=== PATIENT | female | born 1945 | race Caucasian/White ===

== ENCOUNTER 2016-09-08 06:29 | Day surgery (SDC) | payer MEDICARE, OTHER ==
[2016-09-07 09:48] VITALS: BMI 26.6
[~2016-09-08 06:29] MED LIST: LACTATED RINGERS 1,000 ML IV SCH
[2016-09-08] MEDS: PHENYLEPHRINE 10% OPHTH DROPS 5 ML BTL OP ONE ×3 (06:45→07:05)
[2016-09-08] MEDS: CYCLOPENTOLATE 1% OPHTH SOLN 2 ML BTL OP ONE ×3 (06:48→07:08)
[2016-09-08 06:52] VITALS: TEMP 97.9
[2016-09-08] MEDS: FLURBIPROFEN 0.03% OPHTH DROPS 2.5 ML BTL OP ONE ×3 (06:52→07:13)
[2016-09-08] MEDS ORDERED: LIDOCAINE 1% 20 ML VIAL (10MG/ML) FOR IV START INTRADERMA ONE (07:19)
[2016-09-08] MEDS: BUPIVACAINE (PF) 0.75% 5 ML, LIDOCAINE 4% (PF) 5 ML, HYALURONIDASE, HUMAN RECOMB 150 UNIT MISCELLANE ONE ×6 (07:49→07:55)
[2016-09-08] MEDS ORDERED: PROPOFOL 10 MG/ML 20 ML VIAL IV ONE (07:49)
[2016-09-08] MEDS ORDERED: TETRACAINE 0.5% OPHTH (PF) DROPS 4 ML BTL RIGHT EYE ONE (07:49)
[2016-09-08] MEDS: GENTAMICIN/PREDNISOL AC OPHTH OINT 3.5GM OPHTHALMIC ONE ×2 (07:51→08:03)
[2016-09-08] MEDS: TIMOLOL 0.5% OPHTH SOLN (PF) 0.2 ML DROPERETTE OP ONE ×2 (07:52→08:03)
[2016-09-08] MEDS ORDERED: BALANCED SALT IRRIG SOLN COMB2 15 ML IRRIG.SOLN IRRIGATION ONE ×2 (07:53→08:03)
[2016-09-08] MEDS ORDERED: HYALURONATE SODIUM INTRAOCULAR 1 EACH SYRINGE (10MG/ML) INTRAOCULA ONE ×2 (07:54→08:03)
[2016-09-08] MEDS ORDERED: EPINEPHrine (PF) 0.5 ML in BALANCED SALT IRRIG SOLN COMB2 500 ML IRRIGATION ONE (08:02)
[2016-09-08 08:18] VITALS: RESP 18
--- NOTE | 2016-09-08 08:18 | P.OP ---
Date of Procedure: 09/08/16 Preoperative Diagnosis: Postoperative Diagnosis: Procedure(s) Performed: PREOPERATIVE DIAGNOSIS: Cataract, right eye. POSTOPERATIVE DIAGNOSIS: Cataract, right eye. OPERATION: Phacoemulsification cataract, right eye. DESCRIPTION OF PROCEDURE: The patient was taken to the preoperative holding area. Intravenous Propofol was given so as to bring about adequate sedation. The following mixture was given for local anesthesia: 5 mL of 2% lidocaine, 5 mL of 0.75% Marcaine, and 1 mL of Wydase. Approximately 4 mL was injected in the retrobulbar space of the surgical eye. Additional 1 mL was then directed to the temporal area of the surgical eye. This was performed to allow adequate neurological block of the facial muscles. The patient was revived and then taken into the operative room. The patient was prepped and draped in the usual sterile manner for the operative eye. A lid speculum was put into position. The conjunctiva was resected back from the limbus in the 12 o'clock position. Bleeding was controlled with electrocautery. A #69 blade was then used and a half-thickness scleral incision approximately 1-mm posterior to the limbus was made on bare sclera. This was shelved in the clear cornea using a crescent knife. The paient's steep axis of astigmatism was marked using a pre-inked corneal marking device. Next a 15-degree blade was used to make a stab incision at the 3 o'clock position at the corneolimbal interface. Keratome blade was then used and the superior wound was extended into the anterior chamber. Viscoelastic was injected into the anterior chamber and to maintain its form. Next, a cystotome was used and a continuous anterior capsulotomy was made without difficulty. Hydrodissection using a blunt cannula and BSS was performed. Phaco probe was then employed and a groove extending from 12 to 6 o' clock in the lens was created. A Yohan wand was used through the stab incision so as to perform a divide and conquer technique. Next an irrigation aspiration probe was utilized and any residual cortex was removed from the eye. Again, viscoelastic was injected into the anterior chamber. An MERLYN Symfony toric posterior chamber lens implant was placed in the cartridge and injected into the anterior chamber without difficulty. The Sinskey hook was utilized to spin the lens into position and this was again performed without any difficulty. The irrigation and aspiration probe was again employed and any residual viscoelastic was removed from the eye. Then BSS was injected into the limbal stab incision and the anterior chamber re-inflated. The conjunctiva was reapproximated using electrocautery. One drop of 0.25% Timoptic was placed over the corneal along with TobraDex ophthalmic ointment. Two sterile patches and a Dahl eye shield were taped into position. The patient was transported to the recovery room in stable condition. Implants: Pathology: none sent Condition: stable Disposition: same day Indications for Procedure: Operative Findings: Description of Procedure:
[2016-09-08 08:33] VITALS: BP 111/63; PULSE 60
== END 2016-09-08 09:05 | disposition home or self-care (01) ==
LOC: OR 06:29
PROVIDERS: ATTEND Ophthalmology
DX: H25.11 Age-related nuclear cataract, right eye (principal); M19.90 Unspecified osteoarthritis, unspecified site; I10 Essential (primary) hypertension; E07.9 Disorder of thyroid, unspecified; K21.9 Gastro-esophageal reflux disease without esophagitis; Z79.891 Long term (current) use of opiate analgesic; Z79.899 Other long term (current) drug therapy; Z88.0 Allergy status to penicillin; Z88.1 Allergy status to other antibiotic agents; Z91.09 Other allergy status, other than to drugs and biological substances
CPT/HCPCS: 66984; V2787; C1780; J2001; J3470; J0171; J2704

== ENCOUNTER 2016-09-22 09:50 | Day surgery (SDC) | payer MEDICARE, OTHER ==
[2016-09-15 11:49] VITALS: BMI 26.6
[2016-09-22] MEDS: CYCLOPENTOLATE 1% OPHTH SOLN 2 ML BTL OP ONE ×3 (11:09→11:31)
[2016-09-22] MEDS: FLURBIPROFEN 0.03% OPHTH DROPS 2.5 ML BTL OP ONE ×3 (11:12→11:34)
[2016-09-22] MEDS: PHENYLEPHRINE 10% OPHTH DROPS 5 ML BTL OP ONE ×3 (11:16→11:37)
[2016-09-22 11:29] VITALS: TEMP 98.5
[2016-09-22] MEDS ORDERED: LIDOCAINE 1% 20 ML VIAL (10MG/ML) FOR IV START INTRADERMA ONE (11:32)
[2016-09-22] MEDS ORDERED: PROPOFOL 10 MG/ML 20 ML VIAL IV ONE (11:42)
[2016-09-22] MEDS ORDERED: fentaNYL (PF) 50 MCG/ML 2 ML AMP ONE (11:42)
[2016-09-22] MEDS ORDERED: MIDAZOLAM 2 MG/2 ML VIAL ONE (11:42)
[2016-09-22] MEDS ORDERED: TETRACAINE 0.5% OPHTH (PF) DROPS 4 ML BTL LEFT EYE ONE (11:46)
[2016-09-22] MEDS ORDERED: EPINEPHrine (PF) 0.5 ML in BALANCED SALT IRRIG SOLN COMB2 500 ML IRRIGATION ONE (11:49)
[2016-09-22] MEDS ORDERED: HYALURONATE SODIUM INTRAOCULAR 1 EACH SYRINGE (10MG/ML) INTRAOCULA ONE (11:51)
[2016-09-22] MEDS ORDERED: BALANCED SALT IRRIG SOLN COMB2 15 ML IRRIG.SOLN IRRIGATION ONE (11:51)
--- NOTE | 2016-09-22 12:09 | P.OP ---
Date of Procedure: 09/22/16 Preoperative Diagnosis: Postoperative Diagnosis: Procedure(s) Performed: PREOPERATIVE DIAGNOSIS: Cataract, left eye. POSTOPERATIVE DIAGNOSIS: Cataract, left eye. OPERATION: Phacoemulsification cataract, left eye. DESCRIPTION OF PROCEDURE: The patient was taken to the preoperative holding area. Intravenous Propofol was given so as to bring about adequate sedation. The following mixture was given for local anesthesia: 5 mL of 2% lidocaine, 5 mL of 0.75% Marcaine, and 1 mL of Wydase. Approximately 4 mL was injected in the retrobulbar space of the surgical eye. Additional 1 mL was then directed to the temporal area of the surgical eye. This was performed to allow adequate neurological block of the facial muscles. The patient was revived and then taken into the operative room. The patient was prepped and draped in the usual sterile manner for the operative eye. A lid speculum was put into position. The conjunctiva was resected back from the limbus in the 12 o'clock position. Bleeding was controlled with electrocautery. A #69 blade was then used and a half-thickness scleral incision approximately 1-mm posterior to the limbus was made on bare sclera. This was shelved in the clear cornea using a crescent knife. The steep axis of astigmatism was marked using a pre-inked corneal marking device. Next a 15-degree blade was used to make a stab incision at the 3 o'clock position at the corneolimbal interface. Keratome blade was then used and the superior wound was extended into the anterior chamber. Viscoelastic was injected into the anterior chamber and to maintain its form. Next, a cystotome was used and a continuous anterior capsulotomy was made without difficulty. Hydrodissection using a blunt cannula and BSS was performed. Phaco probe was then employed and a groove extending from 12 to 6 o' clock in the lens was created. A Yohan wand was used through the stab incision so as to perform a divide and conquer technique. Next an irrigation aspiration probe was utilized and any residual cortex was removed from the eye. Again, viscoelastic was injected into the anterior chamber. An MERLYN toric Symfony posterior chamber lens implant was placed in the cartridge and injected into the anterior chamber without difficulty. The Sinskey hook was utilized to spin the lens into position and this was again performed without any difficulty. The irrigation and aspiration probe was again employed and any residual viscoelastic was removed from the eye. Then BSS was injected into the limbal stab incision and the anterior chamber re-inflated. The conjunctiva was reapproximated using electrocautery. One drop of 0.25% Timoptic was placed over the corneal along with TobraDex ophthalmic ointment. Two sterile patches and a Dahl eye shield were taped into position. The patient was transported to the recovery room in stable condition. Implants: Pathology: none sent Condition: stable Disposition: same day Indications for Procedure: Operative Findings: Description of Procedure:
[2016-09-22 12:10] VITALS: BP 133/78; PULSE 54; RESP 18
[2016-09-22] MEDS ORDERED: BUPIVACAINE (PF) 0.75% 5 ML, LIDOCAINE 4% (PF) 5 ML, HYALURONIDASE, HUMAN RECOMB 150 UNIT MISCELLANE ONE ×3 (23:00)
[2016-09-22] MEDS ORDERED: TIMOLOL 0.5% OPHTH SOLN (PF) 0.2 ML DROPERETTE OP ONE (23:00)
[2016-09-22] MEDS ORDERED: GENTAMICIN/PREDNISOL AC OPHTH OINT 3.5GM OPHTHALMIC ONE (23:00)
== END 2016-09-22 12:44 | disposition home or self-care (01) ==
LOC: OR 09:50
PROVIDERS: ATTEND Ophthalmology
DX: H26.9 Unspecified cataract (principal); I10 Essential (primary) hypertension; E07.9 Disorder of thyroid, unspecified; K21.9 Gastro-esophageal reflux disease without esophagitis; Z88.0 Allergy status to penicillin; Z79.899 Other long term (current) drug therapy
CPT/HCPCS: 66984; V2787; C1780; J2001; J2250; J3470; J0171; J3010; J2704

== ENCOUNTER → 2017-01-11 | Outpatient (CLI) | payer MEDICARE ==
--- NOTE | 2017-01-11 16:18 | BD ---
EXAMINATION TYPE: MG DEXA axial skeleton. DATE OF EXAM: 01/11/2017 COMPARISON: 2013 CLINICAL HISTORY: 71-year-old female osteoporosis Height: 5'5 Weight: 160 FRAX RISK QUESTIONS: Alcohol (3 or more units per day): no Family History (Parent hip fracture): yes Glucocorticoids (More than 3mos): no (Ex: prednisone, prednisolone, methylprednisolone, dexamethasone, and hydrocortisone). History of Fracture in Adulthood: yes Secondary Osteoporosis: 1. Type 1 Diabetes: no 2. Hyperthyroidism: no 3. Menopause before 45: no 4. Malnutrition: no 5. Chronic liver disease: no Rheumatoid Arthritis: no Current Tobacco Use: no RISK FACTORS HISTORY OF: Surgery to /Hip(right/left)/ When: total hips rt 2013, left 2016 Diet low in dairy products/other sources of calcium: Postmenopausal woman: MEDICATIONS: Thyroid Medications: Which medication: Levothyroxine How Lon year Additional Medications: blood pressure, potassium, Additional History: osteoporosis, breast cancer 1996, radiation EXAM MEASUREMENTS: Bone mineral densitometry was performed using the [employer]. Bone mineral density as measured about the Lumbar spine is: ----- L1-L4(G/cm2): 1.161 T Score Values are as follows: ----- L2: -1.2 ----- L3: 0.8 ----- L4: 1.2 ----- L1-L4: -0.2 Bone mineral density has: Increased 5.8% since study of: 12/07/2013 IMPRESSION: Osteopenia as indicated by T score values in the lumbar spine. Patient is status post bilateral hip r eplacements. There is slightly increased risk of fracture and the patient may be considered for treatment. Re-Scre en 2-5 years. NOTE: T-SCORE=SD OF THE YOUNG ADULT MEAN.
== END | disposition home or self-care (01) ==
LOC: RADBDWWP 15:37
PROVIDERS: ATTEND Internal Medicine
DX: M85.88 Other specified disorders of bone density and structure, other site (principal)
CPT/HCPCS: 77080

== ENCOUNTER 2018-02-10 09:55 | Inpatient (IN) | payer MEDICARE ==
--- NOTE | 2018-02-10 10:29 | ED ---
General Adult HPI - General Chief complaint: Neuro Symptoms/Deficit Stated complaint: Facial numbness Time Seen by Provider: 02/10/18 10:02 Source: patient, RN notes reviewed, old records reviewed Mode of arrival: wheelchair Limitations: no limitations - History of Present Illness Initial comments: 72-year-old female presenting for evaluation of left-sided facial numbness and facial droop. Symptoms began yesterday evening approximately 14 hours prior to arrival. Patient reports some drooling associated with her symptoms. Denies headache. Denies vision changes. Denies extremity numbness or weakness. No gait instability. No chest pain. No abdominal pain. No history of TIA or CVA. - Related Data Home Medications Medication Instructions Recorded Confirmed Diltiazem Cd [Cardizem CD] 180 mg PO W/SUPPER 09/17/13 02/10/18 Venlafaxine HCl ER [Effexor Xr] 150 mg PO W/SUPPER 09/17/13 02/10/18 ALPRAZolam [Xanax] 0.25 mg PO Q8HR PRN 02/04/15 02/10/18 Cholecalciferol [Vitamin D3] 1,000 unit PO W/SUPPER 02/04/15 02/10/18 Omeprazole [PriLOSEC] 20 mg PO AC-BRKFST 02/04/15 02/10/18 Potassium Chloride ER [K-Dur 10] 10 meq PO W/SUPPER 02/04/15 02/10/18 Bisoprol/Hydrochlorothiazide [Ziac 1 tab PO W/SUPPER 09/07/16 02/10/18 5-6.25 MG] Levothyroxine Sodium [Tirosint] 25 mcg PO DAILY 09/07/16 02/10/18 Allergies Allergy/AdvReac Type Severity Reaction Status Date / Time amoxicillin trihydrate Allergy Unknown Verified 02/10/18 11:22 [From Augmentin] Penicillins Allergy Rash/Hives Verified 02/10/18 11:22 potassium clavulanate Allergy Unknown Verified 02/10/18 11:22 [From Augmentin] Review of Systems ROS Statement: Those systems with pertinent positive or pertinent negative responses have been documented in the HPI. ROS Other: All systems not noted in ROS Statement are negative. Past Medical History Past Medical History: Cancer, Hypertension, Osteoarthritis (OA), Thyroid Disorder Additional Past Medical History / Comment(s): varicose vein, hiatal hernia, hx anemia, hx breast cancer History of Any Multi-Drug Resistant Organisms: None Reported Past Surgical History: Breast Surgery, Cholecystectomy, Hysterectomy, Joint Replacement, Tonsillectomy Additional Past Surgical History / Comment(s): aidan hip replacement (left 2017), kidney stone removal/stents, breast lumpectomy-left, rt cataract surgery Past Anesthesia/Blood Transfusion Reactions: Postoperative Nausea & Vomiting ( PONV) Past Psychological History: Anxiety Smoking Status: Never smoker Past Alcohol Use History: None Reported Past Drug Use History: None Reported - Past Family History Mother Family Medical History: Cancer Daughter(s) Family Medical History: Cancer General Exam Limitations: no limitations General appearance: alert, in no apparent distress Head exam: Present: atraumatic, normocephalic Eye exam: Present: normal appearance, PERRL, EOMI ENT exam: Present: TM's normal bilaterally Neck exam: Present: normal inspection. Absent: tenderness, meningismus Respiratory exam: Present: normal lung sounds bilaterally. Absent: respiratory distress, wheezes Cardiovascular Exam: Present: regular rate, normal rhythm GI/Abdominal exam: Present: soft. Absent: distended, tenderness Extremities exam: Present: normal inspection, normal capillary refill. Absent: pedal edema Neurological exam: Present: alert, oriented X3, motor sensory deficit (NIH is 2) . Absent: CN II-XII intact (Left-sided facial droop and left-sided facial numbness.) Psychiatric exam: Present: normal affect, normal mood Skin exam: Present: warm, dry, intact. Absent: cyanosis, diaphoretic Course Vital Signs 02/10/18 09:57 Temperature 98.5 F Pulse Rate 65 Respiratory 20 Rate Blood Pressure 145/84 O2 Sat by Pulse 99 Oximetry EKG Findings - EKG Comments: EKG Findings:: EKG: Sinus bradycardia, LVH Q waves in inferior lead, no ST segment elevation rate of 59, ME interval 190, QRS duration 90, QTC 463 Medical Decision Making - Medical Decision Making 72-year-old female presenting with 12-14 hour history of left-sided facial weakness and numbness. On initial exam patient has lower facial weakness, she is able to raise her left eyebrow. No other focal findings. She is complaining of some slurred speech although this was not apparent on my exam. Initial NIH is 2. She is outside of the window for TPA consideration and presentation is concerning for early Heath's palsy. At the time of initial evaluation there is sparing of the left forehead, she has some very mild appreciable weakness on reevaluation in the left forehead. Stroke workup in the emergency Department is negative, negative head CT, no intracranial hemorrhage or mass effect, normal CBC, normal CMP, negative troponin. Chest x- ray negative for acute cardiopulmonary disease. She is given both aspirin and prednisone in the emergency department to treat both CVA and Heath's palsy. She will be admitted for further stroke workup. Case discussed with the admitting physician Dr Hughes who will accept, recommend CTA, this will be performed in the emergency department and is currently pending. - Lab Data Result diagrams: 02/10/18 10:30 02/10/18 10:30 Lab Results 02/10/18 02/10/18 02/10/18 Range/Units 10:30 10:30 10:30 WBC 5.2 (3.8-10.6) k/uL RBC 4.54 (3.80-5.40) m/uL Hgb 12.4 (11.4-16.0) gm/dL Hct 39.3 (34.0-46.0) % MCV 86.5 (80.0-100.0) fL MCH 27.4 (25.0-35.0) pg MCHC 31.7 (31.0-37.0) g/dL RDW 14.1 (11.5-15.5) % Plt Count 183 (150-450) k/uL Neutrophils % 61 % Lymphocytes % 28 % Monocytes % 6 % Eosinophils % 2 % Basophils % 1 % Neutrophils # 3.2 (1.3-7.7) k/uL Lymphocytes # 1.5 (1.0-4.8) k/uL Monocytes # 0.3 (0-1.0) k/uL Eosinophils # 0.1 (0-0.7) k/uL Basophils # 0.1 (0-0.2) k/uL Hypochromasia Slight PT (9.0-12.0) sec INR (<1.2) APTT (22.0-30.0) sec Sodium 142 (137-145) mmol/L Potassium 4.1 (3.5-5.1) mmol/L Chloride 105 (98-107) mmol/L Carbon Dioxide 28 (22-30) mmol/L Anion Gap 9 mmol/L BUN 12 (7-17) mg/dL Creatinine 0.77 (0.52-1.04) mg/dL Est GFR (CKD-EPI)AfAm 89 (>60 ml/min/1.73 sqM) Est GFR (CKD-EPI)NonAf 77 (>60 ml/min/1.73 sqM) Glucose 130 H (74-99) mg/dL Calcium 9.3 (8.4-10.2) mg/dL Total Bilirubin 0.5 (0.2-1.3) mg/dL AST 53 H (14-36) U/L ALT 47 (9-52) U/L Alkaline Phosphatase 64 (38-126) U/L Total Creatine Kinase 65 (30-135) U/L CK-MB (CK-2) 0.9 (0.0-2.4) ng/mL CK-MB (CK-2) Rel Index 1.4 Troponin I <0.012 (0.000-0.034) ng/mL Total Protein 6.9 (6.3-8.2) g/dL Albumin 3.9 (3.5-5.0) g/dL 02/10/18 Range/Units 10:30 WBC (3.8-10.6) k/uL RBC (3.80-5.40) m/uL Hgb (11.4-16.0) gm/dL Hct (34.0-46.0) % MCV (80.0-100.0) fL MCH (25.0-35.0) pg MCHC (31.0-37.0) g/dL RDW (11.5-15.5) % Plt Count (150-450) k/uL Neutrophils % % Lymphocytes % % Monocytes % % Eosinophils % % Basophils % % Neutrophils # (1.3-7.7) k/uL Lymphocytes # (1.0-4.8) k/uL Monocytes # (0-1.0) k/uL Eosinophils # (0-0.7) k/uL Basophils # (0-0.2) k/uL Hypochromasia PT 10.8 (9.0-12.0) sec INR 1.1 (<1.2) APTT 23.4 (22.0-30.0) sec Sodium (137-145) mmol/L Potassium (3.5-5.1) mmol/L Chloride (98-107) mmol/L Carbon Dioxide (22-30) mmol/L Anion Gap mmol/L BUN (7-17) mg/dL Creatinine (0.52-1.04) mg/dL Est GFR (CKD-EPI)AfAm (>60 ml/min/1.73 sqM) Est GFR (CKD-EPI)NonAf (>60 ml/min/1.73 sqM) Glucose (74-99) mg/dL Calcium (8.4-10.2) mg/dL Total Bilirubin (0.2-1.3) mg/dL AST (14-36) U/L ALT (9-52) U/L Alkaline Phosphatase (38-126) U/L Total Creatine Kinase (30-135) U/L CK-MB (CK-2) (0.0-2.4) ng/mL CK-MB (CK-2) Rel Index Troponin I (0.000-0.034) ng/mL Total Protein (6.3-8.2) g/dL Albumin (3.5-5.0) g/dL Disposition Clinical Impression: Cerebrovascular accident Disposition: ADMITTED IP TO THIS [facility] Condition: Stable Is patient prescribed a controlled substance at d/c from ED?: No Referrals: Sebastian Hughes MD [Primary Care Provider] - 1-2 days Time of Disposition: 11:51
[2018-02-10 11:07] LABS: Basophils # (A) 0.1 k/uL (0-0.2); Basophils % (A) 1 %; Eosinophils # (A) 0.1 k/uL (0-0.7); Eosinophils % (A) 2 %; HCT 39.3 % (34.0-46.0); HGB 12.4 gm/dL (11.4-16.0); Hypochromasia Slight; Lymphocytes # (A) 1.5 k/uL (1.0-4.8); Lymphocytes % (A) 28 %; MCH 27.4 pg (25.0-35.0); MCHC 31.7 g/dL (31.0-37.0); MCV 86.5 fL (80.0-100.0); Mean Platelet Volume 8.1; Monocytes # (A) 0.3 k/uL (0-1.0); Monocytes % (A) 6 %; Neutrophils # (A) 3.2 k/uL (1.3-7.7); Neutrophils % (A) 61 %; Platelet Count 183 k/uL (150-450); RBC 4.54 m/uL (3.80-5.40); RDW 14.1 % (11.5-15.5); WBC 5.2 k/uL (3.8-10.6)
[2018-02-10 11:14] LABS: Albumin 3.9 g/dL (3.5-5.0); Calcium 9.3 mg/dL (8.4-10.2); Potassium 4.1 mmol/L (3.5-5.1); Total Bilirubin 0.5 mg/dL (0.2-1.3); Total Protein 6.9 g/dL (6.3-8.2)
--- NOTE | 2018-02-10 11:14 | CT ---
EXAMINATION TYPE: CT brain wo con DATE OF EXAM: 02/10/2018 COMPARISON: None HISTORY: Left sided facial droop, slurred speech. Neuro deficits CT DLP: 913.2 mGycm Automated exposure control for dose reduction was used. FINDINGS: Old lacunar injury seen of the left temporal lobe near the temporal horn of the lateral ventricle odilia t is CSF attenuated. Small lacunar injuries are also seen at the inferior posterior basal ganglia aidan aterally. Very mild burden scattered hypoattenuated regions are seen within the subcortical and periv entricular white matter. There is symmetric prominence of the peripheral sulci and ventricular system compatible with age-related volume loss. No suspicious extra axial fluid collection. No acute hemorr ted, midline shift or mass effect. Calvarium is intact and paranasal sinuses are well aerated. IMPRESSION: NO FINDINGS TO CORRESPOND TO THE PATIENT'S NEUROLOGIC DEFICITS. HOWEVER GIVEN SYMPTOMS MR COULD BE PE RFORMED THERE IS INCREASE SENSITIVITY FOR ASSESSMENT OF INFARCT.
--- NOTE | 2018-02-10 11:17 | XR ---
EXAMINATION TYPE: XR chest 2V DATE OF EXAM: 02/10/2018 COMPARISON: 02/13/2010 HISTORY: Altered mental status. Neurologic deficits. TECHNIQUE: Frontal and lateral views of the chest are obtained. FINDINGS: There is no focal air space opacity, pleural effusion, or pneumothorax seen. The cardiac silhouette size is within normal limits. The osseous structures are intact. Cholecystectomy clips a re noted within the right upper quadrant. There is eventration of the hemidiaphragms. Partial visuali zation of surgical fixation of the left humerus. Probable skinfold overlies the right hemithorax infe riorly. IMPRESSION: No acute cardiopulmonary process.
[2018-02-10] MEDS ORDERED: ASPIRIN 325 MG TAB PO STA (11:22)
[2018-02-10] MEDS ORDERED: predniSONE 20 MG TAB PO STA (11:22)
[2018-02-10 11:29] LABS: Creatine Kinase 65 U/L (30-135); INR 1.1 (<1.2)
[2018-02-10 11:30] LABS: Partial Thromboplastin Time 23.4 sec (22.0-30.0); Prothrombin Time 10.8 sec (9.0-12.0)
[2018-02-10 11:43] LABS: Creatine Kinase MB 0.9 ng/mL (0.0-2.4); Troponin I <0.012 ng/mL (0.000-0.034)
--- NOTE | 2018-02-10 12:41 | P.HPIM ---
History of Present Illness H&P Date: 02/10/18 Chief Complaint: left facial weakness This is a 78-year-old female one of my patient with a previous medical history significant for hypertension and hypertensive cardiovascular disease with left ventricular hypertrophy, history of hyperlipidemia, history of anemia iron deficiency, history of breast cancer back in 1996 status post lumpectomy with radiation, patient was in the office 2 days ago and she saw the nurse practitioner for what appears to be a urinary tract infection she was placed on cefuroxime that she did not take, and the patient on woke up the yesterday feeling fine and toward the afternoon developed to have a burning sensation in the left side of her face and suddenly a couple the morning with significant weakness in the left side of the face with some jaw pain, she came to the ER 14 hours and after the incident, had a computed tomography scan of brain that was negative, chest x-ray was negative, she went for a CT angiography of the carotid and the brain still pending at the time of dictation , patient was examined in the ER and 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 Review of Systems Constitutional: Denies anorexia, Denies chronic headaches, Denies malaise, Denies weakness, Denies weight gain, Denies weight loss Eyes: denies blurred vision, denies bulging eye, denies decreased vision Ears: deny: decreased hearing Ears, nose, mouth and throat: Denies dental pain, Denies dysphagia, Denies neck fullness/pressure, Denies neck lump, Denies sore throat, Denies vertigo Cardiovascular: Reports high blood pressure, Denies chest pain, Denies decreased exercise tolerance, Denies dyspnea on exertion, Denies rapid heart beat, Denies shortness of breath, Denies syncope Respiratory: Denies congestion, Denies cough, Denies cough with sputum, Denies home oxygen, Denies sleep apnea, Denies snoring, Denies wheezing Gastrointestinal: Denies abdominal pain, Denies bloating, Denies BRBPR, Denies heartburn, Denies melena, Denies nausea, Denies vomiting Genitourinary: Denies dysuria, Denies hematuria Menstruation: Reports postmenopausal Musculoskeletal: Denies myalgias Musculoskeletal: absent: ankle pain, ankle stiffness, ankle swelling, elbow pain , elbow stiffness, elbow swelling, foot pain, foot stiffness, foot swelling, hand pain, hand stiffness, hand swelling, hip pain, hip stiffness, hip swelling , knee pain, knee stiffness, knee swelling, shoulder pain, shoulder stiffness, shoulder swelling, wrist pain, wrist stiffness, wrist swelling Integumentary: Denies pruritus, Denies rash Neurological: Reports numbness, Reports weakness (left facial weakness) Psychiatric: Reports anxiety, Reports depression Endocrine: Denies fatigue, Denies weight change Past Medical History Past Medical History: Cancer, GERD/Reflux, Hyperlipidemia, Hypertension, Osteoarthritis (OA), Thyroid Disorder Additional Past Medical History / Comment(s): varicose vein, hiatal hernia, hx anemia, hx breast cancer History of Any Multi-Drug Resistant Organisms: None Reported Past Surgical History: Breast Surgery, Cholecystectomy, Hysterectomy, Joint Replacement, Tonsillectomy Additional Past Surgical History / Comment(s): aidan hip replacement (left 2017), kidney stone removal/stents, breast lumpectomy-left, rt cataract surgery Past Anesthesia/Blood Transfusion Reactions: Postoperative Nausea & Vomiting ( PONV) Past Psychological History: Anxiety Smoking Status: Never smoker Past Alcohol Use History: None Reported Past Drug Use History: None Reported - Past Family History Mother Family Medical History: Cancer (mother at age of 70 from pancreatic cancer. ) Daughter(s) Family Medical History: Cancer (patient has 2 daughters one of her daughters with BRCA gene positive.) Son(s) Family Medical History: No Reported History (patient has one son no major medical problems.) Sister(s) Family Medical History: Thyroid Disorder (patient has 2 sisters with thyroid disease. And one with breast cancer.) Father Family Medical History: Myocardial Infarction ([place]) (father at age of 52 from [place] Medications and Allergies Home Medications Medication Instructions Recorded Confirmed Type Diltiazem Cd [Cardizem CD] 180 mg PO W/SUPPER 09/17/13 02/10/18 History Venlafaxine HCl ER [Effexor Xr] 150 mg PO W/SUPPER 09/17/13 02/10/18 History ALPRAZolam [Xanax] 0.25 mg PO Q8HR PRN 02/04/15 02/10/18 History Cholecalciferol [Vitamin D3] 1,000 unit PO W/SUPPER 02/04/15 02/10/18 History Omeprazole [PriLOSEC] 20 mg PO AC-BRKFST 02/04/15 02/10/18 History Potassium Chloride ER [K-Dur 10] 10 meq PO W/SUPPER 02/04/15 02/10/18 History Bisoprol/Hydrochlorothiazide [Ziac 1 tab PO W/SUPPER 09/07/16 02/10/18 History 5-6.25 MG] Levothyroxine Sodium [Tirosint] 25 mcg PO DAILY 09/07/16 02/10/18 History Allergies Allergy/AdvReac Type Severity Reaction Status Date / Time amoxicillin trihydrate Allergy Unknown Verified 02/10/18 11:22 [From Augmentin] Penicillins Allergy Rash/Hives Verified 02/10/18 11:22 potassium clavulanate Allergy Unknown Verified 02/10/18 11:22 [From Augmentin] Physical Exam Vitals: Vital Signs Temp Pulse Resp BP Pulse Ox 02/10/18 10:14 130/76 93 L 02/10/18 09:57 98.5 F 65 20 145/84 99 Intake and Output 02/09/18 02/10/18 02/10/18 22:59 06:59 14:59 Other: Weight 75.75 kg - Constitutional General appearance: no acute distress - EENT Eyes: anicteric sclerae, EOMI, PERRLA, no ptosis, no scleral icterus, normal appearance ENT: no NA/AT (left-sided facial droop), normal oropharynx, no pharyngeal erythema, no thrush, no tonsillar exudates Ears: bilateral: normal - Neck Neck: no lymphadenopathy, normal ROM, no rigidity, no stridor, no thyromegaly Carotids: bilateral: upstroke normal Thyroid: bilateral: normal size - Respiratory Respiratory: bilateral: diminished, negative: dullness, rales, rhonchi, wheezing , prolonged expiration, prolonged inspiration - Cardiovascular Rhythm: regular Heart sounds: normal: S1, S2 Abnormal Heart Sounds: no rub, no S3 Gallop, no S4 Gallop, no click - Gastrointestinal General gastrointestinal: normal bowel sounds, soft, no splenomegaly, no tenderness, no umbilical hernia, no ventral hernia - Integumentary Integumentary: normal, normal turgor - Neurologic Neurologic: CNII-XII intact, focal deficits (left-sided facial droop) - Musculoskeletal Musculoskeletal: gait normal, strength equal bilaterally - Psychiatric Psychiatric: A&O x's 3, appropriate affect, intact judgment & insight Results CBC & Chem 7: 02/10/18 10:30 02/10/18 10:30 Labs: Abnormal Lab Results - Last 24 Hours (Table) 02/10/18 Range/Units 10:30 Glucose 130 H (74-99) mg/dL AST 53 H (14-36) U/L Thrombosis Risk Factor Assmnt - DVT/VTE Prophylaxis DVT/VTE Prophylaxis: Pharmacologic Prophylaxis ordered, Mechanical Prophylaxis ordered Assessment and Plan Assessment: Assessment and plan: 1. Heath's palsy. Start the patient on prednisone 60 mg orally once every day, continue patient on Famvir 500 mg orally twice every day, continue supportive care, start the patient on B complex once every day as well. 2. Hypertension and hypertensive cardiovascular disease. Continue patient on Ziac 5/6.25 mg orally once every day as well as Cardizem CD 180 mg orally once every day. 3. Hyperlipidemia. Low-cholesterol diet. 4. History of iron deficiency anemia resolved. 5. History of breast cancer status post left lumpectomy with radiation therapy. 6. Anxiety and depressive disorder continue patient on Effexor XR 150 mg orally once every day as well as Xanax as needed. 7. Hypothyroidism. Continue Synthroid 25 g orally once every day. 8. GERD. Continue patient on PPI. 9. DVT prophylaxis. Heparin 5000 units subcutaneously every 12 hours. 10. GI prophylaxis. Continue same treatment. 11. Admitted to inpatient. Estimated length of stay 2 midnights. 12. Patient is full code.
--- NOTE | 2018-02-10 13:57 | CT ---
EXAMINATION TYPE: CT angio head neck DATE OF EXAM: 02/10/2018 HISTORY: Altered mental status and neurologic deficits. COMPARISON: 02/10/2018 Automated Exposure Control for Dose Reduction was Utilized. TECHNIQUE: CTA scan of the neck is performed with IV Contrast, patient injected with 65 mL of Isovue 370, axial images are obtained, coronal and sagittal reformatted images are reviewed. Three-D recons tructed images are created on an independent workstation and reviewed. FINDINGS: Carotid/Vascular Structures: There is conventional three-vessel branch pattern of the aortic arch. Th e common carotids, vertebral arteries, and internal carotid arteries are patent. With regards to the intracranial vasculature there is also patency of the internal carotid arteries and the [place]. No focal stenoses or vascular occlusion is identified. No focal aneurysmal outpouching. Other: Multilevel moderate degenerative change of the cervical spine is seen with reversal of the usu al cervical lordosis and anterolisthesis (grade 1) of C4 and C5. IMPRESSION: No evidence of vascular occlusion, aneurysmal outpouching or hemodynamically significant stenosis.
[2018-02-10 16:03] VITALS: RESP 18
[2018-02-10] MEDS ORDERED: ALPRAZolam 0.25 MG TAB PO PRN (16:05)
[2018-02-10] MEDS ORDERED: methylPREDNISolone SOD SUCCI 125 MG/2 ML VIAL IV SCH (16:15)
[2018-02-10] MEDS: HYDROcodone/APAP 10-325MG 1 EACH TAB PO SCH (16:48)
[2018-02-10 16:52] LABS: Glucose,Whole Blood 128 mg/dL (75-99)
[2018-02-10] MEDS ORDERED: CHOLECALCIFEROL 1,000 UNIT TAB PO SCH (17:30)
[2018-02-10] MEDS ORDERED: ATORVASTATIN 10 MG TAB PO SCH (17:30)
[2018-02-10] MEDS ORDERED: DILTIAZEM CD 180 MG CAP.ER.24H PO SCH (17:30)
[2018-02-10] MEDS ORDERED: POTASSIUM CHLORIDE ER 10 MEQ TAB.ER.PRT PO SCH (17:30)
[2018-02-10] MEDS ORDERED: BISOPROLOL-HCTZ 5-6.25 MG 1 EACH TAB PO SCH (17:30)
[2018-02-10] MEDS ORDERED: VENLAFAXINE HCL ER 150 MG CAP PO SCH (17:30)
[2018-02-10] MEDS: INSULIN ASPART 100 UNIT/ML 1 ML 10 ML VIAL SQ SCH ×2 (17:47→22:18)
[2018-02-10] MEDS: methylPREDNISolone SOD SUCCI 250 MG in SODIUM CHLORIDE 0.9% 100 ML IVPB SCH (17:54)
[2018-02-10] MEDS: cycloSPORINE 0.05% OPHTH 0.4 ML DROPERETTE BOTH EYES SCH (17:55)
--- NOTE | 2018-02-10 20:45 | MR ---
EXAMINATION TYPE: MR angio head wo con DATE OF EXAM: 02/10/2018 COMPARISON: None HISTORY: Left side facial weakness TECHNIQUE: Time of flight images focusing on the [place] were performed without contrast. FINDINGS: There is arterial flow in the anterior middle and posterior cerebral arteries. There is art erial flow in both distal internal carotid arteries. There is fairly symmetric appearance of the dist al vertebral arteries. Vertebrobasilar artery system appears normal. There is no mass effect. I see n o evidence of stenosis. There is no sign of aneurysm or neovascularity. There is no sign of patency o f the posterior communicating arteries. IMPRESSION: Normal MR angiography of the brain.
[2018-02-10 20:50] LABS: Glucose,Whole Blood 160 mg/dL (75-99)
--- NOTE | 2018-02-10 20:51 | MR ---
EXAMINATION TYPE: MR brain wo con DATE OF EXAM: 02/10/2018 COMPARISON: None HISTORY: Left side facial weakness Standard multiplanar, multisequence MRI departmental protocol Multiplanar, multisequence images of the brain were acquired. Diffusion weighted imaging was performe d. FINDINGS: There is cerebral cortical atrophy appropriate for age. There are numerous white matter hig h signal foci in the T2 and FLAIR images in the periventricular white matter that measure up to 7 mm. Total number is approximately 30. Brainstem is intact. There is slight thinning of the corpus callos um. There is no mass effect nor midline shift. There is no sign of intracranial hemorrhage. There is no evidence of cortical infarct. Sella turcica appears normal. There is no evidence of orbital mass. There is normal flow-void in the anterior middle and posterior cerebral arteries. IMPRESSION: Mild cerebral cortical atrophy appropriate for age. Mild to moderate white matter signal changes are nonspecific and could relate to chronic small vessel ischemia or demyelinating disease.
[2018-02-10] MEDS ORDERED: FAMCICLOVIR 500 MG TAB PO SCH (21:00)
[2018-02-10] MEDS ORDERED: DOCUSATE 100 MG CAP PO SCH (21:00)
[2018-02-10] MEDS: HEPARIN SODIUM,PORCINE 5,000 UNIT/ML 1 ML VIAL SQ SCH (22:16)
[2018-02-11] MEDS: methylPREDNISolone SOD SUCCI 250 MG in SODIUM CHLORIDE 0.9% 100 ML IVPB SCH ×2 (00:30→09:47)
[2018-02-11 04:06] LABS: Hemoglobin A1C 6.5 % (4.0-6.0)
[2018-02-11 06:06] LABS: Glucose,Whole Blood 150 mg/dL (75-99)
[2018-02-11] MEDS ORDERED: LEVOTHYROXINE 25 MCG TAB PO SCH (06:30)
[2018-02-11] MEDS: INSULIN ASPART 100 UNIT/ML 1 ML 10 ML VIAL SQ SCH ×2 (07:05→12:51)
[2018-02-11 07:16] LABS: Basophils % (A) 0 %; Eosinophils % (A) 0 %; HCT 40.4 % (34.0-46.0); HGB 12.6 gm/dL (11.4-16.0); Lymphocytes # (A) 1.2 k/uL (1.0-4.8); Lymphocytes % (A) 14 %; MCH 26.9 pg (25.0-35.0); MCHC 31.2 g/dL (31.0-37.0); MCV 86.2 fL (80.0-100.0); Mean Platelet Volume 8.1; Monocytes # (A) 0.1 k/uL (0-1.0); Monocytes % (A) 1 %; Neutrophils % (A) 85 %; Platelet Count 215 k/uL (150-450); RBC 4.69 m/uL (3.80-5.40); RDW 13.9 % (11.5-15.5); WBC 8.3 k/uL (3.8-10.6)
[2018-02-11] MEDS ORDERED: PANTOPRAZOLE 40 MG TABLET PO SCH (07:30)
[2018-02-11 07:32] LABS: ALT 37 U/L (9-52); AST 46 U/L (14-36); Albumin 4.1 g/dL (3.5-5.0); Alkaline Phosphatase 61 U/L (38-126); Anion Gap 11 mmol/L; Blood Urea Nitrogen 13 mg/dL (7-17); Calcium 9.6 mg/dL (8.4-10.2); Carbon Dioxide 25 mmol/L (22-30); Chloride 104 mmol/L (98-107); Cholesterol 161 mg/dL (<200); Glucose 165 mg/dL (74-99); HDL Cholesterol 55 mg/dL (40-60); LDL Cholesterol,Calculated 83 mg/dL (0-99); Potassium 4.2 mmol/L (3.5-5.1); Sodium 140 mmol/L (137-145); Total Bilirubin 0.5 mg/dL (0.2-1.3); Triglycerides 113 mg/dL (<150)
--- NOTE | 2018-02-11 08:01 | CONS ---
CONSULTATION DATE OF CONSULTATION: 02/10/2018 CHIEF COMPLAINT: Left facial weakness. HISTORY OF PRESENT ILLNESS: Mrs. Estrada is a pleasant 72-year-old female who is being evaluated today on 02/10/2018 by the neurology service per the request of Dr. Hughes for left facial weakness. The patient states that when she went to bed last night, she noticed minimal abnormal sensation involving her left face. She did not look at herself in the mirror. When she woke up this morning, she noticed that the symptoms of tingling is on the left side of her face and when she went to the mirror, she noticed significant weakness on the left face. She denies any extremity weakness or numbness and denies any visual changes. She was brought into [facility] Emergency Room for further workup and management. A CT scan of the brain was done, which was normal. A CT angiogram of the brain and neck were done, both of which were normal. Her CBC and cardiac enzymes were normal. Her comprehensive metabolic profile showed mild hyperglycemia at 130 and slightly elevated AST at 53. At the time of my evaluation, she is lying in her bed and appears to be in no acute distress. She denies any changes in her symptoms since her admission. PAST MEDICAL HISTORY: Gastroesophageal reflux disease, dyslipidemia, hypertension, arthritis, hypothyroidism, history of breast cancer, hiatal hernia, history of cholecystectomy, hysterectomy, tonsillectomy, orthopedic surgeries, breast surgery, cataract surgery, history of nephrolithiasis and renal stent placement. She also reports a history of anxiety disorder. SOCIAL HISTORY: She denies any tobacco, alcohol or drug use. FAMILY HISTORY: Positive for cancer. HOME MEDICATIONS: Reviewed in the chart. ALLERGIES: AUGMENTIN, PENICILLIN. REVIEW OF SYSTEMS: As mentioned above and otherwise negative. PHYSICAL EXAM: Vital signs show a temperature of 98.5, pulse 65, respiration 16, blood pressure 141/75. GENERAL APPEARANCE: The patient is a well-developed female, who appears to be in no acute distress. HEENT: Normocephalic, atraumatic. Significant left facial weakness is noticed. NECK: Supple with no masses felt. CARDIOVASCULAR: Regular rate and rhythm. ABDOMEN: Nontender, nondistended. Extremities showed no edema or clubbing. NEUROLOGICAL EXAM: The patient is awake, alert, and oriented x3. Speech and language are normal. Strength is full in all 4 extremities. Sensory exam was normal to light touch in all 4 extremities. Cranial nerve testing showed significant left facial weakness that is also involving the left forehead. IMPRESSION: 1. Left facial weakness. 2. 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 3. History of hypertension. RECOMMENDATION: The patient's left facial weakness appears to be due to acute Heath's palsy. I had a lengthy discussion with the patient regarding the prognosis. At this time, I do recommend IV steroid therapy. I will put her on IV Solu-Medrol. She will need oral tapering dose once she is cleared for discharge. I also recommend antiviral therapy with either Valtrex or Famvir. I will order an MRI/MRA of the brain to rule out any structural etiologies. Continue the rest of your current workup and management. I will continue to follow with you. Further recommendations to follow. Thank you, Dr. Hughes, for allowing me to participate in the care of your patient. If you have any questions, please feel free to contact me. YURI / CHARISSA: [id number] /
[2018-02-11] MEDS: HYDROcodone/APAP 10-325MG 1 EACH TAB PO SCH (08:02)
[2018-02-11] MEDS: HEPARIN SODIUM,PORCINE 5,000 UNIT/ML 1 ML VIAL SQ SCH (08:05)
[2018-02-11] MEDS ORDERED: ASPIRIN 325 MG TAB PO SCH (09:00)
[2018-02-11] MEDS ORDERED: BISOPROLOL-HCTZ 5-6.25 MG 1 EACH TAB PO SCH ×2 (09:00)
[2018-02-11] MEDS: cycloSPORINE 0.05% OPHTH 0.4 ML DROPERETTE BOTH EYES SCH (09:45)
[2018-02-11 12:08] LABS: Glucose,Whole Blood 214 mg/dL (75-99)
--- NOTE | 2018-02-11 13:27 | P.DS ---
Providers Date of admission: 02/10/18 12:02 Expected date of discharge: 02/11/18 Attending physician: Sebastian Hughes Consults: 02/10/18 12:03 Consult Physician Routine Consulting Provider: Lynnette Aquino Consult Reason/Comments: CVA, Vs Heath's Palsy Do you want consulting provider notified?: Yes Primary care physician: Sebastian Hughes Hospital Course: This is a 78-year-old female one of my patient with a previous medical history significant for hypertension and hypertensive cardiovascular disease with left ventricular hypertrophy, history of hyperlipidemia, history of anemia iron deficiency, history of breast cancer back in 1996 status post lumpectomy with radiation, patient was in the office 2 days ago and she saw the nurse practitioner for what appears to be a urinary tract infection she was placed on cefuroxime that she did not take, and the patient on woke up the yesterday feeling fine and toward the afternoon developed to have a burning sensation in the left side of her face and suddenly a couple the morning with significant weakness in the left side of the face with some jaw pain, she came to the ER 14 hours and after the incident, had a computed tomography scan of brain that was negative, chest x-ray was negative, she went for a CT angiography of the carotid and the brain still pending at the time of dictation , patient was examined in the ER and she appeared to have a Ehath's palsy she was given steroid 60 mg orally she will be started on Famvir 500 mg orally twice every day, and she will be admitted to the hospital for evaluation. 02/11: Repeat lab work is essentially normal except for AST of 46. Blood sugars are running between 150 and 165. Triglycerides 113, cholesterol 161, LDL 83 and HDL 55. Patient has been seen by Dr. Aquino who has changed her steroids to IV Solu-Medrol and plan for oral tapering dose at discharge along with continuing antiviral therapy. MRI of the brain showed mild cerebral cortical atrophy appropriate for age. Mild to moderate white matter signal changes are nonspecific and could relate to chronic small vessel ischemia or demyelinating disease. MR angiography of the brain was normal. CT angiogram of the head and neck showed no evidence of vascular occlusion, aneurysmal outpouching or hemodynamically significant stenosis. Patient has had no worsening of her symptoms. She is able to close her left eye. She continues to have drooping and weakness of the left cheek area. No weakness to upper or lower extremities. Patient has ambulated without difficulty, no lightheadedness or dizziness. Patient does complain of difficulty sleeping and a prescription for Ambien has been provided. Maps completed and no account was found. Patient will continue on prednisone for home, antiviral has been discontinued. Patient will be discharged home today in stable condition. Discharge diagnoses: 1. Heath's palsy. 2. Hypertension and hypertensive cardiovascular disease. 3. Hyperlipidemia. 4. History of iron deficiency anemia resolved. 5. History of breast cancer status post left lumpectomy with radiation therapy. 6. Generalized anxiety disorder and recurrent depression 7. Hypothyroidism. 8. GERD. Discharge plan: Return home Impression and plan of care have been directed as dictated by the signing physician. Elayne Manning nurse practitioner acting as scribe for signing physician. Patient Condition at Discharge: Good Plan - Discharge Summary Discharge Rx Participant: No New Discharge Prescriptions: New cycloSPORINE 0.05% OPHTH SOLN [Restasis] 1 drops BOTH EYES Q12HR droperette predniSONE 60 mg PO DAILY #42 tab Zolpidem [Ambien] 5 mg PO HS PRN 7 Days #7 tab PRN Reason: Insomnia Continue Venlafaxine HCl ER [Effexor XR] 150 mg PO W/SUPPER Diltiazem Cd [Cardizem CD] 180 mg PO W/SUPPER Potassium Chloride ER [K-Dur 10] 10 meq PO W/SUPPER Omeprazole [PriLOSEC] 20 mg PO AC-BRKFST ALPRAZolam [Xanax] 0.25 mg PO Q8HR PRN PRN Reason: Anxiety Cholecalciferol [Vitamin D3] 1,000 unit PO W/SUPPER Levothyroxine Sodium [Tirosint] 25 mcg PO DAILY Bisoprol/Hydrochlorothiazide [Ziac 5-6.25 MG] 1 tab PO W/SUPPER Atorvastatin [Lipitor] 10 mg PO W/SUPPER HYDROcodone/APAP 10-325MG [[place] 10-325] 1 tab PO BID Discharge Medication List Diltiazem Cd [Cardizem CD] 180 mg PO W/SUPPER 09/17/13 [History] Venlafaxine HCl ER [Effexor XR] 150 mg PO W/SUPPER 09/17/13 [History] ALPRAZolam [Xanax] 0.25 mg PO Q8HR PRN 02/04/15 [History] Cholecalciferol [Vitamin D3] 1,000 unit PO W/SUPPER 02/04/15 [History] Omeprazole [PriLOSEC] 20 mg PO AC-BRKFST 02/04/15 [History] Potassium Chloride ER [K-Dur 10] 10 meq PO W/SUPPER 02/04/15 [History] Bisoprol/Hydrochlorothiazide [Ziac 5-6.25 MG] 1 tab PO W/SUPPER 09/07/16 [ History] Levothyroxine Sodium [Tirosint] 25 mcg PO DAILY 09/07/16 [History] Atorvastatin [Lipitor] 10 mg PO W/SUPPER 02/10/18 [History] HYDROcodone/APAP 10-325MG [[place] 10-325] 1 tab PO BID 02/10/18 [History] Zolpidem [Ambien] 5 mg PO HS PRN 7 Days #7 tab 02/11/18 [Rx] cycloSPORINE 0.05% OPHTH SOLN [Restasis] 1 drops BOTH EYES Q12HR droperette [Rx] predniSONE 60 mg PO DAILY #42 tab 02/11/18 [Rx] Follow up Appointment(s)/Referral(s): Sebastian Hughes MD [Primary Care Provider] - 02/18/18 10:45 am Lynnette Aquino MD [STAFF PHYSICIAN] - 2 Weeks (Heath's palsy and white matter changes) Patient Instructions/Handouts: Heath Palsy (DC), Ischemic Stroke (GEN) Discharge Disposition: HOME SELF-CARE
[2018-02-11 13:47] VITALS: BP 135/72; PULSE 72; TEMP 98.5
--- NOTE | 2018-02-11 16:29 | P.PN ---
Subjective Progress Note Date: 02/11/18 Principal diagnosis: Montoya's palsy This is a pleasant 72-year-old female continuing be evaluated by the neurology service for left facial weakness. Her history and physical are most compatible with Montoya's palsy. She is responding somewhat to IV steroids and antiviral treatment. She has had no new focal neurological deficit since admission. CT of the brain was normal CTA of the brain and neck were normal. Her MRI of the brain showed no acute intracranial abnormalities or space- occupying lesions. It did show 30 lesions in the white matter. Some of which are periventricular. MRA was normal. At time of my exam she is resting comfortably in bed in no acute distress. Note that she does see [facility] and has been without her [facility] for at least a month because of the cost. She denies any significant visual disturbances but she is having some discomfort in her left eye. Objective - Vital Signs Vital signs: Vital Signs Temp 98.5 F 02/11/18 12:00 Pulse 72 02/11/18 12:00 Resp 18 02/11/18 12:00 BP 135/72 02/11/18 12:00 Pulse Ox 96 02/11/18 12:00 Intake & Output 02/10/18 02/11/18 02/11/18 18:59 06:59 18:59 Intake Total 480 Balance 480 Weight 75.75 kg 78.2 kg Intake: Oral 480 Other: Voiding Method Toilet Toilet Toilet # Voids 1 - Constitutional General appearance: Present: cooperative, no acute distress - EENT Eyes: Present: EOMI, PERRLA. Absent: abnormal pupil, ptosis ENT: Present: hearing grossly normal - Neck Neck: Present: normal ROM. Absent: rigidity - Respiratory Respiratory: negative: prolonged expiration, prolonged inspiration - Cardiovascular Rhythm: regular - Gastrointestinal General gastrointestinal: Absent: distended, tenderness - Neurologic Neurologic Comment(s): She is awake alert and oriented 3. Speech and language are normal. Strength is full in all 4 extremities. There is no sensory deficit. She has significant left facial weakness involving the left forehead. She is able to close her left eye completely with effort. No tremors or seizure-like activities are seen. - Labs CBC & Chem 7: 02/11/18 06:36 02/11/18 06:36 Labs: Abnormal Lab Results - Last 24 Hours (Table) 02/10/18 02/10/18 02/10/18 Range/Units 10:30 16:51 20:47 Glucose (74-99) mg/dL POC Glucose (mg/dL) 128 H 160 H (75-99) mg/dL Hemoglobin A1c 6.5 H (4.0-6.0) % AST (14-36) U/L 02/11/18 02/11/18 02/11/18 Range/Units 06:04 06:36 11:55 Glucose 165 H (74-99) mg/dL POC Glucose (mg/dL) 150 H 214 H (75-99) mg/dL Hemoglobin A1c (4.0-6.0) % AST 46 H (14-36) U/L Assessment and Plan (1) Weakness on left side of face Current Visit: Yes Status: Acute Code(s): R29.810 - FACIAL WEAKNESS SNOMED Code(s): 591881333 (2) Chronic dryness of left eye Current Visit: Yes Status: Chronic Code(s): H04.122 - DRY EYE SYNDROME OF LEFT LACRIMAL GLAND SNOMED Code(s): 193411215 (3) Montoya's palsy Current Visit: Yes Status: Acute Code(s): G51.0 - MONTOYA'S PALSY SNOMED Code (s): 566206577 (4) White matter lesion of central nervous system Current Visit: Yes Status: Acute Code(s): G93.89 - OTHER SPECIFIED DISORDERS OF BRAIN SNOMED Code(s): 80955184 Plan: The patient's left facial weakness appears to be due to acute Montoya's palsy which is resolving slightly with IV steroids and antivirals. On discharge she will continue oral steroids and oral antivirals as outlined. As for her white matter lesions found on MRI of the brain. We discussed these findings and the fact that we will see her in outpatient setting to rule out any demyelinating process. Otherwise she is cleared from neurological standpoint. I did recommend that she follow up as soon as possible with her straight slicing machine operator. Nursing staff has instructed her on taping her eye shut especially during sleep to avoid drying out. She has been given sample bottles of orthostasis that should last her about a week until she can get in with her straight slicing machine operator. She is otherwise cleared from a neurological standpoint to see us outpatient setting. I have performed a history and physical on the above patient. I have reviewed the above note, and agree.
--- NOTE | 2018-02-22 16:28 | ECHOF ---
Referral Reason:Thrombus MEASUREMENTS -------- HEIGHT: 165.1 cm WEIGHT: 75.7 kg BP: RVIDd: 2.9 cm (< 3.3) IVSd: 1.3 cm (0.6 - 1.1) LVIDd: 4.1 cm (3.9 - 5.3) LVPWd: 1.2 cm (0.6 - 1.1) IVSs: 1.5 cm LVIDs: 2.6 cm LVPWs: 2.0 cm Ao Diam: 2.8 cm (2.0 - 3.7) AV Cusp: 1.9 cm (1.5 - 2.6) LA Diam: 4.1 cm (2.7 - 3.8) MV EXCURSION: 13.189 mm (> 18.000) MV EF SLOPE: 51 mm/s (70 - 150) EPSS: 0.5 cm MV E Mason: 0.66 m/s MV DecT: 272 ms MV A Mason: 0.76 m/s MV E/A Ratio: 0.86 RAP: 5.00 mmHg RVSP: 9.42 mmHg FINDINGS -------- Sinus rhythm. This was a technically good study. The left ventricular size is normal. There is borderline concentric left ventricular hypertrophy. Overall left ventricular systolic function is normal with, an EF between 55 - 60 %. The right ventricle is mildly enlarged. The left atrium is normal in size. The right atrium is normal in size. The aortic valve is trileaflet and appears structurally normal. Mild mitral regurgitation is present. Mild tricuspid regurgitation present. The right ventricular systolic pressure, as measured by Doppl er, is 9.42mmHg. Pulmonic valve appears structurally normal. The aortic root size is normal. The pericardium is normal. CONCLUSIONS -------- 1. Sinus rhythm. 2. This was a technically good study. 3. The left ventricular size is normal. 4. There is borderline concentric left ventricular hypertrophy. 5. Overall left ventricular systolic function is normal with, an EF between 55 - 60 %. 6. The right ventricle is mildly enlarged. 7. The left atrium is normal in size. 8. The right atrium is normal in size. 9. The aortic valve is trileaflet and appears structurally normal. 10. Mild mitral regurgitation is present. 11. Mild tricuspid regurgitation present. 12. The right ventricular systolic pressure, as measured by Doppler, is 9.42mmHg. 13. Pulmonic valve appears structurally normal. 14. The aortic root size is normal. 15. The pericardium is normal. [employer]: Anastasiya Riggs RDCS
== END 2018-02-11 16:38 | disposition home or self-care (01) | DRG 74 ==
LOC: EC 09:55 → 3SCARD 12:02
PROVIDERS: ADMIT Internal Medicine; ATTEND Internal Medicine
DX: G51.0 Bell's palsy (principal); F33.9 Major depressive disorder, recurrent, unspecified; E03.9 Hypothyroidism, unspecified; E78.5 Hyperlipidemia, unspecified; F41.1 Generalized anxiety disorder; H04.129 Dry eye syndrome of unspecified lacrimal gland; I11.9 Hypertensive heart disease without heart failure; K21.9 Gastro-esophageal reflux disease without esophagitis; Z80.0 Family history of malignant neoplasm of digestive organs; Z80.3 Family history of malignant neoplasm of breast; Z82.49 Family history of ischemic heart disease and other diseases of the circulatory system; Z85.3 Personal history of malignant neoplasm of breast; Z87.442 Personal history of urinary calculi; Z90.49 Acquired absence of other specified parts of digestive tract; Z90.710 Acquired absence of both cervix and uterus; Z96.642 Presence of left artificial hip joint; Z98.41 Cataract extraction status, right eye; Z79.899 Other long term (current) drug therapy; Z88.1 Allergy status to other antibiotic agents; Z88.0 Allergy status to penicillin
CPT/HCPCS: 36415; 70450; 70496; 70498; 70544; 70551; 71046; 80053; 80061; 82550; 82553; 83036; 84484; 85025; 85610; 85730; 93005; 93306; 99285

== ENCOUNTER 2019-02-08 12:00 | Inpatient (IN) | payer MEDICARE ==
[2019-02-08] MEDS ORDERED: SODIUM CHLORIDE 0.9% 1,000 ML IV STA (12:10)
[2019-02-08] MEDS ORDERED: ONDANSETRON 4 MG/2 ML VIAL IVP STA (12:24)
[2019-02-08] MEDS ORDERED: KETOROLAC 30 MG/ML 1 ML VIAL IVP STA (12:24)
--- NOTE | 2019-02-08 12:40 | ED ---
General Adult HPI - General Source: patient, RN notes reviewed Mode of arrival: ambulatory Limitations: no limitations <Demetris Tinajero - Last Filed: 02/08/19 14:44> <Delbert Giron - Last Filed: 02/08/19 17:12> - General Chief complaint: Urogenital Stated complaint: kidney stones Time Seen by Provider: 02/08/19 12:10 - History of Present Illness Initial comments: 73-year-old female patient emergency Department chief complaint left flank pain. Patient states that she was recently treated for urinary tract infection states that she finished up on Bactrim. Patient states that she's developed this pain in her left flank region. She does have a history of stones this feels slightly different. She had some nausea no vomiting she does have intermittent constipation which is normal for her. No current dysuria, hematuria, fevers or chills. She does admit the pain is uncomfortable. Patient did call her urol ogist who stated that on her last imaging she had a stone in the left kidney but was very small. (Demetris Tinajero) - Related Data Home Medications Medication Instructions Recorded Confirmed Diltiazem Cd [Cardizem CD] 180 mg PO W/SUPPER 09/17/13 02/08/19 Venlafaxine HCl ER [Effexor XR] 150 mg PO W/SUPPER 09/17/13 02/08/19 ALPRAZolam [Xanax] 0.25 mg PO QID PRN 02/04/15 02/08/19 Cholecalciferol [Vitamin D3 (25 1,000 unit PO W/SUPPER 02/04/15 02/08/19 Mcg = 1000 Iu)] Omeprazole [PriLOSEC] 20 mg PO AC-BRKFST 02/04/15 02/08/19 Potassium Chloride ER [K-Dur 10] 10 meq PO W/SUPPER 02/04/15 02/08/19 Bisoprol/Hydrochlorothiazide [Ziac 1 tab PO DAILY 09/07/16 02/08/19 5-6.25 MG] Atorvastatin [Lipitor] 10 mg PO W/SUPPER 02/10/18 02/08/19 HYDROcodone/APAP 10-325MG [Viola 1 tab PO BID PRN 02/10/18 02/08/19 10-325] Calcium Carbonate/Vitamin D3 1 tab PO DAILY 02/08/19 02/08/19 [Caltrate 600 Plus D3 Tablet] Cetirizine HCl [Zyrtec] 10 mg PO DAILY 02/08/19 02/08/19 Fluticasone Nasal [place] [Flonase 1 spray EA NOSTRIL DAILY PRN 02/08/19 02/08/19 Nasal [place]] Levothyroxine Sodium [Synthroid] 25 mcg PO DAILY 02/08/19 02/08/19 Propylene Glycol [Systane Complete] 1 drop BOTH EYES DAILY 02/08/19 02/08/19 Vitamin B Complex 1 cap PO DAILY 02/08/19 02/08/19 Allergies Allergy/AdvReac Type Severity Reaction Status Date / Time amoxicillin trihydrate Allergy Unknown Verified 02/08/19 12:40 [From Augmentin] Penicillins Allergy Rash/Hives Verified 02/08/19 12:40 potassium clavulanate Allergy Unknown Verified 02/08/19 12:40 [From Augmentin] Review of Systems ROS Other: All systems not noted in ROS Statement are negative. <Demetris Tinajero - Last Filed: 02/08/19 14:44> ROS Other: All systems not noted in ROS Statement are negative. <Delbert Giron - Last Filed: 02/08/19 17:12> ROS Statement: Those systems with pertinent positive or pertinent negative responses have been documented in the HPI. 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 History of Any Multi-Drug Resistant Organisms: None Reported Past Surgical History: Appendectomy, Breast Surgery, Cholecystectomy, Hysterectomy, Joint Replacement, Orthopedic Surgery, Tonsillectomy Additional Past Surgical History / Comment(s): aidan hip replacements, low back surgery, L hand tendon surgery, cystoscopies, kidney stone removal (lithotripsy/stents-all out now), L breast lumpectom, bilateral cataract surgery with lens implants, colonoscopies. Past Anesthesia/Blood Transfusion Reactions: Postoperative Nausea & Vomiting (PONV) Past Psychological History: Anxiety, Depression Smoking Status: Never smoker Past Alcohol Use History: None Reported Past Drug Use History: None Reported - Past Family History Mother Family Medical History: Cancer Additional Family Medical History / Comment(s): Mother had pancreatic cancer. She of this in her early 70s. Daughter(s) Family Medical History: Cancer Additional Family Medical History / Comment(s): Daughter had colon cancer. She is living. Son(s) Family Medical History: No Reported History Sister(s) Family Medical History: Thyroid Disorder Father Family Medical History: Myocardial Infarction ([place]) Additional Family Medical History / Comment(s): Father at the age of 52 yrs from a [place]. He was a smoker. <Demetris Tinajero - Last Filed: 02/08/19 14:44> General Exam Limitations: no limitations General appearance: alert, in no apparent distress Head exam: Present: atraumatic, normocephalic, normal inspection Neck exam: Present: normal inspection, full ROM. Absent: tenderness, meningismus, lymphadenopathy Respiratory exam: Present: normal lung sounds bilaterally. Absent: respiratory distress, wheezes, rales, rhonchi, stridor Cardiovascular Exam: Present: regular rate, normal rhythm, normal heart sounds. Absent: systolic murmur, diastolic murmur, rubs, gallop, clicks GI/Abdominal exam: Present: soft, normal bowel sounds. Absent: distended, tenderness, guarding, rebound, rigid Back exam: Present: CVA tenderness (L). Absent: CVA tenderness (R) Neurological exam: Present: alert, oriented X3, CN II-XII intact Skin exam: Present: warm, dry, intact, normal color. Absent: rash <Demetris Tinajero - Last Filed: 02/08/19 14:44> Course <Delbert Giron - Last Filed: 02/08/19 17:12> Vital Signs 02/08/19 02/08/19 02/08/19 12:03 13:20 14:44 Temperature 97.6 F 98.0 F Pulse Rate 61 61 60 Pulse Rate [ Right Pulse Oximetery] Respiratory 18 18 18 Rate Blood Pressure 127/83 122/74 115/68 Blood Pressure [Left Arm Sitting] O2 Sat by Pulse 96 94 L 94 L Oximetry 10/16/19 15:58 Temperature 98.5 F Pulse Rate Pulse Rate [ 62 Right Pulse Oximetery] Respiratory 18 Rate Blood Pressure Blood Pressure 142/67 [Left Arm Sitting] O2 Sat by Pulse 92 L Oximetry - Reevaluation(s) Reevaluation #1: 02/08/19 15:35 I did personally review the case and it did a [id number] evaluation did review the imaging as well as reports. Dr. Lambert was consulted and did come in to see the patient. 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 I did discuss the case with Dr. Lambert has requested by patient. Patient will be seen by Dr. Lambert will be admitted will be nothing by mouth at this time. (Demetris Tinajero) - Lab Data Lab Results 02/08/19 02/08/19 02/08/19 Range/Units 12:29 12:40 12:40 WBC 8.2 (3.8-10.6) k/uL RBC 4.62 (3.80-5.40) m/uL Hgb 14.2 (11.4-16.0) gm/dL Hct 42.9 (34.0-46.0) % MCV 92.7 (80.0-100.0) fL MCH 30.6 (25.0-35.0) pg MCHC 33.1 (31.0-37.0) g/dL RDW 12.5 (11.5-15.5) % Plt Count 182 (150-450) k/uL Neutrophils % 72 % Lymphocytes % 21 % Monocytes % 4 % Eosinophils % 2 % Basophils % 0 % Neutrophils # 5.9 (1.3-7.7) k/uL Lymphocytes # 1.7 (1.0-4.8) k/uL Monocytes # 0.3 (0-1.0) k/uL Eosinophils # 0.1 (0-0.7) k/uL Basophils # 0.0 (0-0.2) k/uL Sodium 140 (137-145) mmol/L Potassium 4.8 (3.5-5.1) mmol/L Chloride 106 (98-107) mmol/L Carbon Dioxide 23 (22-30) mmol/L Anion Gap 11 mmol/L BUN 18 H (7-17) mg/dL Creatinine 1.08 H (0.52-1.04) mg/dL Est GFR (CKD-EPI)AfAm 59 (>60 ml/min/1.73 sqM) Est GFR (CKD-EPI)NonAf 51 (>60 ml/min/1.73 sqM) Glucose 106 H (74-99) mg/dL Plasma Lactic Acid Breezy (0.7-2.0) mmol/L Calcium 9.7 (8.4-10.2) mg/dL Total Bilirubin 0.6 (0.2-1.3) mg/dL AST 35 (14-36) U/L ALT 33 (9-52) U/L Alkaline Phosphatase 65 (38-126) U/L Total Protein 7.3 (6.3-8.2) g/dL Albumin 4.3 (3.5-5.0) g/dL Lipase 209 (23-300) U/L Urine Color Dark Yellow Urine Appearance Turbid H (Clear) Urine pH 5.5 (5.0-8.0) Ur Specific [place] 1.019 (1.001-1.035) Urine Protein Trace H (Negative) Urine Glucose (UA) Negative (Negative) Urine Ketones Negative (Negative) Urine Blood Moderate H (Negative) Urine Nitrite Negative (Negative) Urine Bilirubin Negative (Negative) Urine Urobilinogen <2.0 (<2.0) mg/dL Ur Leukocyte Esterase Small H (Negative) Urine RBC >182 H (0-5) /hpf Urine WBC 6 H (0-5) /hpf Ur Squamous Epith Cells 2 (0-4) /hpf Hyaline Casts 17 H (0-2) /lpf Urine Mucus Occasional H (None) /hpf 02/08/ Range/Units 12:40 WBC (3.8-10.6) k/uL RBC (3.80-5.40) m/uL Hgb (11.4-16.0) gm/dL Hct (34.0-46.0) % MCV (80.0-100.0) fL MCH (25.0-35.0) pg MCHC (31.0-37.0) g/dL RDW (11.5-15.5) % Plt Count (150-450) k/uL Neutrophils % % Lymphocytes % % Monocytes % % Eosinophils % % Basophils % % Neutrophils # (1.3-7.7) k/uL Lymphocytes # (1.0-4.8) k/uL Monocytes # (0-1.0) k/uL Eosinophils # (0-0.7) k/uL Basophils # (0-0.2) k/uL Sodium (137-145) mmol/L Potassium (3.5-5.1) mmol/L Chloride (98-107) mmol/L Carbon Dioxide (22-30) mmol/L Anion Gap mmol/L BUN (7-17) mg/dL Creatinine (0.52-1.04) mg/dL Est GFR (CKD-EPI)AfAm (>60 ml/min/1.73 sqM) Est GFR (CKD-EPI)NonAf (>60 ml/min/1.73 sqM) Glucose (74-99) mg/dL Plasma Lactic Acid Breezy 1.2 (0.7-2.0) mmol/L Calcium (8.4-10.2) mg/dL Total Bilirubin (0.2-1.3) mg/dL AST (14-36) U/L ALT (9-52) U/L Alkaline Phosphatase (38-126) U/L Total Protein (6.3-8.2) g/dL Albumin (3.5-5.0) g/dL Lipase (23-300) U/L Urine Color Urine Appearance (Clear) Urine pH (5.0-8.0) Ur Specific [place] (1.001-1.035) Urine Protein (Negative) Urine Glucose (UA) (Negative) Urine Ketones (Negative) Urine Blood (Negative) Urine Nitrite (Negative) Urine Bilirubin (Negative) Urine Urobilinogen (<2.0) mg/dL Ur Leukocyte Esterase (Negative) Urine RBC (0-5) /hpf Urine WBC (0-5) /hpf Ur Squamous Epith Cells (0-4) /hpf Hyaline Casts (0-2) /lpf Urine Mucus (None) /hpf Disposition <Demetris Tinajero - Last Filed: 02/08/19 14:44> <Delbert Giron - Last Filed: 02/08/19 17:12> Clinical Impression: Cecal volvulus, Abdominal pain Disposition: ADMITTED IP TO THIS HOSP Condition: Fair
[2019-02-08 12:56] LABS: Appearance,Urine Turbid (Clear); Bilirubin,Urine Negative (Negative); Blood,Urine Moderate (Negative); Color,Urine Dark Yellow; Glucose,Urine (UA) Negative (Negative); Hyaline Casts,Urine 17 /lpf (0-2); Ketones,Urine Negative (Negative); Leukocyte Esterase,Urine Small (Negative); Mucus,Urine Occasional /hpf; Nitrite,Urine Negative (Negative); PH, Urine 5.5 (5.0-8.0); Protein,Urine Trace (Negative); RBC,Urine >182 /hpf (0-5); Specific Gravity,Urine 1.019 (1.001-1.035); Squamous Epithelial Cell,Urine 2 /hpf (0-4); Urobilinogen,Urine <2.0 mg/dL (<2.0)
[2019-02-08] MEDS ORDERED: MORPHINE SULFATE 2 MG/ML SYRINGE IVP ONE (13:12)
[2019-02-08 13:19] LABS: Basophils % (A) 0 %; Eosinophils # (A) 0.1 k/uL (0-0.7); Eosinophils % (A) 2 %; HCT 42.9 % (34.0-46.0); HGB 14.2 gm/dL (11.4-16.0); Lymphocytes # (A) 1.7 k/uL (1.0-4.8); Lymphocytes % (A) 21 %; MCH 30.6 pg (25.0-35.0); MCHC 33.1 g/dL (31.0-37.0); MCV 92.7 fL (80.0-100.0); Mean Platelet Volume 6.9; Monocytes # (A) 0.3 k/uL (0-1.0); Monocytes % (A) 4 %; Neutrophils # (A) 5.9 k/uL (1.3-7.7); Neutrophils % (A) 72 %; Platelet Count 182 k/uL (150-450); RBC 4.62 m/uL (3.80-5.40); RDW 12.5 % (11.5-15.5); WBC 8.2 k/uL (3.8-10.6)
[2019-02-08 13:28] LABS: Albumin 4.3 g/dL (3.5-5.0); Calcium 9.7 mg/dL (8.4-10.2); Potassium 4.8 mmol/L (3.5-5.1); Total Bilirubin 0.6 mg/dL (0.2-1.3); Total Protein 7.3 g/dL (6.3-8.2)
--- NOTE | 2019-02-08 13:42 | CT ---
EXAMINATION TYPE: CT abdomen pelvis wo con DATE OF EXAM: 02/08/2019 HISTORY: Flank pain CT DLP: 641.9 mGycm. Automated Exposure Control for Dose Reduction was Utilized. TECHNIQUE: CT scan of the abdomen and pelvis is performed without oral or IV contrast. COMPARISON: CT abdomen and pelvis February 04, 2015 FINDINGS: Within the limitations of a non-contrast study, the following observations are made. LUNG BASES: There is posterior bibasilar linear scarring and/or atelectasis. LIVER/GB: Cholecystectomy clips are noted. PANCREAS: No significant abnormality is seen. SPLEEN: No significant abnormality is seen. ADRENALS: No significant abnormality is seen. KIDNEYS: Bilateral renal calculi with approximately 10-15 scattered calculi bilaterally. Largest calc ulus is a 8 mm calculus lower pole of the right kidney axial image 72. No definitive ureteric calculi or hydronephrosis bilaterally. BOWEL: Surgical changes epigastric region just below the diaphragm likely from the Andres fundoplicat ion surgery redemonstrated. No suspicious small bowel dilatation. For distention of the mid to distal colon. There is abnormal positioning of the cecum with abnormal twisting, there is fecal filled dila tation occupying the anterior left mid abdomen. Cecum is dilated up to 9.5 cm. No pneumatosis or mese nteric air clearly seen. No pneumoperitoneum. Terminal ileum is decompressed coronal image 31. GENITAL ORGANS: No gross abnormality seen. LYMPH NODES: No greater than 1cm abdominal or pelvic lymph nodes are appreciated. OSSEOUS STRUCTURES: Metallic artifact from bilateral hip arthroplasty causes streak artifact limiting evaluation of pelvic structures. Slight levoconvex scoliotic curvature. Grade 1 retrolisthesis of L2 on L3 and L3 on L4 with moderate to advanced disc space narrowing at these levels and moderate anter ior spurring with endplate sclerosis right L3-L4 level also noted. OTHER: Scattered right-sided pelvic phleboliths. IMPRESSION: CT findings consistent with cecal volvulus as detailed above. Urgent surgical consultatio n advised. Case discussed with ER physician retail loan originator assistant via telephone at time of dictation.
[2019-02-08] MEDS ORDERED: NALOXONE 0.4 MG/ML 1 ML VIAL IV PRN ×2 (14:45→18:10)
[2019-02-08] MEDS ORDERED: HYDROmorphone 0.5 MG/0.5 ML SYRINGE IVP PRN (14:45)
[2019-02-08] MEDS ORDERED: HYDROmorphone 1 MG/ML 1 ML SYRINGE IVP PRN ×2 (14:45→17:54)
[2019-02-08] MEDS ORDERED: ONDANSETRON 4 MG/2 ML VIAL IVP PRN (14:45)
--- NOTE | 2019-02-08 15:19 | P.GSHP ---
History of Present Illness H&P Date: 02/08/19 Chief Complaint: back pain The patient is a 73 year old patient who began having back pain today. Initially she thought it was a kidney stone, but the pain became very severe so came in the ED. workup with a CT shows that she has a cecal volvulus. She has had some bloating, it became much worse today. No nausea or vomiting. She did have a normal colonoscopy about 2 years ago. No prior colon surgery. She has had open cholecystectomy. - Review of Systems All systems: negative Past Medical History Past Medical History: Cancer, GERD/Reflux, Hyperlipidemia, Hypertension, Osteoarthritis (OA), Pneumonia, Renal Disease, Thyroid Disorder Additional Past Medical History / Comment(s): L breast cancer with lumpectomy/radiation, UTI, urosepsis with hypotension/SVT with cardioversion per pt, kidney stones, chronic hypokalemia, hypothyroid, iron deficiency anemia, si nus problems, R upper arm varicosity, arthritis in R hand and neck, osteopenia. History of Any Multi-Drug Resistant Organisms: None Reported Past Surgical History: Appendectomy, Breast Surgery, Cholecystectomy, Hysterectomy, Joint Replacement, Orthopedic Surgery, Tonsillectomy Additional Past Surgical History / Comment(s): aidan hip replacements, low back surgery, L hand tendon surgery, cystoscopies, kidney stone removal ( lithotripsy/stents-all out now), L breast lumpectom, bilateral cataract surgery with lens implants, colonoscopies. Past Anesthesia/Blood Transfusion Reactions: Postoperative Nausea & Vomiting (PONV) Past Psychological History: Anxiety, Depression Smoking Status: Never smoker Past Alcohol Use History: None Reported Past Drug Use History: None Reported - Past Family History Mother Family Medical History: Cancer Additional Family Medical History / Comment(s): Mother had pancreatic cancer. She of this in her early 70s. Daughter(s) Family Medical History: Cancer Additional Family Medical History / Comment(s): Daughter had colon cancer. She is living. Son(s) Family Medical History: No Reported History Sister(s) Family Medical History: Thyroid Disorder Father Family Medical History: Myocardial Infarction ([place]) Additional Family Medical History / Comment(s): Father at the age of 52 yrs from a [place]. He was a smoker. Medications and Allergies Home Medications Medication Instructions Recorded Confirmed Type Diltiazem Cd [Cardizem CD] 180 mg PO W/SUPPER 09/17/13 02/08/19 History Venlafaxine HCl ER [Effexor XR] 150 mg PO W/SUPPER 09/17/13 02/08/19 History ALPRAZolam [Xanax] 0.25 mg PO QID PRN 02/04/15 02/08/19 History Cholecalciferol [Vitamin D3 (25 1,000 unit PO W/SUPPER 02/04/15 02/08/19 History Mcg = 1000 Iu)] Omeprazole [PriLOSEC] 20 mg PO AC-BRKFST 02/04/15 02/08/19 History Potassium Chloride ER [K-Dur 10] 10 meq PO W/SUPPER 02/04/15 02/08/19 History Bisoprol/Hydrochlorothiazide [Ziac 1 tab PO DAILY 09/07/16 02/08/19 History 5-6.25 MG] Atorvastatin [Lipitor] 10 mg PO W/SUPPER 02/10/18 02/08/19 History HYDROcodone/APAP 10-325MG [[place] 1 tab PO BID PRN 02/10/18 02/08/19 History 10-325] Calcium Carbonate/Vitamin D3 1 tab PO DAILY 02/08/19 02/08/19 History [Caltrate 600 Plus D3 Tablet] Cetirizine HCl [Zyrtec] 10 mg PO DAILY 02/08/19 02/08/19 History Fluticasone Nasal [place] [Flonase 1 spray EA NOSTRIL DAILY PRN 02/08/19 02/08/19 History Nasal [place]] Levothyroxine Sodium [Synthroid] 25 mcg PO DAILY 02/08/19 02/08/19 History Propylene Glycol [Systane Complete] 1 drop BOTH EYES DAILY 02/08/19 02/08/19 History Vitamin B Complex 1 cap PO DAILY 02/08/19 02/08/19 History Allergies Allergy/AdvReac Type Severity Reaction Status Date / Time amoxicillin trihydrate Allergy Unknown Verified 02/08/19 12:40 [From Augmentin] Penicillins Allergy Rash/Hives Verified 02/08/19 12:40 potassium clavulanate Allergy Unknown Verified 02/08/19 12:40 [From Augmentin] Surgical - Exam Osteopathic Statement: *. No significant issues noted on an osteopathic structural exam other than those noted in the History and Physical/Consult. Vital Signs Temp Pulse Resp BP Pulse Ox 97.6 F 61 18 127/83 96 02/08/19 12:03 02/08/19 12:03 02/08/19 12:03 02/08/19 12:03 02/08/19 12:03 - General well developed, well nourished, no distress - Eyes normal ocular movement - Neck trachea midline - Respiratory normal respiratory effort, clear to auscultation - Cardiovascular Rhythm: regular - Abdomen Abdomen: tender (Mild diffuse tenderness), no guarding, no rigid, no rebound, distended (Distended and tympanitic, primarily in the epigastric region) Results - Labs 02/08/19 12:40 02/08/19 12:40 Abnormal Lab Results - Last 24 Hours (Table) 02/08/19 02/08/19 Range/Units 12:29 12:40 BUN 18 H (7-17) mg/dL Creatinine 1.08 H (0.52-1.04) mg/dL Glucose 106 H (74-99) mg/dL Urine Appearance Turbid H (Clear) Urine Protein Trace H (Negative) Urine Blood Moderate H (Negative) Ur Leukocyte Esterase Small H (Negative) Urine RBC >182 H (0-5) /hpf Urine WBC 6 H (0-5) /hpf Hyaline Casts 17 H (0-2) /lpf Urine Mucus Occasional H (None) /hpf Diabetes panel 02/08/19 Range/Units 12:40 Sodium 140 (137-145) mmol/L Potassium 4.8 (3.5-5.1) mmol/L Chloride 106 (98-107) mmol/L Carbon Dioxide 23 (22-30) mmol/L BUN 18 H (7-17) mg/dL Creatinine 1.08 H (0.52-1.04) mg/dL Glucose 106 H (74-99) mg/dL Calcium 9.7 (8.4-10.2) mg/dL AST 35 (14-36) U/L ALT 33 (9-52) U/L Alkaline Phosphatase 65 (38-126) U/L Total Protein 7.3 (6.3-8.2) g/dL Albumin 4.3 (3.5-5.0) g/dL Calcium panel 02/08/19 Range/Units 12:40 Calcium 9.7 (8.4-10.2) mg/dL Albumin 4.3 (3.5-5.0) g/dL Pituitary panel 02/08/19 Range/Units 12:40 Sodium 140 (137-145) mmol/L Potassium 4.8 (3.5-5.1) mmol/L Chloride 106 (98-107) mmol/L Carbon Dioxide 23 (22-30) mmol/L BUN 18 H (7-17) mg/dL Creatinine 1.08 H (0.52-1.04) mg/dL Glucose 106 H (74-99) mg/dL Calcium 9.7 (8.4-10.2) mg/dL Adrenal panel 02/08/19 Range/Units 12:40 Sodium 140 (137-145) mmol/L Potassium 4.8 (3.5-5.1) mmol/L Chloride 106 (98-107) mmol/L Carbon Dioxide 23 (22-30) mmol/L BUN 18 H (7-17) mg/dL Creatinine 1.08 H (0.52-1.04) mg/dL Glucose 106 H (74-99) mg/dL Calcium 9.7 (8.4-10.2) mg/dL Total Bilirubin 0.6 (0.2-1.3) mg/dL AST 35 (14-36) U/L ALT 33 (9-52) U/L Alkaline Phosphatase 65 (38-126) U/L Total Protein 7.3 (6.3-8.2) g/dL Albumin 4.3 (3.5-5.0) g/dL - Imaging CT scan - abdomen: report reviewed, image reviewed Assessment and Plan (1) Nephrolithiasis Current Visit: Yes Status: Acute Code(s): N20.0 - CALCULUS OF KIDNEY SNOMED Code(s): 63721530 (2) History of breast cancer Current Visit: Yes Status: Acute Code(s): Z85.3 - PERSONAL HISTORY OF MALIGNANT NEOPLASM OF BREAST SNOMED Code(s): 526854976 (3) Hypothyroidism Current Visit: Yes Status: Acute Code(s): E03.9 - HYPOTHYROIDISM, UNSPECIFIED SNOMED Code(s): 96385794 (4) Hypertension Current Visit: Yes Status: Acute Code(s): I10 - ESSENTIAL (PRIMARY) HYPERTENSION SNOMED Code(s): 70062781 (5) GERD (gastroesophageal reflux disease) Current Visit: Yes Status: Acute Code(s): K21.9 - GASTRO-ESOPHAGEAL REFLUX DISEASE WITHOUT ESOPHAGITIS SNOMED Code(s): 229295182 (6) Cecal volvulus Current Visit: Yes Status: Acute Code(s): K56.2 - VOLVULUS SNOMED Code(s): 119506487 Plan: Explained cecal volvulus to the patient and her son. Explained the rationale for surgery to prevent perforation and recurrence. Recommended right hemicolectomy. The procedure, risks, complications were discussed. Questions were encouraged and answered. We'll give her prophylactic antibiotics along with DVT and ulcer prophylaxis. Further recommendations to follow.
[2019-02-08] MEDS ORDERED: CLINDAMYCIN 600 MG in DEXTROSE 5% IN WATER 50 ML IVPB STA ×2 (15:31)
[2019-02-08] MEDS ORDERED: metroNIDAZOLE-NS PMX 500 MG in SALINE 1 100ML.BAG IVPB STA (15:32)
[2019-02-08] MEDS ORDERED: IV FLUID CONTINUATION 975 ML IV ONE (16:00)
[2019-02-08] MEDS ORDERED: DEXAMETHASONE SOD PHOSPHATE 10 MG/ML 1 ML VIAL IV ONE (16:14)
[2019-02-08] MEDS ORDERED: FAMOTIDINE 20 MG/2 ML VIAL IV ONE (16:15)
[2019-02-08] MEDS ORDERED: SUCCINYLCHOLINE CHLORIDE 100 MG/5 ML SYR IV ONE (16:23)
[2019-02-08] MEDS ORDERED: PROPOFOL 10 MG/ML 20 ML VIAL IV ONE (16:23)
[2019-02-08] MEDS ORDERED: MIDAZOLAM 2 MG/2 ML VIAL ONE (16:23)
[2019-02-08] MEDS ORDERED: MEPERIDINE 50 MG/ML SYRINGE ONE (16:23)
[2019-02-08] MEDS ORDERED: NEOSTIGMINE 1 MG/ML 10 ML VIAL ONE (16:23)
[2019-02-08] MEDS ORDERED: ROCURONIUM BROMIDE 10 MG/ML 10 ML VIAL IV ONE (16:23)
[2019-02-08] MEDS ORDERED: GLYCOPYRROLATE 0.2 MG/ML 2 ML VIAL ONE (16:23)
[2019-02-08] MEDS ORDERED: fentaNYL (PF) 50 MCG/ML 2 ML AMP ONE (16:23)
[2019-02-08] MEDS ORDERED: LIDOCAINE 1% INJ 10MG/ML (20 ML MDV) ONE (16:23)
[2019-02-08] MEDS ORDERED: ePHEDrine SULFATE/0.9% NACL/PF 50 MG/5 ML SYRINGE IV ONE (16:23)
[2019-02-08] MEDS: CLINDAMYCIN 600 MG in DEXTROSE 5% IN WATER 50 ML IVPB SCH ×2 (16:37)
[2019-02-08] MEDS ORDERED: LACTATED RINGERS 1,000 ML IV ONE ×2 (17:13→19:44)
--- NOTE | 2019-02-08 18:02 | P.OP ---
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 Workup indicated a cecal volvulus Description of Procedure: The patient is taken to the operative suite where she is prepped and draped in the usual sterile manner under a general endotracheal anesthetic. The abdomen is entered through a midline incision. Small bleeding points are controlled with electrocautery. On entry into the abdomen there is a cherry of foul smelling air. The right colon is brought up through the incision. There is a small microperforation noted which is controlled with Rudy clamps. The right colon was then derotated to reduce the volvulus. The patient had adhesions in the right upper quadrant from previous cholecystectomy. The adhesions are taken down either with cautery or LigaSure. The hepatic flexure is mobilized with cautery. 2 viable ends of bowel were identified. A small opening is then made in the mesentery of the proximal transverse colon. A LAUREEN stapler was placed and fired. The mesentery was then divided with LigaSure. The ileocolic vessel was identified. It is clamped cut and tied with 0 Vicryl suture. The mesentery is then taken down to a section of the terminal ileum. A LAUREEN stapler was then placed and fired. The specimen was passed off. The antimesenteric borders of the small bowel and colon were approximated using 3-0 Vicryl. A opening was then made in each limb of the bowel and a LAUREEN stapler was placed and fired. The staple line appeared hemostatic. The defect was closed with 2 layers of 3-0 Vicryl. The mesenteric defect was closed with 3-0 Vicryl. The abdomen was then irrigated and aspirated. The bowel was allowed to lay in gentle loops. It was covered with the omentum. The fashion peritoneum were closed with 1 PDS. The skin was closed with paul. She tolerated the procedure without difficulty and was taken recovery room in satisfactory condition. According to or personnel, all counts WERE correct.
[2019-02-08] MEDS ORDERED: HYDROmorphone 1 MG/ML 1 ML SYRINGE IVP ONE ×2 (19:00→19:05)
[2019-02-08] MEDS: ROPIVACAINE 250 MG, fentaNYL (PF) 625 MCG in SODIUM CHLORIDE 0.9% 188 ML EPIDURAL PRN (19:26)
[2019-02-08] MEDS: KETOROLAC 30 MG/ML 1 ML VIAL IVP SCH ×2 (20:22→23:20)
[2019-02-08] MEDS: METOCLOPRAMIDE 5 MG/ML 2 ML VIAL IVP SCH ×2 (20:22→23:20)
[2019-02-08] MEDS: D5-0.45% NACL WITH KCL 20MEQ/L 1,000 ML IV SCH (20:43)
[2019-02-08 22:10] VITALS: BMI 27.4
[2019-02-08] MEDS: POTASSIUM CHLORIDE ER 10 MEQ TAB.ER.PRT PO SCH (23:08)
[2019-02-08] MEDS: metroNIDAZOLE-NS PMX 500 MG in SALINE 1 100ML.BAG IVPB SCH (23:19)
[2019-02-08] MEDS: ATORVASTATIN 10 MG TAB PO SCH (23:20)
[2019-02-08] MEDS: VENLAFAXINE HCL ER 150 MG CAP PO SCH (23:20)
[2019-02-08] MEDS: ALPRAZolam 0.25 MG TAB PO PRN (23:20)
[2019-02-08] MEDS: DILTIAZEM CD 180 MG CAP.ER.24H PO SCH (23:20)
[2019-02-09] MEDS: D5-0.45% NACL WITH KCL 20MEQ/L 1,000 ML IV SCH ×3 (03:40→17:44)
[2019-02-09] MEDS: KETOROLAC 30 MG/ML 1 ML VIAL IVP SCH ×3 (05:05→17:45)
[2019-02-09] MEDS: METOCLOPRAMIDE 5 MG/ML 2 ML VIAL IVP SCH ×3 (05:05→17:45)
[2019-02-09] MEDS: CLINDAMYCIN 600 MG in DEXTROSE 5% IN WATER 50 ML IVPB SCH ×4 (05:06→10:15)
[2019-02-09] MEDS: LEVOTHYROXINE 25 MCG TAB PO SCH (05:06)
[2019-02-09] MEDS ORDERED: PANTOPRAZOLE 40 MG TABLET PO SCH (07:30)
[2019-02-09 07:54] LABS: Basophils % (A) 0 %; Eosinophils % (A) 0 %; HGB 11.5 gm/dL (11.4-16.0); Lymphocytes % (A) 6 %; MCH 30.8 pg (25.0-35.0); MCV 93.4 fL (80.0-100.0); Mean Platelet Volume 7.2; Monocytes # (A) 0.5 k/uL (0-1.0); Monocytes % (A) 4 %; Neutrophils # (A) 13.7 k/uL (1.3-7.7); Neutrophils % (A) 89 %; Platelet Count 192 k/uL (150-450); RBC 3.74 m/uL (3.80-5.40); RDW 12.5 % (11.5-15.5); WBC 15.3 k/uL (3.8-10.6)
[2019-02-09] MEDS: BISOPROLOL-HCTZ 5-6.25 MG 1 EACH TAB PO SCH (08:00)
[2019-02-09] MEDS: PANTOPRAZOLE 40 MG/10 ML VIAL IV SCH (08:00)
[2019-02-09] MEDS: LORATADINE 10 MG TAB PO SCH (08:00)
[2019-02-09] MEDS: ARTIFICIAL TEARS-HYPROMELLOSE DROPS 15 ML BTL BOTH EYES SCH (08:00)
[2019-02-09] MEDS: metroNIDAZOLE-NS PMX 500 MG in SALINE 1 100ML.BAG IVPB SCH ×2 (08:00→17:44)
[2019-02-09 08:02] LABS: ALT 34 U/L (9-52); AST 30 U/L (14-36); African American GFR (CKD) >90 (>60 ml/min/1.73 sqM); Albumin 3.2 g/dL (3.5-5.0); Alkaline Phosphatase 40 U/L (38-126); Anion Gap 9 mmol/L; Blood Urea Nitrogen 14 mg/dL (7-17); Calcium 8.3 mg/dL (8.4-10.2); Carbon Dioxide 22 mmol/L (22-30); Chloride 106 mmol/L (98-107); Glucose 155 mg/dL (74-99); Potassium 4.5 mmol/L (3.5-5.1); Sodium 137 mmol/L (137-145); Total Bilirubin 0.7 mg/dL (0.2-1.3); Total Protein 5.6 g/dL (6.3-8.2)
[2019-02-09] MEDS ORDERED: FLUTICASONE 50MCG/SPRAY NASAL 16GM EA NOSTRIL PRN (09:00)
--- NOTE | 2019-02-09 09:00 | P.PN ---
Subjective Progress Note Date: 02/09/19 Principal diagnosis: cecal volvulus The patient is postop day 1 from a right hemicolectomy cecal volvulus. She is doing well. Pain is well-controlled. No nausea or vomiting. No chest pain or shortness of breath. Objective - Vital Signs Vital signs: Vital Signs Temp 99.0 F 02/09/19 08:25 Pulse 64 02/09/19 08:25 Resp 16 02/09/19 08:25 BP 93/57 02/09/19 08:25 Pulse Ox 87 L 02/09/19 08:25 Intake & Output 02/08/19 02/09/19 02/09/19 18:59 06:59 18:59 Intake Total 1729 750 Output Total 350 1400 Balance 1379 -650 Weight 74.843 kg Intake: IV 1729 750 Output: Urine 200 1400 Estimated Blood Loss 150 Other: Voiding Method Indwelling Catheter - Constitutional General appearance: Present: cooperative, no acute distress - Respiratory Respiratory: bilateral: CTA - Cardiovascular Rhythm: regular - Gastrointestinal General gastrointestinal: Present: decreased bowel sounds, soft Localized gastrointestinal: surgical scar: diffuse (dressing is intact with a small amount of dried blood on the inferior aspect.) - Labs CBC & Chem 7: 02/09/19 07:19 02/09/19 07:19 Labs: Abnormal Lab Results - Last 24 Hours (Table) 02/08/19 02/08/19 02/09/19 Range/Units 12:29 12:40 07:19 WBC 15.3 H (3.8-10.6) k/uL RBC 3.74 L (3.80-5.40) m/uL Neutrophils # 13.7 H (1.3-7.7) k/uL BUN 18 H (7-17) mg/dL Creatinine 1.08 H (0.52-1.04) mg/dL Glucose 106 H (74-99) mg/dL Calcium (8.4-10.2) mg/dL Total Protein (6.3-8.2) g/dL Albumin (3.5-5.0) g/dL Urine Appearance Turbid H (Clear) Urine Protein Trace H (Negative) Urine Blood Moderate H (Negative) Ur Leukocyte Esterase Small H (Negative) Urine RBC >182 H (0-5) /hpf Urine WBC 6 H (0-5) /hpf Hyaline Casts 17 H (0-2) /lpf Urine Mucus Occasional H (None) /hpf 02/09/19 Range/Units 07:19 WBC (3.8-10.6) k/uL RBC (3.80-5.40) m/uL Neutrophils # (1.3-7.7) k/uL BUN (7-17) mg/dL Creatinine (0.52-1.04) mg/dL Glucose 155 H (74-99) mg/dL Calcium 8.3 L (8.4-10.2) mg/dL Total Protein 5.6 L (6.3-8.2) g/dL Albumin 3.2 L (3.5-5.0) g/dL Urine Appearance (Clear) Urine Protein (Negative) Urine Blood (Negative) Ur Leukocyte Esterase (Negative) Urine RBC (0-5) /hpf Urine WBC (0-5) /hpf Hyaline Casts (0-2) /lpf Urine Mucus (None) /hpf Assessment and Plan (1) Cecal volvulus Current Visit: Yes Status: Acute Code(s): K56.2 - VOLVULUS SNOMED Code(s): 310345433 (2) Nephrolithiasis Current Visit: Yes Status: Chronic Code(s): N20.0 - CALCULUS OF KIDNEY SNOMED Code(s): 65394708 (3) History of breast cancer Current Visit: Yes Status: Chronic Code(s): Z85.3 - PERSONAL HISTORY OF M ALIGNANT NEOPLASM OF BREAST SNOMED Code(s): 066810954 (4) Hypothyroidism Current Visit: Yes Status: Chronic Code(s): E03.9 - HYPOTHYROIDISM, UNSPECIFIED SNOMED Code(s): 32235421 (5) Hypertension Current Visit: Yes Status: Chronic Code(s): I10 - ESSENTIAL (PRIMARY) HYPERTENSION SNOMED Code(s): 66041336 (6) GERD (gastroesophageal reflux disease) Current Visit: Yes Status: Chronic Code(s): K21.9 - GASTRO-ESOPHAGEAL REFLUX DISEASE WITHOUT ESOPHAGITIS SNOMED Code(s): 932988616 Plan: the patient is doing well. The epidural will be continued. Encourage incentive spirometry. Encourage activity.
--- NOTE | 2019-02-09 15:08 | P.CONS ---
History of Present Illness - Reason for Consult Consult date: 02/09/19 Medical management - History of Present Illness This is a 73-year-old female patient of Dr. Hughes with a previous medical history significant for hypertension and hypertensive cardiovascular disease with left ventricular hypertrophy, history of hyperlipidemia, history of anemia iron deficiency, history of breast cancer back in 1996 status post lumpectomy with radiation. Patient presented to [facility] emergency center with complaints of left flank pain and was recently treated for urinary tract infection and finished a course of Bactrim. Pain is in the left flank area and she does have history of kidney stones. She has had some nausea without vomiting and intermittent constipation. She denies having any dysuria, hematuria, fever or chills. 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 Dr. Lambert was contacted and patient was admitted under her service and patient is status post right hemicolectomy. 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 Patient is seen on the first postoperative day. Her pain is fairly well controlled wit epidural. She denies having any nausea or vomiting. No chest pain or shortness of breath. She denies passing gas, no bowel movement. Patient states she did not sleep last night. She has been afebrile, heart rate 64, blood pressure 93/57, pulse ox 87% on room air. WBC 15.3, hemoglobin 11.5, electrolytes within normal limits as well as liver function test. BUN 14 creatinine 0.75. Urinalysis turbid, blood moderate, nitrate negative, leukoesterase small, RBCs greater than 182, WBC 6. Review of Systems Constitutional: Reports daytime sleepiness, Denies chills, Denies fatigue, Denies fever, Denies lethargy, Denies malaise, Denies poor appetite, Denies weakness Ears, nose, mouth and throat: Denies dysphagia, Denies nasal congestion, Denies nasal discharge, Denies vertigo Cardiovascular: Denies chest pain, Denies decreased exercise tolerance, Denies dyspnea on exertion, Denies edema, Denies leg edema, Denies lightheadedness, Denies palpitations, Denies shortness of breath, Denies syncope Respiratory: Denies cough, Denies cough with sputum, Denies dyspnea, Denies exce ssive sputum, Denies hemoptysis, Denies home oxygen, Denies respiratory infections, Denies wheezing Gastrointestinal: Reports as per HPI, Reports abdominal pain, Reports bloating, Reports constipation, Denies diarrhea, Denies nausea, Denies vomiting Genitourinary: Denies dysuria, Denies hematuria, Denies urgency, Denies urinary frequency Musculoskeletal: Denies frequent falls, Denies gait dysfunction, Denies muscle weakness, Denies myalgias Integumentary: Reports wounds, Denies pruritus, Denies rash Neurological: Denies change in mentation, Denies confusion, Denies gait dysfunction, Denies numbness, Denies seizures, Denies weakness Psychiatric: Denies anxiety, Denies depression Endocrine: Denies fatigue, Denies weight change Past Medical History Past Medical History: Cancer, GERD/Reflux, Hyperlipidemia, Hypertension, Osteoarthritis (OA), Pneumonia, Renal Disease, Thyroid Disorder Additional Past Medical History / Comment(s): L breast cancer with lumpectomy/radiation, UTI, urosepsis with hypotension/SVT with cardioversion per pt, kidney stones, chronic hypokalemia, hypothyroid, iron deficiency anemia, sinus problems, R upper arm varicosity, arthritis in R hand and neck, osteopenia. History of Any Multi-Drug Resistant Organisms: None Reported Past Surgical History: Appendectomy, Breast Surgery, Cholecystectomy, Hysterectomy, Joint Replacement, Orthopedic Surgery, Tonsillectomy Additional Past Surgical History / Comment(s): open cholecystectomy many years ago, aidan hip replacements, low back surgery, L hand tendon surgery, cystoscopies, kidney stone removal (lithotripsy/stents-all out now), L breast lumpectom, bilateral cataract surgery with lens implants, colonoscopies, Migel fundoplication. Past Anesthesia/Blood Transfusion Reactions: Postoperative Nausea & Vomiting (PONV) Past Psychological History: Anxiety, Depression Smoking Status: Never smoker Past Alcohol Use History: None Reported Additional Past Alcohol Use History / Comment(s): No marijuana, illicit drug use, alcohol use. Past Drug Use History: None Reported - Past Family History Mother Family Medical History: Cancer Additional Family Medical History / Comment(s): Mother had pancreatic cancer. She of this in her early 70s. Daughter(s) Family Medical History: Cancer Additional Family Medical History / Comment(s): Patient has 2 daughters and one of her daughters is BRCA gene positive. Daughter had colon cancer. Son(s) Family Medical History: No Reported History Additional Family Medical History / Comment(s): Patient has one son with no major medical problems. Sister(s) Family Medical History: Thyroid Disorder Additional Family Medical History / Comment(s): Patient has 2 sisters with thyroid disease and one with breast cancer. Father Family Medical History: Myocardial Infarction (DC) Additional Family Medical History / Comment(s): Father at the age of 52 yrs from a DC. He was a smoker. Medications and Allergies Home Medications Medication Instructions Recorded Confirmed Type Diltiazem Cd [Cardizem CD] 180 mg PO W/SUPPER 09/17/13 02/08/19 History Venlafaxine HCl ER [Effexor XR] 150 mg PO W/SUPPER 09/17/13 02/08/19 History ALPRAZolam [Xanax] 0.25 mg PO QID PRN 02/04/15 02/08/19 History Cholecalciferol [Vitamin D3 (25 1,000 unit PO W/SUPPER 02/04/15 02/08/19 History Mcg = 1000 Iu)] Omeprazole [PriLOSEC] 20 mg PO AC-BRKFST 02/04/15 02/08/19 History Potassium Chloride ER [K-Dur 10] 10 meq PO W/SUPPER 02/04/15 02/08/19 History Bisoprol/Hydrochlorothiazide [Ziac 1 tab PO DAILY 09/07/16 02/08/19 History 5-6.25 MG] Atorvastatin [Lipitor] 10 mg PO W/SUPPER 02/10/18 02/08/19 History HYDROcodone/APAP 10-325MG [[place] 1 tab PO BID PRN 02/10/18 02/08/19 History 10-325] Calcium Carbonate/Vitamin D3 1 tab PO DAILY 02/08/19 02/08/19 History [Caltrate 600 Plus D3 Tablet] Cetirizine HCl [Zyrtec] 10 mg PO DAILY 02/08/19 02/08/19 History Fluticasone Nasal [place] [Flonase 1 spray EA NOSTRIL DAILY PRN 02/08/19 02/08/19 History Nasal [place]] Levothyroxine Sodium [Synthroid] 25 mcg PO DAILY 02/08/19 02/08/19 History Propylene Glycol [Systane Complete] 1 drop BOTH EYES DAILY 02/08/19 02/08/19 History Vitamin B Complex 1 cap PO DAILY 02/08/19 02/08/19 History Allergies Allergy/AdvReac Type Severity Reaction Status Date / Time amoxicillin trihydrate Allergy Unknown Verified 02/08/19 12:40 [From Augmentin] Penicillins Allergy Rash/Hives Verified 02/08/19 12:40 potassium clavulanate Allergy Unknown Verified 02/08/19 12:40 [From Augmentin] Physical Exam Vitals: Vital Signs Temp Pulse Pulse Resp BP BP Pulse Ox 02/09/19 08:25 99.0 F 64 16 93/57 87 L 02/09/19 02:36 97.9 F 87 17 98/57 93 L 02/08/19 21:45 68 116/66 96 02/08/19 21:30 75 114/66 02/08/19 21:15 66 110/72 93 L 02/08/19 21:00 64 108/62 98 02/08/19 20:45 64 109/65 96 02/08/19 20:30 68 105/63 97 02/08/19 20:15 98.2 F 95 20 101/66 95 02/08/19 19:49 65 16 124/69 93 L 02/08/19 19:37 62 16 132/75 93 L 02/08/19 19:22 63 16 130/76 97 02/08/19 19:07 59 L 16 132/75 96 02/08/19 18:52 64 16 141/73 97 02/08/19 18:37 68 16 131/68 97 02/08/19 18:22 71 16 144/70 93 L 02/08/19 18:07 96.9 F L 83 18 132/77 92 L 02/08/19 15:58 98.5 F 62 18 142/67 92 L 02/08/19 14:44 98.0 F 60 18 115/68 94 L 02/08/19 13:20 61 18 122/74 94 L 02/08/19 12:03 97.6 F 61 18 127/83 96 Intake and Output 02/08/19 02/09/19 02/09/19 22:59 06:59 14:59 Intake Total 2479 Output Total 1200 550 Balance 1279 -550 Intake: IV 2479 Output: Urine 1050 550 Estimated Blood Loss 150 Other: Voiding Method Indwelling Catheter Indwelling Catheter - Constitutional General appearance: no acute distress - EENT Eyes: anicteric sclerae, EOMI, PERRLA, no ptosis, no scleral icterus, normal appearance ENT: no NA/AT (left-sided facial droop), normal oropharynx, no pharyngeal erythema, no thrush, no tonsillar exudates Ears: bilateral: normal - Neck Neck: no lymphadenopathy, normal ROM, no rigidity, no stridor, no thyromegaly Carotids: bilateral: upstroke normal Thyroid: bilateral: normal size - Respiratory Respiratory: bilateral: diminished, negative: dullness, rales, rhonchi, wheezing, prolonged expiration, prolonged inspiration - Cardiovascular Rhythm: regular Heart sounds: normal: S1, S2 Abnormal Heart Sounds: no rub, no S3 Gallop, no S4 Gallop, no click - Gastrointestinal General gastrointestinal: Decreased bowel sounds, soft, no splenomegaly, mild generalized tenderness, no umbilical hernia, no ventral hernia Abdominal binder in place, dressing in place with very small area of breakdown or drainage - Integumentary Integumentary: normal, normal turgor - Neurologic Neurologic: CNII-XII intact, focal deficits - Musculoskeletal Musculoskeletal: gait normal, strength equal bilaterally - Psychiatric Psychiatric: A&O x's 3, appropriate affect, intact judgment & insight Results CBC & Chem 7: 02/09/19 07:19 02/09/19 07:19 Labs: Abnormal Lab Results - Last 24 Hours (Table) 02/08/19 02/08/19 02/09/19 Range/Units 12:29 12:40 07:19 WBC 15.3 H (3.8-10.6) k/uL RBC 3.74 L (3.80-5.40) m/uL Neutrophils # 13.7 H (1.3-7.7) k/uL BUN 18 H (7-17) mg/dL Creatinine 1.08 H (0.52-1.04) mg/dL Glucose 106 H (74-99) mg/dL Calcium (8.4-10.2) mg/dL Total Protein (6.3-8.2) g/dL Albumin (3.5-5.0) g/dL Urine Appearance Turbid H (Clear) Urine Protein Trace H (Negative) Urine Blood Moderate H (Negative) Ur Leukocyte Esterase Small H (Negative) Urine RBC >182 H (0-5) /hpf Urine WBC 6 H (0-5) /hpf Hyaline Casts 17 H (0-2) /lpf Urine Mucus Occasional H (None) /hpf 02/09/19 Range/Units 07:19 WBC (3.8-10.6) k/uL RBC (3.80-5.40) m/uL Neutrophils # (1.3-7.7) k/uL BUN (7-17) mg/dL Creatinine (0.52-1.04) mg/dL Glucose 155 H (74-99) mg/dL Calcium 8.3 L (8.4-10.2) mg/dL Total Protein 5.6 L (6.3-8.2) g/dL Albumin 3.2 L (3.5-5.0) g/dL Urine Appearance (Clear) Urine Protein (Negative) Urine Blood (Negative) Ur Leukocyte Esterase (Negative) Urine RBC (0-5) /hpf Urine WBC (0-5) /hpf Hyaline Casts (0-2) /lpf Urine Mucus (None) /hpf Assessment and Plan Plan: 1. 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 Continue incentive spirometry to reduce incidence of atelectasis and hospital-acquired pneumonia, current pain management, clear liquid diet 2. Hypertension and hypertensive cardiovascular disease. Ziac 5/6.25 mg orally once every day on hold due to hypotension, continue Cardizem CD 180 mg orally once every day. 3. Hyperlipidemia. Atorvastatin 10 mg daily 4. History of iron deficiency anemia resolved. 5. History of breast cancer status post left lumpectomy with radiation therapy. 6. Generalized anxiety disorder and recurrent depression. Continue Effexor XR 150 mg orally once every day as well as Xanax as needed. 7. Hypothyroidism. Continue Synthroid 25 g orally once every day. 8. GERD. Continue Protonix. 9. DVT prophylaxis. SCDs LUCI hose. 10. GI prophylaxis. Continue same treatment. 11. Admitted to inpatient. Estimated length of stay 2 midnights. 12. Patient is full code. Discharge plan: Return home most likely. Physical therapy evaluation in place. Impression and plan of care have been directed as dictated by the signing physician. Elayne Manning nurse practitioner acting as scribe for signing physician.
[2019-02-09] MEDS: DILTIAZEM CD 180 MG CAP.ER.24H PO SCH (17:37)
[2019-02-09] MEDS: diphenhydrAMINE 50 MG/ML 1 ML VIAL IVP PRN (17:45)
[2019-02-09] MEDS: POTASSIUM CHLORIDE ER 10 MEQ TAB.ER.PRT PO SCH (17:45)
[2019-02-09] MEDS: ATORVASTATIN 10 MG TAB PO SCH (17:46)
[2019-02-09] MEDS: VENLAFAXINE HCL ER 150 MG CAP PO SCH (17:46)
[2019-02-09] MEDS ORDERED: LEVOFLOXACIN 500MG-D5W PMX 500 MG in DEXTROSE/WATER 1 100ML.BAG IVPB SCH (18:00)
[2019-02-09] MEDS: MELATONIN 5 MG TABLET PO SCH (19:57)
[2019-02-09] MEDS: ROPIVACAINE 250 MG, fentaNYL (PF) 625 MCG in SODIUM CHLORIDE 0.9% 188 ML EPIDURAL PRN (21:25)
[2019-02-09] MEDS: ALPRAZolam 0.25 MG TAB PO PRN (22:47)
[2019-02-10] MEDS: KETOROLAC 30 MG/ML 1 ML VIAL IVP SCH ×3 (00:30→17:19)
[2019-02-10] MEDS: METOCLOPRAMIDE 5 MG/ML 2 ML VIAL IVP SCH (00:31)
[2019-02-10] MEDS: diphenhydrAMINE 50 MG/ML 1 ML VIAL IVP PRN (00:31)
[2019-02-10] MEDS: LEVOTHYROXINE 25 MCG TAB PO SCH (05:42)
--- NOTE | 2019-02-10 07:01 | P.PN ---
Progress Note - Text Postop day 2 from exploratory laparotomy, epidural catheter inserted for postop pain control. Epidural solution: Ropivacaine 0.1% with fentanyl 2mcg/ml running at 8 mL an hour. Patient pain is well controlled with visual analog score of 4-5/10. Patient is little discomfort. No nausea vomiting, itching, weakness or numbness in the legs or headache reported by the patient. Plan: To increase the epidural infusion rate to 10cc/hr.
[2019-02-10] MEDS: PANTOPRAZOLE 40 MG/10 ML VIAL IV SCH (09:01)
[2019-02-10] MEDS: ARTIFICIAL TEARS-HYPROMELLOSE DROPS 15 ML BTL BOTH EYES SCH (09:01)
[2019-02-10] MEDS: BISOPROLOL-HCTZ 5-6.25 MG 1 EACH TAB PO SCH (09:01)
[2019-02-10] MEDS: LORATADINE 10 MG TAB PO SCH (09:01)
--- NOTE | 2019-02-10 11:13 | P.PN ---
Subjective Progress Note Date: 02/10/19 Patient seen and examined at bedside. No acute events. States she has had 3 liquid bowel movements. Denies any nausea or vomiting. Pain well-controlled with epidural. Hartman in place. Objective - Vital Signs Vital signs: Vital Signs Temp 98.1 F 02/10/19 07:00 Pulse 79 02/10/19 07:00 Resp 16 02/10/19 07:00 BP 132/83 02/10/19 07:00 Pulse Ox 92 L 02/10/19 07:00 Intake & Output 02/09/19 02/10/19 02/10/19 18:59 06:59 18:59 Intake Total 136 1600 Output Total 1100 Balance 136 500 Intake: Intake, IV Titration 136 1600 Amount D5-0.45% NaCl with KCl 1600 20Meq/l 1,000 ml @ 100 mls/hr IV .Q10H REYES Rx#: [id number] Ropivacaine 250 mg 136 fentaNYL (PF) 625 mcg In Sodium Chloride 0.9% 188 ml @ Per Protocol EPIDURAL .Q0M PRN Rx#: [id number] Output: Urine 1100 Other: Voiding Method Indwelling Catheter Indwelling Catheter # Voids 3 # Emeses 0 - Constitutional General appearance: Present: cooperative, no acute distress - Respiratory Details: No difficulty with respiration - Gastrointestinal Gastrointestinal Comment(s): Soft, appropriate tenderness, nondistended, no rebound, no guarding, incision site clean, dry and intact with paul in place. - Psychiatric Psychiatric: Present: A&O x's 3 - Labs CBC & Chem 7: 02/09/19 07:19 02/09/19 07:19 Assessment and Plan (1) Cecal volvulus Narrative/Plan: 73-year-old female postoperative day #2 after right hemicolectomy secondary to cecal volvulus - Patient has started having bowel function, we'll advance to full liquid diet - DVT prophylaxis - Continue epidural and continue Hartman catheter while epidural is in place - Medical recommendations appreciated - Progressing slowly - CBC in AM Current Visit: Yes Status: Acute Code(s): K56.2 - VOLVULUS SNOMED Code(s): 510146264
[2019-02-10] MEDS ORDERED: diphenhydrAMINE 25 MG CAP PO PRN (12:20)
--- NOTE | 2019-02-10 15:18 | P.PN ---
Subjective Progress Note Date: 02/10/19 This is a 73-year-old female patient of Dr. Hughes with a previous medical history significant for hypertension and hypertensive cardiovascular disease with left ventricular hypertrophy, history of hyperlipidemia, history of anemia iron deficiency, history of breast cancer back in 1996 status post lumpectomy with radiation. Patient presented to [facility] emergency center with complaints of left flank pain and was recently treated for urinary tract infection and finished a course of Bactrim. Pain is in the left flank area and she does have history of kidney stones. She has had some nausea without vomiting and intermittent constipation. She denies having any dysuria, hematuria, fever or chills. 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 Dr. Lambert was contacted and patient was admitted under her service and patient is status post right hemicolectomy. 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 Patient is seen on the first postoperative day. Her pain is fairly well controlled wit epidural. She denies having any nausea or vomiting. No chest pain or shortness of breath. She denies passing gas, no bowel movement. Patient states she did not sleep last night. She has been afebrile, heart rate 64, blood pressure 93/57, pulse ox 87% on room air. WBC 15.3, hemoglobin 11.5, electrolytes within normal limits as well as liver function test. BUN 14 creatinine 0.75. Urinalysis turbid, blood moderate, nitrate negative, leukoesterase small, RBCs greater than 182, WBC 6. 02/10: Patient has been afebrile, pulse 79 blood pressure 132/83, pulse ox 92% on room air. Patient is currently on a clear liquid diet and tolerating. No nausea or vomiting. Patient has had 3 bowel movements. She feels her abdomen is a little bloated. Epidural catheter remains in place for pain control and this was increased by anesthesia this morning to 10 mL per hour. She is using incentive spirometry at 1500 mL. Patient was seen this morning by Dr. Mccarthy covering for Dr. Lambert and diet has been advanced to full liquids. Objective - Vital Signs Vital signs: Vital Signs Temp 98.1 F 02/10/19 07:00 Pulse 79 02/10/19 07:00 Resp 16 02/10/19 07:00 BP 132/83 02/10/19 07:00 Pulse Ox 92 L 02/10/19 07:00 Intake & Output 02/09/19 02/10/19 02/10/19 18:59 06:59 18:59 Intake Total 136 1600 Output Total 1100 Balance 136 500 Intake: Intake, IV Titration 136 1600 Amount D5-0.45% NaCl with KCl 1600 20Meq/l 1,000 ml @ 100 mls/hr IV .Q10H REYES Rx#: [id number] Ropivacaine 250 mg 136 fentaNYL (PF) 625 mcg In Sodium Chloride 0.9% 188 ml @ Per Protocol EPIDURAL .Q0M PRN Rx#: [id number] Output: Urine 1100 Other: Voiding Method Indwelling Catheter Indwelling Catheter # Voids 3 # Emeses 0 - Exam Review of Systems Constitutional: Reports daytime sleepiness, Denies chills, Denies fatigue, Denies fever, Denies lethargy, Denies malaise, Denies poor appetite, Denies weakness Ears, nose, mouth and throat: Denies dysphagia, Denies nasal congestion, Denies nasal discharge, Denies vertigo Cardiovascular: Denies chest pain, Denies decreased exercise tolerance, Denies dyspnea on exertion, Denies edema, Denies leg edema, Denies lightheadedness, Denies palpitations, Denies shortness of breath, Denies syncope Respiratory: Denies cough, Denies cough with sputum, Denies dyspnea, Denies excessive sputum, Denies hemoptysis, Denies home oxygen, Denies respiratory infections, Denies wheezing Gastrointestinal: R Reports abdominal pain, Reports bloating, denies constipation, Denies diarrhea, Denies nausea, Denies vomiting Genitourinary: Denies dysuria, Denies hematuria, Denies urgency, Denies urinary frequency Musculoskeletal: Denies frequent falls, Denies gait dysfunction, Denies muscle weakness, Denies myalgias Integumentary: Reports wounds, Denies pruritus, Denies rash Neurological: Denies change in mentation, Denies confusion, Denies gait dysfunction, Denies numbness, Denies seizures, Denies weakness Psychiatric: Denies anxiety, Denies depression Endocrine: Denies fatigue, Denies weight change - Constitutional General appearance: no acute distress - EENT Eyes: anicteric sclerae, EOMI, PERRLA, no ptosis, no scleral icterus, normal appearance ENT: no NA/AT (left-sided facial droop), normal oropharynx, no pharyngeal erythema, no thrush, no tonsillar exudates Ears: bilateral: normal - Neck Neck: no lymphadenopathy, normal ROM, no rigidity, no stridor, no thyromegaly Carotids: bilateral: upstroke normal Thyroid: bilateral: normal size - Respiratory Respiratory: bilateral: diminished, negative: dullness, rales, rhonchi, wheezing, prolonged expiration, prolonged inspiration - Cardiovascular Rhythm: regular Heart sounds: normal: S1, S2 Abnormal Heart Sounds: no rub, no S3 Gallop, no S4 Gallop, no click - Gastrointestinal General gastrointestinal: Normal bowel sounds, soft, no splenomegaly, mild generalized tenderness, no umbilical hernia, no ventral hernia Abdominal binder in place, dressing in place - Integumentary Integumentary: normal, normal turgor - Neurologic Neurologic: CNII-XII intact, focal deficits - Musculoskeletal Musculoskeletal: gait normal, strength equal bilaterally - Psychiatric Psychiatric: A&O x's 3, appropriate affect, intact judgment & insight - Labs CBC & Chem 7: 02/09/19 07:19 02/09/19 07:19 Assessment and Plan Plan: 1. 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 Continue incentive spirometry to reduce incidence of atelectasis and hospital-acquired pneumonia, current pain management, clear liquid diet advance to full liquid today 2. Hypertension and hypertensive cardiovascular disease. Ziac 5/6.25 mg orally once every day has been resumed with parameters, continue Cardizem CD 180 mg orally once every day. 3. Hyperlipidemia. Atorvastatin 10 mg daily 4. History of iron deficiency anemia resolved. 5. History of breast cancer status post left lumpectomy with radiation therapy. 6. Generalized anxiety disorder and recurrent depression. Continue Effexor XR 150 mg orally once every day as well as Xanax as needed. 7. Hypothyroidism. Continue Synthroid 25 g orally once every day. 8. GERD. Continue Protonix. 9. DVT prophylaxis. SCDs LUCI hose. 10. GI prophylaxis. Continue same treatment. Patient is full code. Discharge plan: Return home most likely on Wednesday. Physical therapy evaluation in place. Impression and plan of care have been directed as dictated by the signing physician. Elayne Manning nurse practitioner acting as scribe for signing p lani.
[2019-02-10] MEDS: D5-0.45% NACL WITH KCL 20MEQ/L 1,000 ML IV SCH ×2 (17:09→17:22)
[2019-02-10] MEDS: metroNIDAZOLE-NS PMX 500 MG in SALINE 1 100ML.BAG IVPB SCH ×2 (17:20→22:24)
[2019-02-10] MEDS: DILTIAZEM CD 180 MG CAP.ER.24H PO SCH (17:20)
[2019-02-10] MEDS: POTASSIUM CHLORIDE ER 10 MEQ TAB.ER.PRT PO SCH (17:20)
[2019-02-10] MEDS: VENLAFAXINE HCL ER 150 MG CAP PO SCH (17:20)
[2019-02-10] MEDS: HEPARIN SODIUM,PORCINE 5,000 UNIT/ML 1 ML VIAL SQ SCH ×2 (17:20→23:03)
[2019-02-10] MEDS: ATORVASTATIN 10 MG TAB PO SCH (17:20)
[2019-02-10] MEDS: ROPIVACAINE 250 MG, fentaNYL (PF) 625 MCG in SODIUM CHLORIDE 0.9% 188 ML EPIDURAL PRN (17:29)
[2019-02-10] MEDS: LEVOFLOXACIN 500 MG TAB PO SCH (19:35)
[2019-02-10] MEDS: MELATONIN 5 MG TABLET PO SCH (21:03)
[2019-02-10] MEDS: ALPRAZolam 0.25 MG TAB PO PRN (22:24)
[2019-02-11 01:02] LABS: Glucose,Whole Blood 132 mg/dL (75-99)
[2019-02-11 01:14] LABS: Basophils # (A) 0.1 k/uL (0-0.2); Basophils % (A) 1 %; Eosinophils # (A) 0.5 k/uL (0-0.7); Eosinophils % (A) 5 %; HCT 34.2 % (34.0-46.0); HGB 11.3 gm/dL (11.4-16.0); Lymphocytes # (A) 2.3 k/uL (1.0-4.8); Lymphocytes % (A) 23 %; MCH 30.5 pg (25.0-35.0); MCHC 32.9 g/dL (31.0-37.0); MCV 92.9 fL (80.0-100.0); Mean Platelet Volume 7.2; Monocytes # (A) 0.5 k/uL (0-1.0); Monocytes % (A) 5 %; Neutrophils # (A) 6.4 k/uL (1.3-7.7); Neutrophils % (A) 65 %; Platelet Count 169 k/uL (150-450); RBC 3.69 m/uL (3.80-5.40); RDW 12.7 % (11.5-15.5); WBC 9.9 k/uL (3.8-10.6)
[2019-02-11 01:26] LABS: ALT 39 U/L (9-52); AST 34 U/L (14-36); African American GFR (CKD) >90 (>60 ml/min/1.73 sqM); Albumin 3.3 g/dL (3.5-5.0); Alkaline Phosphatase 49 U/L (38-126); Anion Gap 6 mmol/L; Blood Urea Nitrogen 8 mg/dL (7-17); Calcium 8.6 mg/dL (8.4-10.2); Carbon Dioxide 25 mmol/L (22-30); Chloride 110 mmol/L (98-107); Glucose 128 mg/dL (74-99); Magnesium 1.8 mg/dL (1.6-2.3); Phosphorus 2.9 mg/dL (2.5-4.5); Potassium 4.4 mmol/L (3.5-5.1); Sodium 141 mmol/L (137-145); Total Bilirubin 0.5 mg/dL (0.2-1.3); Total Protein 5.8 g/dL (6.3-8.2)
[2019-02-11] MEDS: metroNIDAZOLE-NS PMX 500 MG in SALINE 1 100ML.BAG IVPB SCH ×3 (04:00→20:24)
[2019-02-11] MEDS ORDERED: ACETAMINOPHEN TAB 325 MG TAB PO PRN (04:05)
[2019-02-11 06:03] LABS: HCT 34.4 % (34.0-46.0); HGB 10.8 gm/dL (11.4-16.0); MCH 29.9 pg (25.0-35.0); MCHC 31.3 g/dL (31.0-37.0); MCV 95.5 fL (80.0-100.0); Mean Platelet Volume 7.6; Platelet Count 158 k/uL (150-450); RDW 12.9 % (11.5-15.5); WBC 7.6 k/uL (3.8-10.6)
[2019-02-11 06:17] LABS: ALT 32 U/L (9-52); AST 36 U/L (14-36); African American GFR (CKD) >90 (>60 ml/min/1.73 sqM); Albumin 3.2 g/dL (3.5-5.0); Alkaline Phosphatase 43 U/L (38-126); Anion Gap 5 mmol/L; Blood Urea Nitrogen 8 mg/dL (7-17); Calcium 8.3 mg/dL (8.4-10.2); Carbon Dioxide 25 mmol/L (22-30); Chloride 109 mmol/L (98-107); Glucose 109 mg/dL (74-99); Potassium 4.4 mmol/L (3.5-5.1); Sodium 139 mmol/L (137-145); Total Bilirubin 0.6 mg/dL (0.2-1.3); Total Protein 5.8 g/dL (6.3-8.2)
[2019-02-11] MEDS: D5-0.45% NACL WITH KCL 20MEQ/L 1,000 ML IV SCH ×2 (06:49→09:15)
[2019-02-11] MEDS: LEVOTHYROXINE 25 MCG TAB PO SCH (06:49)
[2019-02-11 07:50] VITALS: RESP 18
[2019-02-11] MEDS: HEPARIN SODIUM,PORCINE 5,000 UNIT/ML 1 ML VIAL SQ SCH ×3 (07:57→23:04)
[2019-02-11] MEDS: LORATADINE 10 MG TAB PO SCH (07:57)
[2019-02-11] MEDS: PANTOPRAZOLE 40 MG TABLET PO SCH (07:57)
[2019-02-11] MEDS: BISOPROLOL-HCTZ 5-6.25 MG 1 EACH TAB PO SCH (07:58)
[2019-02-11] MEDS: ARTIFICIAL TEARS-HYPROMELLOSE DROPS 15 ML BTL BOTH EYES SCH (07:59)
[2019-02-11 10:23] LABS: T4, Free (Free Thyroxine) 1.38 ng/dL (0.78-2.19)
[2019-02-11] MEDS ORDERED: HYDROcodone/APAP 5-325MG 1 EACH TAB PO PRN (10:29)
--- NOTE | 2019-02-11 10:34 | P.PN ---
Subjective Progress Note Date: 02/11/19 Patient seen and examined at bedside. Appears to be doing well. Has had multiple bowel movements and flatus. She did have an episode of SVT overnight and was transferred to the cardiac floor. She did convert with adenosine. Currently, the patient is asymptomatic and comfortable in bed. Objective - Vital Signs Vital signs: Vital Signs Temp 98.3 F 02/11/19 07:30 Pulse 67 02/11/19 07:30 Resp 18 02/11/19 07:30 BP 118/71 02/11/19 07:30 Pulse Ox 92 L 02/11/19 07:30 Intake & Output 02/10/19 02/11/19 02/11/19 18:59 06:59 18:59 Intake Total 160.533 120 Output Total 2975 2800 Balance -2814.467 -2800 120 Weight 77.2 kg Intake: Intake, IV Titration 160.533 Amount Ropivacaine 250 mg 160.533 fentaNYL (PF) 625 mcg In Sodium Chloride 0.9% 188 ml @ Per Protocol EPIDURAL .Q0M PRN Rx#: [id number] Oral 120 Output: Urine 2975 2800 Other: Voiding Method Indwelling Catheter Indwelling Catheter Indwelling Catheter # Voids 1 # Bowel Movements 1 - Constitutional General appearance: Present: cooperative, no acute distress - EENT Eyes: Present: PERRLA - Respiratory Details: No difficulty with respiration - Gastrointestinal Gastrointestinal Comment(s): Soft, appropriate tenderness, nondistended, no rebound, no guarding, midline incision clean, dry and intact - Psychiatric Psychiatric: Present: A&O x's 3 - Labs CBC & Chem 7: 02/11/19 05:43 02/11/19 05:43 Labs: Abnormal Lab Results - Last 24 Hours (Table) 02/11/19 02/11/19 02/11/19 Range/Units 00:50 00:54 00:54 RBC 3.69 L (3.80-5.40) m/uL Hgb 11.3 L (11.4-16.0) gm/dL Chloride 110 H (98-107) mmol/L Glucose 128 H (74-99) mg/dL POC Glucose (mg/dL) 132 H (75-99) mg/dL Calcium (8.4-10.2) mg/dL Total Protein 5.8 L (6.3-8.2) g/dL Albumin 3.3 L (3.5-5.0) g/dL TSH (0.465-4.680) mIU/L 02/11/19 02/11/19 02/11/19 Range/Units 05:43 05:43 05:43 RBC 3.60 L (3.80-5.40) m/uL Hgb 10.8 L (11.4-16.0) gm/dL Chloride 109 H (98-107) mmol/L Glucose 109 H (74-99) mg/dL POC Glucose (mg/dL) (75-99) mg/dL Calcium 8.3 L (8.4-10.2) mg/dL Total Protein 5.8 L (6.3-8.2) g/dL Albumin 3.2 L (3.5-5.0) g/dL TSH 6.390 H (0.465-4.680) mIU/L Assessment and Plan (1) Cecal volvulus Narrative/Plan: 73-year-old female postoperative day #3 after right hemicolectomy secondary to cecal volvulus - Continuing to have bowel function, advance to soft diet - DVT prophylaxis - Discontinue epidural and convert to oral and IV pain control - Discontinue Hartman catheter after epidural has been removed - Cardiology recommendations based on the SVT episode - Medical recommendations appreciated - Progressing slowly Current Visit: Yes Status: Acute Code(s): K56.2 - VOLVULUS SNOMED Code(s): 287456307
--- NOTE | 2019-02-11 11:09 | P.PN ---
Progress Note - Text Progress Note Date: 02/11/19 Postop day 2 status post right hemicolectomy, epidural catheter placed for postoperative pain control, patient currently on continuous infusion Dilaudid/operating room at 10 mL per hour, a catheter will be discontinued today, and the pain management as per surgical team, had no motor or sen steph deficits
[2019-02-11] MEDS: KETOROLAC 30 MG/ML 1 ML VIAL IVP SCH ×3 (11:35→23:04)
--- NOTE | 2019-02-11 14:26 | P.PN ---
Subjective Progress Note Date: 02/11/19 This is a 73-year-old female patient of Dr. Hughes with a previous medical history significant for hypertension and hypertensive cardiovascular disease with left ventricular hypertrophy, history of hyperlipidemia, history of anemia iron deficiency, history of breast cancer back in 1996 status post lumpectomy with radiation. Patient presented to [facility] emergency center with complaints of left flank pain and was recently treated for urinary tract infection and finished a course of Bactrim. Pain is in the left flank area and she does have history of kidney stones. She has had some nausea without vomiting and intermittent constipation. She denies having any dysuria, hematuria, fever or chills. 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 Dr. Lambert was contacted and patient was admitted under her service and patient is status post right hemicolectomy. 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 Patient is seen on the first postoperative day. Her pain is fairly well controlled wit epidural. She denies having any nausea or vomiting. No chest pain or shortness of breath. She denies passing gas, no bowel movement. Patient states she did not sleep last night. She has been afebrile, heart rate 64, blood pressure 93/57, pulse ox 87% on room air. WBC 15.3, hemoglobin 11.5, electrolytes within normal limits as well as liver function test. BUN 14 creatinine 0.75. Urinalysis turbid, blood moderate, nitrate negative, leukoesterase small, RBCs greater than 182, WBC 6. 02/10: Patient has been afebrile, pulse 79 blood pressure 132/83, pulse ox 92% on room air. Patient is currently on a clear liquid diet and tolerating. No nausea or vomiting. Patient has had 3 bowel movements. She feels her abdomen is a little bloated. Epidural catheter remains in place for pain control and this was increased by anesthesia this morning to 10 mL per hour. She is using incentive spirometry at 1500 mL. Patient was seen this morning by Dr. Mccarthy covering for Dr. Lambert and diet has been advanced to full liquids. 02/11: Patient is sitting up in bed in no apparent distress she denies any chest pain, shortness breath, her pain is well-controlled with a epidural catheter which will be coming out today. Patient did have a bowel movement, she continues to have a Hartman catheter will likely to be discontinued next 24 hours, we'll continue to monitor the patient very closely. 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 Review of Systems Constitutional: Reports daytime sleepiness, Denies chills, Denies fatigue, Denies fever, Denies lethargy, Denies malaise, Denies poor appetite, Denies weakness Ears, nose, mouth and throat: Denies dysphagia, Denies nasal congestion, Denies nasal discharge, Denies vertigo Cardiovascular: Denies chest pain, Denies decreased exercise tolerance, Denies dyspnea on exertion, Denies edema, Denies leg edema, Denies lightheadedness, Denies palpitations, Denies shortness of breath, Denies syncope Respiratory: Denies cough, Denies cough with sputum, Denies dyspnea, Denies excessive sputum, Denies hemoptysis, Denies home oxygen, Denies respiratory infections, Denies wheezing Gastrointestinal: R Reports abdominal pain, Reports bloating, denies constipation, Denies diarrhea, Denies nausea, Denies vomiting Genitourinary: Denies dysuria, Denies hematuria, Denies urgency, Denies urinary frequency Musculoskeletal: Denies frequent falls, Denies gait dysfunction, Denies muscle weakness, Denies myalgias Integumentary: Reports wounds, Denies pruritus, Denies rash Neurological: Denies change in mentation, Denies confusion, Denies gait dysfunction, Denies numbness, Denies seizures, Denies weakness Psychiatric: Denies anxiety, Denies depression Endocrine: Denies fatigue, Denies weight change Objective - Vital Signs Vital signs: Vital Signs Temp 98.3 F 02/11/19 07:30 Pulse 67 02/11/19 07:30 Resp 18 02/11/19 07:30 BP 118/71 02/11/19 07:30 Pulse Ox 92 L 02/11/19 07:30 Intake & Output 02/10/19 02/11/19 02/11/19 18:59 06:59 18:59 Intake Total 160.533 Output Total 2975 2800 Balance -2814.467 -2800 Weight 77.2 kg Intake: Intake, IV Titration 160.533 Amount Ropivacaine 250 mg 160.533 fentaNYL (PF) 625 mcg In Sodium Chloride 0.9% 188 ml @ Per Protocol EPIDURAL .Q0M PRN Rx#: [id number] Output: Urine 2975 2800 Other: Voiding Method Indwelling Catheter Indwelling Catheter - Exam - Constitutional General appearance: no acute distress - EENT Eyes: anicteric sclerae, EOMI, PERRLA, no ptosis, no scleral icterus, normal appearance ENT: no NA/AT (left-sided facial droop), normal oropharynx, no pharyngeal erythema, no thrush, no tonsillar exudates Ears: bilateral: normal - Neck Neck: no lymphadenopathy, normal ROM, no rigidity, no stridor, no thyromegaly Carotids: bilateral: upstroke normal Thyroid: bilateral: normal size - Respiratory Respiratory: bilateral: diminished, negative: dullness, rales, rhonchi, wheezing, prolonged expiration, prolonged inspiration - Cardiovascular Rhythm: regular Heart sounds: normal: S1, S2 Abnormal Heart Sounds: no rub, no S3 Gallop, no S4 Gallop, no click - Gastrointestinal General gastrointestinal: Normal bowel sounds, soft, no splenomegaly, mild generalized tenderness, no umbilical hernia, no ventral hernia Abdominal binder in place, dressing in place - Integumentary Integumentary: normal, normal turgor - Neurologic Neurologic: CNII-XII intact, focal deficits - Musculoskeletal Musculoskeletal: gait normal, strength equal bilaterally - Psychiatric Psychiatric: A&O x's 3, appropriate affect, intact judgment & insight - Labs CBC & Chem 7: 02/12/19 06:08 02/12/19 06:08 Labs: Abnormal Lab Results - Last 24 Hours (Table) 02/11/19 02/11/19 02/11/19 Range/Units 00:50 00:54 00:54 RBC 3.69 L (3.80-5.40) m/uL Hgb 11.3 L (11.4-16.0) gm/dL Chloride 110 H (98-107) mmol/L Glucose 128 H (74-99) mg/dL POC Glucose (mg/dL) 132 H (75-99) mg/dL Calcium (8.4-10.2) mg/dL Total Protein 5.8 L (6.3-8.2) g/dL Albumin 3.3 L (3.5-5.0) g/dL 02/11/19 02/11/19 Range/Units 05:43 05:43 RBC 3.60 L (3.80-5.40) m/uL Hgb 10.8 L (11.4-16.0) gm/dL Chloride 109 H (98-107) mmol/L Glucose 109 H (74-99) mg/dL POC Glucose (mg/dL) (75-99) mg/dL Calcium 8.3 L (8.4-10.2) mg/dL Total Protein 5.8 L (6.3-8.2) g/dL Albumin 3.2 L (3.5-5.0) g/dL Assessment and Plan Assessment: Assessment and Plan Plan: 1. 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 Continue incentive spirometry to reduce incidence of atelectasis and hospital-acquired pneumonia, current pain management, clear liquid diet advance to full liquid today, discontinue heparin catheter today, Hartman catheter will be removed tomorrow morning. 2. Hypertension and hypertensive cardiovascular disease. Ziac 5/6.25 mg orally once every day has been resumed with parameters, continue Cardizem CD 180 mg orally once every day. 3. Hyperlipidemia. Atorvastatin 10 mg daily 4. History of iron deficiency anemia resolved. 5. History of breast cancer status post left lumpectomy with radiation therapy. 6. Generalized anxiety disorder and recurrent depression. Continue Effexor XR 150 mg orally once every day as well as Xanax as needed. 7. Hypothyroidism. Continue Synthroid 25 g orally once every day. 8. GERD. Continue Protonix. 9. DVT prophylaxis. SCDs LUCI narvaez. 10. GI prophylaxis. Continue same treatment. 11. Increase activity.
--- NOTE | 2019-02-11 14:36 | P.CRDCN ---
<Daysi Brennan - Last Filed: 02/11/19 14:26> History of Present Illness History of present illness: This is Daysi Brennan PA-C dictating a consult on this patient The patient was interviewed and examined by me as well as by Dr. Nicholas Case discussed with Dr. Nicholas and he agrees with the plan of care IMPRESSION / ASSESSMENT: Short RP supraventricular tachycardia which terminated with adenosine, c onsistent with AVNRT, refractory to a combination of calcium channel blockers and beta blockers Sigmoid volvulus status post right hemicolectomy Hypothyroidism Hypertension PLAN: check TSH Recommend following up outpatient, consider EP study and radiofrequency ablation once she heals from her surgery Educated patient to try the Valsalva maneuver if this happens again HPI Patient is a 73-year-old female with a past medical history of hypothyroidism, hypertension who presented with complaints of back pain. CT of the abdomen and pelvis showed cecal volvulus and she underwent a right hemicolectomy. While on the unit she developed sudden onset of palpitations and dizziness after using the bathroom. She did not have any chest pain or shortness of breath at that time. No syncope. EKG showed short RP supraventricular tachycardia, consistent with AVNRT. She was given adenosine and it terminated. She has remained in sinus rhythm since. Patient states this is happening to her one time before. She does not see a business relationship manager but she is on verapamil and bisoprol. She was taking those medications when the AVNRT occurred. Patient seen and examined sitting at the side of the bed. Denies any further episodes of palpitations. Denies chest pain, shortness of breath or dizziness. ROS: No fevers, chills or rigors, no cough, phlegm or expectoration, Positive for abdominal pain no hematuria, dysuria, no musculoskeletal complaints, no strokes or seizures, no skin lesions. EXAMINATION: Temperature 98.3F, pulse 67, respirations 18, blood pressure 119/71, oxygen saturation 96% on room air Patient seen and examined sitting up at the side of the bed, in no acute distress Lungs are clear to auscultation bilaterally Heart is regular, normal S1-S2, no murmurs noted No lower extremity edema REVIEW OF LABS, ECG & MEDICAL DATA WBC 7.6, hemoglobin 10.8, platelets 158, potassium 4.4, creatinine 0.61, BUN 8 Past Medical History Past Medical History: Cancer, GERD/Reflux, Hyperlipidemia, Hypertension, Osteoarthritis (OA), Pneumonia, Renal Disease, Thyroid Disorder Additional Past Medical History / Comment(s): L breast cancer with lumpectomy/radiation, UTI, urosepsis with hypotension/SVT with cardioversion per pt, kidney stones, chronic hypokalemia, hypothyroid, iron deficiency anemia, sinus problems, R upper arm varicosity, arthritis in R hand and neck, osteopenia. History of Any Multi-Drug Resistant Organisms: None Reported Past Surgical History: Appendectomy, Breast Surgery, Cholecystectomy, Hysterectomy, Joint Replacement, Orthopedic Surgery, Tonsillectomy Additional Past Surgical History / Comment(s): open cholecystectomy many years ago, aidan hip replacements, low back surgery, L hand tendon surgery, cystoscopies, kidney stone removal (lithotripsy/stents-all out now), L breast lumpectom, bilateral cataract surgery with lens implants, colonoscopies, Migel fundoplication. Past Anesthesia/Blood Transfusion Reactions: Postoperative Nausea & Vomiting (PONV) Past Psychological History: Anxiety, Depression Smoking Status: Never smoker Past Alcohol Use History: None Reported Additional Past Alcohol Use History / Comment(s): No marijuana, illicit drug use, alcohol use. Past Drug Use History: None Reported - Past Family History Mother Family Medical History: Cancer Additional Family Medical History / Comment(s): Mother had pancreatic cancer. She of this in her early 70s. Daughter(s) Family Medical History: Cancer Additional Family Medical History / Comment(s): Patient has 2 daughters and one of her daughters is BRCA gene positive. Daughter had colon cancer. Son(s) Family Medical History: No Reported History Additional Family Medical History / Comment(s): Patient has one son with no major medical problems. Sister(s) Family Medical History: Thyroid Disorder Additional Family Medical History / Comment(s): Patient has 2 sisters with thyroid disease and one with breast cancer. Father Family Medical History: Myocardial Infarction ([place]) Additional Family Medical History / Comment(s): Father at the age of 52 yrs from a [place]. He was a smoker. Medications and Allergies Home Medications Medication Instructions Recorded Confirmed Type Diltiazem Cd [Cardizem CD] 180 mg PO W/SUPPER 09/17/13 02/08/19 History Venlafaxine HCl ER [Effexor XR] 150 mg PO W/SUPPER 09/17/13 02/08/19 History ALPRAZolam [Xanax] 0.25 mg PO QID PRN 02/04/15 02/08/19 History Cholecalciferol [Vitamin D3 (25 1,000 unit PO W/SUPPER 02/04/15 02/08/19 History Mcg = 1000 Iu)] Omeprazole [PriLOSEC] 20 mg PO AC-BRKFST 02/04/15 02/08/19 History Potassium Chloride ER [K-Dur 10] 10 meq PO W/SUPPER 02/04/15 02/08/19 History Bisoprol/Hydrochlorothiazide [Ziac 1 tab PO DAILY 09/07/16 02/08/19 History 5-6.25 MG] Atorvastatin [Lipitor] 10 mg PO W/SUPPER 02/10/18 02/08/19 History HYDROcodone/APAP 10-325MG [[place] 1 tab PO BID PRN 02/10/18 02/08/19 History 10-325] Calcium Carbonate/Vitamin D3 1 tab PO DAILY 02/08/19 02/08/19 History [Caltrate 600 Plus D3 Tablet] Cetirizine HCl [Zyrtec] 10 mg PO DAILY 02/08/19 02/08/19 History Fluticasone Nasal [place] [Flonase 1 spray EA NOSTRIL DAILY PRN 02/08/19 02/08/19 History Nasal [place]] Levothyroxine Sodium [Synthroid] 25 mcg PO DAILY 02/08/19 02/08/19 History Propylene Glycol [Systane Complete] 1 drop BOTH EYES DAILY 02/08/19 02/08/19 History Vitamin B Complex 1 cap PO DAILY 02/08/19 02/08/19 History Allergies Allergy/AdvReac Type Severity Reaction Status Date / Time amoxicillin trihydrate Allergy Unknown Verified 02/08/19 12:40 [From Augmentin] Penicillins Allergy Rash/Hives Verified 02/08/19 12:40 potassium clavulanate Allergy Unknown Verified 02/08/19 12:40 [From Augmentin] Physical Exam Vitals: Vital Signs Temp Pulse Resp BP Pulse Ox 02/11/19 11:45 66 18 119/71 96 02/11/19 07:30 98.3 F 67 18 118/71 92 L 02/11/19 04:00 98.1 F 74 16 135/81 93 L 02/10/19 20:00 18 02/10/19 19:53 98.5 F 72 18 130/81 90 L 02/10/19 16:40 98.1 F 87 16 137/89 95 Intake and Output 02/10/19 02/11/19 02/11/19 22:59 06:59 14:59 Intake Total 160.533 120 Output Total 2275 1300 1400 Balance -2114.467 -1300 -1280 Intake: Intake, IV Titration 160.533 Amount Ropivacaine 250 mg 160.533 fentaNYL (PF) 625 mcg In Sodium Chloride 0.9% 188 ml @ Per Protocol EPIDURAL .Q0M PRN Rx#: [id number] Oral 120 Output: Urine 2274 1300 1400 Other: Voiding Method Indwelling Catheter Indwelling Catheter Indwelling Catheter # Voids 1 # Bowel Movements 1 Weight 77.2 kg Results 02/11/19 05:43 02/11/19 05:43 Cardiac Enzymes 02/11/19 02/11/19 Range/Units 00:54 05:43 AST 34 36 (14-36) U/L CBC 02/11/19 02/11/19 Range/Units 00:54 05:43 WBC 9.9 7.6 (3.8-10.6) k/uL RBC 3.69 L 3.60 L (3.80-5.40) m/uL Hgb 11.3 L 10.8 L (11.4-16.0) gm/dL Hct 34.2 34.4 (34.0-46.0) % Plt Count 169 158 (150-450) k/uL Comprehensive Metabolic Panel 02/11/19 02/11/19 Range/Units 00:54 05:43 Sodium 141 139 (137-145) mmol/L Potassium 4.4 4.4 (3.5-5.1) mmol/L Chloride 110 H 109 H (98-107) mmol/L Carbon Dioxide 25 25 (22-30) mmol/L BUN 8 8 (7-17) mg/dL Creatinine 0.62 0.61 (0.52-1.04) mg/dL Glucose 128 H 109 H (74-99) mg/dL Calcium 8.6 8.3 L (8.4-10.2) mg/dL AST 34 36 (14-36) U/L ALT 39 32 (9-52) U/L Alkaline Phosphatase 49 43 (38-126) U/L Total Protein 5.8 L 5.8 L (6.3-8.2) g/dL Albumin 3.3 L 3.2 L (3.5-5.0) g/dL Current Medications Generic Name Dose Route Start Last Admin Trade Name Freq PRN Reason Stop Dose Admin Acetaminophen 650 mg 02/11/19 04:05 02/11/19 04:39 Tylenol Tab PO 650 mg Q6HR PRN Administration Fever and/ or Pain Hydrocodone Bitart/Acetaminophen 1 each 02/11/19 10:29 [place] 5-325 PO Q6HR PRN Pain Alprazolam 0.25 mg 02/08/19 23:00 02/10/19 22:24 Xanax PO 0.25 mg QID PRN Administration Anxiety Artificial Tears 1 drops 02/09/19 09:00 02/11/19 07:59 Artificial Tear Drops BOTH EYES 1 drops DAILY REYES Administration Atorvastatin Calcium 10 mg 02/08/19 22:30 02/10/19 17:20 Lipitor PO 10 mg W/SUPPER REYES Administration Bisoprolol Fumarate 1 each 02/09/19 09:00 02/11/19 07:58 Ziac 5-6.25 PO Not Given DAILY REYES Diltiazem HCl 180 mg 02/08/19 22:45 02/10/19 17:20 Cardizem Cd PO 180 mg W/SUPPER REYES Administration Diphenhydramine HCl 25 mg 02/10/19 12:20 Benadryl PO Q8HR PRN Allergy Symptoms Fluticasone Propionate 1 spray 02/09/19 09:00 02/10/19 09:02 Flonase Nasal [place] EA NOSTRIL 1 spray DAILY PRN Administration Allergy Symptoms Heparin Sodium (Porcine) 5,000 unit 02/10/19 16:00 02/11/19 07:57 Heparin SQ 5,000 unit Q8HR REYES Administration Hydromorphone HCl 0.5 mg 02/08/19 14:45 Dilaudid IVP Q3HR PRN Moderate Pain Hydromorphone HCl 1 mg 02/08/19 17:54 Dilaudid IVP Q3HR PRN Moderate to Severe Pain Metronidazole 500 mg/ IV 100 mls @ 100 mls/hr 02/10/19 12:00 02/11/19 11:36 Solution IVPB 100 mls/hr Q8H REYES Administration Ketorolac Tromethamine 15 mg 02/11/19 12:00 02/11/19 11:35 Toradol IVP 02/15/19 10:29 15 mg Q6HR REYES Administration Levofloxacin 500 mg 02/10/19 18:00 02/10/19 19:35 Levaquin PO 500 mg DAILY@1800 REYES Administration Levothyroxine Sodium 25 mcg 02/09/19 06:30 02/11/19 06:49 Synthroid PO 25 mcg DAILY@0630 REYES Administration Loratadine 10 mg 02/09/19 09:00 02/11/19 07:57 Claritin PO 10 mg DAILY REYES Administration Melatonin 10 mg 02/09/19 21:00 02/10/19 21:03 Melatonin PO 10 mg HS REYES Administration Naloxone HCl 0.2 mg 02/08/19 18:10 Narcan IV Q2M PRN Opioid Reversal Ondansetron HCl 4 mg 02/08/19 14:45 02/08/19 16:14 Zofran IVP 4 mg Q8HR PRN Administration Nausea And Vomiting Pantoprazole Sodium 40 mg 02/11/19 09:00 02/11/19 07:57 Protonix PO 40 mg DAILY REYES Administration Potassium Chloride 10 meq 02/08/19 22:45 02/10/19 17:20 K-Dur 10 PO 10 meq W/SUPPER REYES Administration Venlafaxine HCl 150 mg 02/08/19 22:45 02/10/19 17:20 Effexor Xr PO 150 mg W/SUPPER REYES Administration Intake and Output 02/10/19 02/11/19 02/11/19 22:59 06:59 14:59 Intake Total 160.533 120 Output Total 2275 1300 1400 Balance -2114.467 1300 1280 Intake: Intake, IV Titration 160.533 Amount Ropivacaine 250 mg 160.533 fentaNYL (PF) 625 mcg In Sodium Chloride 0.9% 188 ml @ Per Protocol EPIDURAL .Q0M PRN Rx#: [id number] Oral 120 Output: Urine 2275 1300 1400 Other: Voiding Method Indwelling Catheter Indwelling Catheter Indwelling Catheter # Voids 1 # Bowel Movements 1 Weight 77.2 kg 02/11/19 05:43 02/11/19 05:43 <Mukund Nicholas - Last Filed: 02/11/19 21:43> History of Present Illness History of present illness: Patient interviewed and examined Detailed discussion with her regarding management of SVT Also, no explained She is already on beta blockers and high-dose calcium channel blockers Once the surgical issues are resolved then, as an outpatient I would recommend an EP study and difficult see ablation for AV node reentry tachycardia This time during an episode she felt hot and flushed and complaint of palpitations Drug refractory AV node reentrant tachycardia Physical Exam Vitals: Vital Signs Temp Pulse Resp BP Pulse Ox 02/11/19 19:50 18 02/11/19 19:35 98.4 F 70 18 152/84 95 02/11/19 16:00 98.3 F 73 18 147/75 93 L 02/11/19 11:45 66 18 119/71 96 02/11/19 07:30 98.3 F 67 18 118/71 92 L 02/11/19 04:00 98.1 F 74 16 135/81 93 L Intake and Output 02/11/19 02/11/19 02/11/19 06:59 14:59 22:59 Intake Total 240 240 Output Total 1300 1400 500 Balance -1300 -1160 -260 Intake: Oral 240 240 Output: Urine 1300 1400 500 Uretheral (Hartman) 500 Other: Voiding Method Indwelling Catheter Indwelling Catheter Toilet # Voids 1 0 # Bowel Movements 1 Weight 77.2 kg Results 02/11/19 05:43 02/11/19 05:43 Cardiac Enzymes 02/11/19 02/11/19 Range/Units 00:54 05:43 AST 34 36 (14-36) U/L CBC 02/11/19 02/11/19 Range/Units 00:54 05:43 WBC 9.9 7.6 (3.8-10.6) k/uL RBC 3.69 L 3.60 L (3.80-5.40) m/uL Hgb 11.3 L 10.8 L (11.4-16.0) gm/dL Hct 34.2 34.4 (34.0-46.0) % Plt Count 169 158 (150-450) k/uL Comprehensive Metabolic Panel 02/11/19 02/11/19 Range/Units 00:54 05:43 Sodium 141 139 (137-145) mmol/L Potassium 4.4 4.4 (3.5-5.1) mmol/L Chloride 110 H 109 H (98-107) mmol/L Carbon Dioxide 25 25 (22-30) mmol/L BUN 8 8 (7-17) mg/dL Creatinine 0.62 0.61 (0.52-1.04) mg/dL Glucose 128 H 109 H (74-99) mg/dL Calcium 8.6 8.3 L (8.4-10.2) mg/dL AST 34 36 (14-36) U/L ALT 39 32 (9-52) U/L Alkaline Phosphatase 49 43 (38-126) U/L Total Protein 5.8 L 5.8 L (6.3-8.2) g/dL Albumin 3.3 L 3.2 L (3.5-5.0) g/dL Current Medications Generic Name Dose Route Start Last Admin Trade Name Freq PRN Reason Stop Dose Admin Acetaminophen 650 mg 02/11/19 04:05 02/11/19 04:39 Tylenol Tab PO 650 mg Q6HR PRN Administration Fever and/ or Pain Hydrocodone Bitart/Acetaminophen 1 each 02/11/19 19:46 02/11/19 20:23 [place] 5-325 PO 1 each Q4HR PRN Administration Pain Alprazolam 0.25 mg 02/08/19 23:00 02/11/19 20:23 Xanax PO 0.25 mg QID PRN Administration Anxiety Artificial Tears 1 drops 02/09/19 09:00 02/11/19 07:59 Artificial Tear Drops BOTH EYES 1 drops DAILY REYES Administration Atorvastatin Calcium 10 mg 02/08/19 22:30 02/11/19 17:56 Lipitor PO 10 mg W/SUPPER REYES Administration Bisoprolol Fumarate 1 each 02/09/19 09:00 02/11/19 07:58 Ziac 5-6.25 PO Not Given DAILY REYES Diltiazem HCl 180 mg 02/08/19 22:45 02/11/19 17:57 Cardizem Cd PO 180 mg W/SUPPER REYES Administration Diphenhydramine HCl 25 mg 02/10/19 12:20 Benadryl PO Q8HR PRN Allergy Symptoms Fluticasone Propionate 1 spray 02/09/19 09:00 02/10/19 09:02 Flonase Nasal [place] EA NOSTRIL 1 spray DAILY PRN Administration Allergy Symptoms Heparin Sodium (Porcine) 5,000 unit 02/10/19 16:00 02/11/19 16:44 Heparin SQ 5,000 unit Q8HR REYES Administration Hydromorphone HCl 0.5 mg 02/08/19 14:45 Dilaudid IVP Q3HR PRN Moderate Pain Hydromorphone HCl 1 mg 02/08/19 17:54 Dilaudid IVP Q3HR PRN Moderate to Severe Pain Metronidazole 500 mg/ IV 100 mls @ 100 mls/hr 02/10/19 12:00 02/11/19 20:24 Solution IVPB 100 mls/hr Q8H REYES Administration Ketorolac Tromethamine 15 mg 02/11/19 12:00 02/11/19 17:57 Toradol IVP 02/15/19 10:29 15 mg Q6HR REYES Administration Levofloxacin 500 mg 02/10/19 18:00 02/11/19 17:57 Levaquin PO 500 mg DAILY@1800 [facility] Administration Levothyroxine Sodium 25 mcg 02/09/19 06:30 02/11/19 06:49 Synthroid PO 25 mcg DAILY@0630 REYES Administration Loratadine 10 mg 02/09/19 09:00 02/11/19 07:57 Claritin PO 10 mg DAILY REYES Administration Melatonin 10 mg 02/09/19 21:00 02/11/19 20:23 Melatonin PO 10 mg HS REYES Administration Naloxone HCl 0.2 mg 02/08/19 18:10 Narcan IV Q2M PRN Opioid Reversal Ondansetron HCl 4 mg 02/08/19 14:45 02/08/19 16:14 Zofran IVP 4 mg Q8HR PRN Administration Nausea And Vomiting Pantoprazole Sodium 40 mg 02/11/19 09:00 02/11/19 07:57 Protonix PO 40 mg DAILY REYES Administration Potassium Chloride 10 meq 02/08/19 22:45 02/11/19 17:57 K-Dur 10 PO 10 meq W/SUPPER REYES Administration Venlafaxine HCl 150 mg 02/08/19 22:45 02/11/19 19:18 Effexor Xr PO 150 mg W/SUPPER REYES Administration Intake and Output 10/19/19 10/19/19 10/19/19 06:59 14:59 22:59 Intake Total 240 240 Output Total 1300 1400 500 Balance -7126 -1730 -349 Intake: Oral 240 240 Output: Urine 1300 1400 500 Uretheral ([place]) 500 Other: Voiding Method Indwelling Catheter Indwelling Catheter Toilet # Voids 1 0 # Bowel Movements 1 Weight 77.2 kg 02/11/19 05:43 02/11/19 05:43
[2019-02-11] MEDS: ATORVASTATIN 10 MG TAB PO SCH (17:56)
[2019-02-11] MEDS: POTASSIUM CHLORIDE ER 10 MEQ TAB.ER.PRT PO SCH (17:57)
[2019-02-11] MEDS: LEVOFLOXACIN 500 MG TAB PO SCH (17:57)
[2019-02-11] MEDS: DILTIAZEM CD 180 MG CAP.ER.24H PO SCH (17:57)
[2019-02-11] MEDS: VENLAFAXINE HCL ER 150 MG CAP PO SCH (19:18)
[2019-02-11] MEDS: HYDROcodone/APAP 5-325MG 1 EACH TAB PO PRN (20:23)
[2019-02-11] MEDS: MELATONIN 5 MG TABLET PO SCH (20:23)
[2019-02-11] MEDS: ALPRAZolam 0.25 MG TAB PO PRN (20:23)
[2019-02-11 23:32] VITALS: TEMP 97.9
[2019-02-12] MEDS: HYDROcodone/APAP 5-325MG 1 EACH TAB PO PRN ×2 (00:17→04:26)
[2019-02-12] MEDS: metroNIDAZOLE-NS PMX 500 MG in SALINE 1 100ML.BAG IVPB SCH (03:22)
[2019-02-12] MEDS: LEVOTHYROXINE 25 MCG TAB PO SCH (06:01)
[2019-02-12] MEDS: KETOROLAC 30 MG/ML 1 ML VIAL IVP SCH (06:01)
[2019-02-12 06:41] LABS: Basophils % (A) 1 %; Eosinophils # (A) 0.5 k/uL (0-0.7); Eosinophils % (A) 6 %; HCT 35.7 % (34.0-46.0); HGB 11.3 gm/dL (11.4-16.0); Lymphocytes # (A) 1.6 k/uL (1.0-4.8); Lymphocytes % (A) 20 %; MCH 29.8 pg (25.0-35.0); MCHC 31.5 g/dL (31.0-37.0); MCV 94.6 fL (80.0-100.0); Mean Platelet Volume 7.4; Monocytes # (A) 0.4 k/uL (0-1.0); Monocytes % (A) 4 %; Neutrophils # (A) 5.5 k/uL (1.3-7.7); Neutrophils % (A) 68 %; Platelet Count 182 k/uL (150-450); RBC 3.78 m/uL (3.80-5.40); RDW 12.9 % (11.5-15.5); WBC 8.1 k/uL (3.8-10.6)
[2019-02-12 07:01] LABS: ALT 32 U/L (9-52); AST 27 U/L (14-36); African American GFR (CKD) >90 (>60 ml/min/1.73 sqM); Albumin 3.4 g/dL (3.5-5.0); Alkaline Phosphatase 51 U/L (38-126); Anion Gap 10 mmol/L; Blood Urea Nitrogen 6 mg/dL (7-17); Calcium 8.7 mg/dL (8.4-10.2); Carbon Dioxide 26 mmol/L (22-30); Chloride 105 mmol/L (98-107); Glucose 115 mg/dL (74-99); Potassium 3.9 mmol/L (3.5-5.1); Sodium 141 mmol/L (137-145); Total Bilirubin 0.6 mg/dL (0.2-1.3); Total Protein 6.1 g/dL (6.3-8.2)
[2019-02-12 08:29] VITALS: BP 128/78; PULSE 74
[2019-02-12] MEDS: HEPARIN SODIUM,PORCINE 5,000 UNIT/ML 1 ML VIAL SQ SCH (09:03)
[2019-02-12] MEDS: LORATADINE 10 MG TAB PO SCH (09:03)
[2019-02-12] MEDS: BISOPROLOL-HCTZ 5-6.25 MG 1 EACH TAB PO SCH (09:03)
[2019-02-12] MEDS: PANTOPRAZOLE 40 MG TABLET PO SCH (09:03)
[2019-02-12] MEDS: ARTIFICIAL TEARS-HYPROMELLOSE DROPS 15 ML BTL BOTH EYES SCH (09:19)
--- NOTE | 2019-02-12 09:58 | P.DS ---
Providers Date of admission: 02/08/19 15:36 Attending physician: Billie Lambert Consults: 02/08/19 14:45 Consult Physician Urgent Consulting Provider: Sebastian Hughes Consult Reason/Comments: Management Do you want consulting provider notified?: Yes 02/11/19 01:01 Consult Physician Routine Consulting Provider: Olga Corbin Consult Reason/Comments: SVT Do you want consulting provider notified?: Yes, Notify in am Primary care physician: Sebastian Hughes - Discharge Diagnosis(es) (1) Cecal volvulus Current Visit: Yes Status: Acute Hospital Course: 73-year-old female presented with cecal volvulus. She was taken to the operating room and right hemicolectomy was performed. Postoperatively, the patient improved from a surgical standpoint. She was evaluated by medicine and cardiology. Diet was advanced as the patient tolerated. She was noted to be surgically stable for discharge. Procedures: Right hemicolectomy Patient Condition at Discharge: Fair Plan - Discharge Summary Discharge Rx Participant: Yes New Discharge Prescriptions: New HYDROcodone/APAP 5-325MG [[place] 5-325] 1 each PO Q6HR PRN #15 tab PRN Reason: Pain Continue Venlafaxine HCl ER [Effexor XR] 150 mg PO W/SUPPER Diltiazem Cd [Cardizem CD] 180 mg PO W/SUPPER Potassium Chloride ER [K-Dur 10] 10 meq PO W/SUPPER Omeprazole [PriLOSEC] 20 mg PO AC-BRKFST ALPRAZolam [Xanax] 0.25 mg PO QID PRN PRN Reason: Anxiety Cholecalciferol [Vitamin D3 (25 Mcg = 1000 Iu)] 1,000 unit PO W/SUPPER Bisoprol/Hydrochlorothiazide [Ziac 5-6.25 MG] 1 tab PO DAILY Atorvastatin [Lipitor] 10 mg PO W/SUPPER HYDROcodone/APAP 10-325MG [[place] 10-325] 1 tab PO BID PRN PRN Reason: Pain Propylene Glycol [Systane Complete] 1 drop BOTH EYES DAILY Vitamin B Complex 1 cap PO DAILY Cetirizine HCl [Zyrtec] 10 mg PO DAILY Calcium Carbonate/Vitamin D3 [Caltrate 600 Plus D3 Tablet] 1 tab PO DAILY Levothyroxine Sodium [Synthroid] 25 mcg PO DAILY Fluticasone Nasal [place] [Flonase Nasal [place]] 1 spray EA NOSTRIL DAILY PRN PRN Reason: Allergy Symptoms Discharge Medication List Diltiazem Cd [Cardizem CD] 180 mg PO W/SUPPER 09/17/13 [History] Venlafaxine HCl ER [Effexor XR] 150 mg PO W/SUPPER 09/17/13 [History] ALPRAZolam [Xanax] 0.25 mg PO QID PRN 02/04/15 [History] Cholecalciferol [Vitamin D3 (25 Mcg = 1000 Iu)] 1,000 unit PO W/SUPPER 02/04/15 [History] Omeprazole [PriLOSEC] 20 mg PO AC-BRKFST 02/04/15 [History] Potassium Chloride ER [K-Dur 10] 10 meq PO W/SUPPER 02/04/15 [History] Bisoprol/Hydrochlorothiazide [Ziac 5-6.25 MG] 1 tab PO DAILY 09/07/16 [History] Atorvastatin [Lipitor] 10 mg PO W/SUPPER 02/10/18 [History] HYDROcodone/APAP 10-325MG [[place] 10-325] 1 tab PO BID PRN 02/10/18 [History] Calcium Carbonate/Vitamin D3 [Caltrate 600 Plus D3 Tablet] 1 tab PO DAILY 02/08/19 [History] Cetirizine HCl [Zyrtec] 10 mg PO DAILY 02/08/19 [History] Fluticasone Nasal [place] [Flonase Nasal [place]] 1 spray EA NOSTRIL DAILY PRN 02/08/19 [History] Levothyroxine Sodium [Synthroid] 25 mcg PO DAILY 02/08/19 [History] Propylene Glycol [Systane Complete] 1 drop BOTH EYES DAILY 02/08/19 [History] Vitamin B Complex 1 cap PO DAILY 02/08/19 [History] HYDROcodone/APAP 5-325MG [[place] 5-325] 1 each PO Q6HR PRN #15 tab 02/12/19 [Rx] Follow up Appointment(s)/Referral(s): Mukund Nicholas MD [STAFF PHYSICIAN] - 4 Weeks Sebastian Hughes MD [Primary Care Provider] - 1-2 days (Please make appointment when office is open) Billie Lambert DO [Doctor of Osteopathic Medicine] - 1 Week Patient Instructions/Handouts: Low Fiber Diet (GEN) Activity/Diet/Wound Care/Special Instructions: Okay to shower Take pain medication as necessary Stay on soft diet Continue to slowly increase activity Continue incentive spirometry at home No lifting greater than 5 [address] while taking narcotic pain medication Discharge Disposition: HOME SELF-CARE
--- NOTE | 2019-02-12 10:40 | P.PN ---
Subjective Progress Note Date: 02/12/19 This is a 73-year-old female patient of Dr. Hughes with a previous medical history significant for hypertension and hypertensive cardiovascular disease with left ventricular hypertrophy, history of hyperlipidemia, history of anemia iron deficiency, history of breast cancer back in 1996 status post lumpectomy with radiation. Patient presented to [facility] emergency center with complaints of left flank pain and was recently treated for urinary tract infection and finished a course of Bactrim. Pain is in the left flank area and she does have history of kidney stones. She has had some nausea without vomiting and intermittent constipation. She denies having any dysuria, hematuria, fever or chills. 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 Dr. Lambert was contacted and patient was admitted under her service and patient is status post right hemicolectomy. 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 Patient is seen on the first postoperative day. Her pain is fairly well controlled wit epidural. She denies having any nausea or vomiting. No chest pain or shortness of breath. She denies passing gas, no bowel movement. Patient states she did not sleep last night. She has been afebrile, heart rate 64, blood pressure 93/57, pulse ox 87% on room air. WBC 15.3, hemoglobin 11.5, electrolytes within normal limits as well as liver function test. BUN 14 creatinine 0.75. Urinalysis turbid, blood moderate, nitrate negative, leukoesterase small, RBCs greater than 182, WBC 6. 02/10: Patient has been afebrile, pulse 79 blood pressure 132/83, pulse ox 92% on room air. Patient is currently on a clear liquid diet and tolerating. No nausea or vomiting. Patient has had 3 bowel movements. She feels her abdomen is a little bloated. Epidural catheter remains in place for pain control and this was increased by anesthesia this morning to 10 mL per hour. She is using incentive spirometry at 1500 mL. Patient was seen this morning by Dr. Mccarthy covering for Dr. Lambert and diet has been advanced to full liquids. 02/11: Patient is sitting up in bed in no apparent distress she denies any chest pain, shortness breath, her pain is well-controlled with a epidural catheter which will be coming out today. Patient did have a bowel movement, she continues to have a Hartman catheter will likely to be discontinued next 24 hours, we'll continue to monitor the patient very closely. 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 02/12: Doing much better today she denies any chest pain or shortness breath, she is ablating well tolerating her diet very well she is having bowel movement most likely she will be discharged home today. Review of Systems Constitutional: Reports daytime sleepiness, Denies chills, Denies fatigue, Denies fever, Denies lethargy, Denies malaise, Denies poor appetite, Denies weakness Ears, nose, mouth and throat: Denies dysphagia, Denies nasal congestion, Denies nasal discharge, Denies vertigo Cardiovascular: Denies chest pain, Denies decreased exercise tolerance, Denies dyspnea on exertion, Denies edema, Denies leg edema, Denies lightheadedness, Denies palpitations, Denies shortness of breath, Denies syncope Respiratory: Denies cough, Denies cough with sputum, Denies dyspnea, Denies excessive sputum, Denies hemoptysis, Denies home oxygen, Denies respiratory infections, Denies wheezing Gastrointestinal: R Reports abdominal pain, Reports bloating, denies constipation, Denies diarrhea, Denies nausea, Denies vomiting Genitourinary: Denies dysuria, Denies hematuria, Denies urgency, Denies urinary frequency Musculoskeletal: Denies frequent falls, Denies gait dysfunction, Denies muscle weakness, Denies myalgias Integumentary: Reports wounds, Denies pruritus, Denies rash Neurological: Denies change in mentation, Denies confusion, Denies gait dysfunction, Denies numbness, Denies seizures, Denies weakness Psychiatric: Denies anxiety, Denies depression Endocrine: Denies fatigue, Denies weight change Objective - Vital Signs Vital signs: Vital Signs Temp 97.9 F 02/12/19 03:25 Pulse 75 02/12/19 03:25 Resp 18 02/12/19 03:25 BP 114/62 02/12/19 03:25 Pulse Ox 94 L 02/12/19 03:25 Intake & Output 02/11/19 02/12/19 02/12/19 18:59 06:59 18:59 Intake Total 480 Output Total 1900 Balance -1420 Weight 77.3 kg Intake: Oral 480 Output: Urine 1900 Uretheral (Hartman) 500 Other: Voiding Method Indwelling Catheter Toilet # Voids 0 # Bowel Movements 1 - Exam - Constitutional General appearance: no acute distress - EENT Eyes: anicteric sclerae, EOMI, PERRLA, no ptosis, no scleral icterus, normal appearance ENT: no NA/AT (left-sided facial droop), normal oropharynx, no pharyngeal erythema, no thrush, no tonsillar exudates Ears: bilateral: normal - Neck Neck: no lymphadenopathy, normal ROM, no rigidity, no stridor, no thyromegaly Carotids: bilateral: upstroke normal Thyroid: bilateral: normal size - Respiratory Respiratory: bilateral: diminished, negative: dullness, rales, rhonchi, wheezing, prolonged expiration, prolonged inspiration - Cardiovascular Rhythm: regular Heart sounds: normal: S1, S2 Abnormal Heart Sounds: no rub, no S3 Gallop, no S4 Gallop, no click - Gastrointestinal General gastrointestinal: Normal bowel sounds, soft, no splenomegaly, mild generalized tenderness, no umbilical hernia, no ventral hernia Abdominal binder in place, dressing in place - Integumentary Integumentary: normal, normal turgor - Neurologic Neurologic: CNII-XII intact, focal deficits - Musculoskeletal Musculoskeletal: gait normal, strength equal bilaterally - Psychiatric Psychiatric: A&O x's 3, appropriate affect, intact judgment & insight - Labs CBC & Chem 7: 02/12/19 06:08 02/12/19 06:08 Labs: Abnormal Lab Results - Last 24 Hours (Table) 02/11/19 02/12/19 02/12/19 Range/Units 05:43 06:08 06:08 RBC 3.78 L (3.80-5.40) m/uL Hgb 11.3 L (11.4-16.0) gm/dL BUN 6 L (7-17) mg/dL Glucose 115 H (74-99) mg/dL Total Protein 6.1 L (6.3-8.2) g/dL Albumin 3.4 L (3.5-5.0) g/dL TSH 6.390 H (0.465-4.680) mIU/L Assessment and Plan Assessment: Assessment and Plan Plan: 1. 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 Continue incentive spirometry to reduce incidence of atelectasis and hospital-acquired pneumonia, current pain management, clear liquid diet advance to full liquid today, discontinue heparin catheter today, Hartman catheter will be removed tomorrow morning. 2. Hypertension and hypertensive cardiovascular disease. Ziac 5/6.25 mg orally once every day has been resumed with parameters, continue Cardizem CD 180 mg orally once every day. 3. Hyperlipidemia. Atorvastatin 10 mg daily 4. History of iron deficiency anemia resolved. 5. History of breast cancer status post left lumpectomy with radiation therapy. 6. Generalized anxiety disorder and recurrent depression. Continue Effexor XR 150 mg orally once every day as well as Xanax as needed. 7. Hypothyroidism. Continue Synthroid 25 g orally once every day. 8. GERD. Continue Protonix. 9. DVT prophylaxis. SCDs LUCI narvaez. 10. GI prophylaxis. Continue same treatment. 11. Increase activity. 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 she will follow up with cardiology for ablation procedure. 13. Medically stable for discharge.
--- NOTE | 2019-02-12 15:45 | P.PN ---
Subjective This is Daysi Brennan PA-C dictating a progress note on this patient The patient was interviewed and examined by me as well as by Dr. Nicholas Case discussed with Dr. Nicholas and he agrees with the plan of care IIMPRESSION / ASSESSMENT: Short RP supraventricular tachycardia which terminated with adenosine, consistent with AVNRT, refractory to a combination of calcium channel blockers and beta blockers Sigmoid volvulus status post right hemicolectomy Hypothyroidism, TSH elevated Hypertension, well controlled PLAN: Recommend following up outpatient, consider EP study and radiofrequency ablation once she heals from her surgery Educated patient to try the Valsalva maneuver if this happens again Management of elevated TSH by primary team HPI/interval history Patient is a 73-year-old female with a past medical history of hypothyroidism, hypertension who presented with complaints of back pain. CT of the abdomen and pelvis showed cecal volvulus and she underwent a right hemicolectomy. While recovering from her surgery, she developed palpitations and an EKG showed short RP supraventricular tachycardia, consistent with AVNRT. She was given adenosine and it terminated. She has remained in sinus rhythm since. Patient seen and e xamined sitting up at the side of her bed. States her pain is improving but she is still little sore from her surgery. No further episodes of palpitations. No chest pain, dizziness or shortness of breath. EXAMINATION Temperature 97.9F, pulse 74, respirations 18, blood pressure 128/78, oxygen sa turation 94% on room air Patient seen and examined sitting up at the side of the bed, in no acute di stress Heart is regular, no murmurs noted Lungs clear to auscultation bilaterally No lower extremity edema REVIEW OF LABS, ECG TSH is elevated at 6.39 Has been in sinus rhythm on telemetry Objective - Vital Signs Vital signs: Vital Signs Temp 97.9 F 02/12/19 08:00 Pulse 74 02/12/19 08:00 Resp 18 02/12/19 08:00 BP 128/78 02/12/19 08:00 Pulse Ox 94 L 02/12/19 08:00 Intake & Output 02/11/19 02/12/19 02/12/19 18:59 06:59 18:59 Intake Total 480 120 Output Total 1900 Balance -1420 120 Weight 77.3 kg Intake: Oral 480 120 Output: Urine 1900 Uretheral (Hartman) 500 Other: Voiding Method Indwelling Catheter Toilet # Voids 0 1 # Bowel Movements 1 0 - Labs CBC & Chem 7: 02/12/19 06:08 02/12/19 06:08 Labs: Abnormal Lab Results - Last 24 Hours (Table) 02/12/19 02/12/19 Range/Units 06:08 06:08 RBC 3.78 L (3.80-5.40) m/uL Hgb 11.3 L (11.4-16.0) gm/dL BUN 6 L (7-17) mg/dL Glucose 115 H (74-99) mg/dL Total Protein 6.1 L (6.3-8.2) g/dL Albumin 3.4 L (3.5-5.0) g/dL
--- NOTE | 2019-02-14 05:45 | CDI ---
Documentation Clarification Form Date: 02/14/19 From: Stephanalfie Valdiviady Phone: call [phone] Admit Date: 02/08/2019 3:36:00 PM Patient Name: Nancy Estrada Visit Number: [id number] Discharge Date: 02/12/2019 12:10:00 PM ATTENTION: The Clinical Documentation Specialists (CDI) and [facility] Coding Staff appreciate your assistance in clarifying documentation. Please respond to the clarification below the line at the bottom and electronically sign. The CDI & [facility] Coding staff will review the response and follow-up if needed. Please note: Queries are made part of the Legal Health Record. If you have any questions, please contact the author of this message via ITS. Dr. Ekaterina Mccarthy, The final diagnosis of the pathology report states: COLON, RIGHT HEMICOLECTOMY: Benign small bowel and colonic mucosa with acute ischemic colitis, mild atrophic changes and submucosal hemorrhage consistent with clinical volvulus. Documentation states: colon volvulus. Patient history/risk factors: volvulus with microperforation. Treatment: Right hemicolectomy. In your professional opinion, do you agree with the pathology report specifying as colonic mucosa with acute ischemic colitis ? Yes No Other (please specify) Unable to determine I saw this patient in the post-operative setting. Procedure was done by Dr. Billie Lambert. She will need to answer this query. ABBY
--- NOTE | 2019-02-16 00:22 | CDI ---
Documentation Clarification Form Date: 02/16/19 From: Stephan Willard Phone: call [phone] Admit Date: 02/08/2019 3:36:00 PM Patient Name: Nancy Estrada Visit Number: [id number] Discharge Date: 02/12/2019 12:10:00 PM ATTENTION: The Clinical Documentation Specialists (CDI) and [facility] Coding Staff appreciate your assistance in clarifying documentation. Please respond to the clarification below the line at the bottom and electronically sign. The CDI & [facility] Coding staff will review the response and follow-up if needed. Please note: Queries are made part of the Legal Health Record. If you have any questions, please contact the author of this message via ITS. Dr. Billie Lambert, The final diagnosis of the pathology report states: COLON, RIGHT HEMICOLECTOMY: Benign small bowel and colonic mucosa with acute ischemic colitis, mild atrophic changes and submucosal hemorrhage consistent with clinical volvulus. Documentation states: colon volvulus. Patient history/risk factors: volvulus with microperforation. Treatment: Right hemicolectomy. In your professional opinion, do you agree with the pathology report specifying as colonic mucosa with acute ischemic colitis ? Yes No Other (please specify) Unable to determine yes MTDD
== END 2019-02-12 12:10 | disposition home or self-care (01) | DRG 329 ==
LOC: EC 12:00 → 4SSUR 15:36 → 3SCARD 02-11 01:26
PROVIDERS: ADMIT Surgery; ATTEND Surgery
PROC: 0DTF0ZZ Resection of Right Large Intestine, Open Approach (ICD-10-PCS; principal; 2019-02-08 12:10)
DX: K56.2 Volvulus (principal); K55.019 Acute (reversible) ischemia of small intestine, extent unspecified; F33.9 Major depressive disorder, recurrent, unspecified; I47.1 Supraventricular tachycardia; E03.9 Hypothyroidism, unspecified; K21.9 Gastro-esophageal reflux disease without esophagitis; M85.80 Other specified disorders of bone density and structure, unspecified site; Z96.643 Presence of artificial hip joint, bilateral; Z96.1 Presence of intraocular lens; F41.9 Anxiety disorder, unspecified; M19.90 Unspecified osteoarthritis, unspecified site; N20.0 Calculus of kidney; I11.9 Hypertensive heart disease without heart failure; E78.5 Hyperlipidemia, unspecified; Z88.0 Allergy status to penicillin; Z88.8 Allergy status to other drugs, medicaments and biological substances; Z87.01 Personal history of pneumonia (recurrent); Z87.440 Personal history of urinary (tract) infections; Z87.442 Personal history of urinary calculi; Z79.890 Hormone replacement therapy; Z85.3 Personal history of malignant neoplasm of breast; Z90.49 Acquired absence of other specified parts of digestive tract; Z90.710 Acquired absence of both cervix and uterus; Z98.41 Cataract extraction status, right eye; Z82.49 Family history of ischemic heart disease and other diseases of the circulatory system; Z98.42 Cataract extraction status, left eye; Z80.0 Family history of malignant neoplasm of digestive organs; Z80.3 Family history of malignant neoplasm of breast; Z83.49 Family history of other endocrine, nutritional and metabolic diseases; Z86.2 Personal history of diseases of the blood and blood-forming organs and certain disorders involving the immune mechanism; Z98.890 Other specified postprocedural states; Z86.79 Personal history of other diseases of the circulatory system; Z80.8 Family history of malignant neoplasm of other organs or systems; Z79.899 Other long term (current) drug therapy
CPT/HCPCS: 36415; 74176; 80053; 81001; 83605; 83690; 83735; 84100; 84439; 84443; 85025; 85027; 86850; 86900; 86901; 88307; 93005; 94760; 96361; 96374; 96375; 99285

== ENCOUNTER → 2019-02-22 | Outpatient (CLI) | payer MEDICARE ==
--- NOTE | 2019-02-23 04:24 | BD ---
EXAMINATION TYPE: Axial Bone Density DATE OF EXAM: 02/22/2019 COMPARISON: 2017 CLINICAL HISTORY: 73-year-old female osteoporosis Height: 5'4 1/2 Weight: 166 FRAX RISK QUESTIONS: History of Fracture in Adulthood: y Secondary Osteoporosis: RISK FACTORS HISTORY OF: Surgery to /Hip(right/left)/): total hips When: 5 years, 8 years Active: n Postmenopausal woman: y MEDICATIONS: Thyroid Medications: Which medication: How Lon years Additional Medications: blood pressure, Additional History: left breast cancer radiation 1996 EXAM MEASUREMENTS: Bone mineral densitometry was performed using the [employer] System. Bone mineral density as measured about the Lumbar spine is: ----- L1-L4(G/cm2): 1.180 T Score Values are as follows: ----- L1: -2.7 ----- L2: -1.2 ----- L3: 1.4 ----- L4: 1.6 ----- L1-L4: 0.0 Bone density within the L3 and L4 vertebral body suspected to be artifactually elevated due to sclero tic endplate change. Some sclerotic endplate changes partially included on the L2 measurement. Bone mineral density has: Increased 3.5% since study of: 01/11/2017 Bone mineral density about the R Wrist (g/cm2): 0.600 T Score values are as follows: -----Dist. R+U: -1.5 -----Prox. R+U: -0.8 -----Radius total: -1.2 IMPRESSION: Suspect Osteopenia (T Score between -2.5 and -1) based on measurements at L1 and L2. Bone density gracia surements at L3 and L4 are felt to be artifactually elevated due to sclerotic endplate change. The hi ps are not assessed due to prior arthroplasties. There is slightly increased risk of fracture and the patient may be considered for treatment. Re-Screen 2-5 years. NOTE: T-SCORE=SD OF THE YOUNG ADULT MEAN.
--- NOTE | 2019-02-24 08:13 | MM ---
Reason for exam: additional evaluation requested from prior study. Last mammogram was performed 21 years ago. History: Patient history of breast cancer. Lumpectomy of the left breast. Radiation therapy of the left breast. Physical Findings: Nurse did not find any significant physical abnormalities on exam. MG 3D Diag Mammo W/Cad WOODY Bilateral CC and MLO view(s) were taken. LM, MLO with magnification, and CC with magnification view(s) were taken of the right breast. Prior study comparison: October 13, 2016, mammogram. April 15, 2016, mammogram. The breast tissue is heterogeneously dense. This may lower the sensitivity of mammography. There is a new group of left calcifications measuring 4mm in the right upper outer quadrant at middle depth. On magnification views these appear linear and round. Biopsy recommended due to linear morphology. Left post therapy change with benign appearing calcifications. Right biopsy marker. These results were verbally communicated with the patient and result sheet given to the patient on 02/22/19. ASSESSMENT: Suspicious, BI-RAD 4 RECOMMENDATION: Stereotactic core biopsy of the right breast. Called Dr. Hughes's office with mammographic findings and has scheduled an appointment for the patient for 04/13/19 at 10:[address] Linn. Biopsy scheduled for 04/14/19 at 8:00. PRELIMINARY REPORT CALLED AND FAXED TO DR. LINN ON 02/24/19.
== END | disposition home or self-care (01) ==
LOC: RADMAMWWP 14:50
PROVIDERS: ATTEND Internal Medicine
DX: R92.2 Inconclusive mammogram (principal); M81.0 Age-related osteoporosis without current pathological fracture
CPT/HCPCS: 77080; 77066; G0279; 77062

== ENCOUNTER → 2019-05-03 | Outpatient (CLI) | payer MEDICARE ==
[2019-05-03 12:17] LABS: HCT 38.5 % (34.0-46.0); HGB 11.8 gm/dL (11.4-16.0); Hypochromasia Marked; MCHC 30.8 g/dL (31.0-37.0); MCV 87.7 fL (80.0-100.0); Mean Platelet Volume 8.5; Platelet Count 241 k/uL (150-450); RBC 4.39 m/uL (3.80-5.40); RDW 12.8 % (11.5-15.5); WBC 6.8 k/uL (3.8-10.6)
[2019-05-03 12:46] LABS: Potassium 4.3 mmol/L (3.5-5.1)
== END | disposition home or self-care (01) ==
LOC: LABPAT 10:57
PROVIDERS: ATTEND Internal Medicine Clinical Cardiac Electrophysiology
DX: Z01.812 Encounter for preprocedural laboratory examination (principal); I47.1 Supraventricular tachycardia; E78.5 Hyperlipidemia, unspecified
CPT/HCPCS: 80051; 82565; 82947; 84520; 85027

== ENCOUNTER → 2019-07-13 | Outpatient (CLI) | payer MEDICARE ==
--- NOTE | 2019-07-13 14:10 | XR ---
KUB HISTORY: Kidney stone From a KUB submitted on 2 images and correlated to prior CT 02/08/2019, plain film 03/13/2015 Surgical clips are present in the right upper quadrant. There is a right double-J ureteral stent in p lace. Multiple scattered calcifications are present overlying the bilateral kidneys, largest calcific ation at the lower pole the left kidney measures approximately 9 mm, largest calcification in the rig ht kidney measures approximately 4 to 5 mm. At least 4-5 calcifications suspected within the right ki dney, 7 or 8 calcifications or more may be present in the left kidney. There is a spinal curvature, d egenerative disc disease is present in the lower spine. Postop changes are noted to the bowel in the right hemiabdomen. Bilateral hip arthroplasties are present. Indeterminate calcifications in the pelv is are noted, many are likely vascular. Postop change noted at the gastroesophageal junction. Postprocedural changes. Bilateral nephrolithiasis.
== END | disposition home or self-care (01) ==
LOC: RADXRMAIN 13:34
PROVIDERS: ATTEND Urology
DX: N20.0 Calculus of kidney (principal); Z98.890 Other specified postprocedural states
CPT/HCPCS: 74018

== ENCOUNTER → 2019-10-03 | Outpatient (CLI) | payer MEDICARE ==
[2019-10-03 12:02] LABS: Basophils % (A) 1 %; Eosinophils % (A) 1 %; HGB 12.3 gm/dL (11.4-16.0); Hypochromasia Marked; Lymphocytes # (A) 1.6 k/uL (1.0-4.8); Lymphocytes % (A) 27 %; MCH 25.7 pg (25.0-35.0); MCHC 30.7 g/dL (31.0-37.0); MCV 83.7 fL (80.0-100.0); Mean Platelet Volume 8.5; Monocytes # (A) 0.3 k/uL (0-1.0); Monocytes % (A) 5 %; Neutrophils # (A) 3.9 k/uL (1.3-7.7); Neutrophils % (A) 65 %; Platelet Count 216 k/uL (150-450); RBC 4.78 m/uL (3.80-5.40); RDW 15.5 % (11.5-15.5)
[2019-10-03 19:35] LABS: % Iron Saturation 11.72 (12.00-45.00); African American GFR (CKD) 64.7 (60.0-200.0); Albumin 4.4 g/dL (3.80-4.90); Albumin/Globulin Ratio 2.1 (1.60-3.17); Anion Gap 8.1 mmol/L (4.00-12.00); Calcium 9.3 mg/dL (8.7-10.3); Carbon Dioxide 28.9 mmol/L (21.6-31.8); Chol/HDL Ratio 2.64; Globulin 2.1 g/dL (1.6-3.3); LDL Cholesterol,Calculated 56.2 mg/dL (0.0-131.0); Non-African American GFR(CKD) 55.8 (60.0-200.0); Total Bilirubin 0.6 mg/dL (0.2-1.2); Total Protein 6.5 g/dL (6.2-8.2); VLDL Calculation 35.8 mg/dL (5.00-40.00)
[2019-10-03 21:58] LABS: Ferritin 4.6 ng/mL (10.0-291.0)
== END | disposition home or self-care (01) ==
LOC: LABWHC1 10:20
PROVIDERS: ATTEND Internal Medicine
DX: I10 Essential (primary) hypertension (principal); D50.0 Iron deficiency anemia secondary to blood loss (chronic); E03.9 Hypothyroidism, unspecified; E78.2 Mixed hyperlipidemia
CPT/HCPCS: 36415; 80053; 80061; 82728; 83540; 83550; 84443; 85025

== ENCOUNTER 2019-10-12 12:24 | Day surgery (SDC) | payer MEDICARE ==
[2019-05-12 09:21] VITALS: BMI 27.4
[~2019-10-12 12:24] MED LIST changes: -LACTATED RINGERS 1,000 ML IV SCH; +SODIUM CHLORIDE 0.9% 1,000 ML IV SCH
[2019-10-12] MEDS ORDERED: LACTATED RINGERS 1,000 ML IV SCH (12:48)
[2019-10-12] MEDS ORDERED: SODIUM CHLORIDE 0.9% 1,000 ML IV SCH (12:48)
[2019-10-12] MEDS ORDERED: SODIUM CHLORIDE 0.9% 1,000 ML IV ONE (13:01)
[2019-10-12] MEDS ORDERED: fentaNYL (PF) 50 MCG/ML 2 ML AMP ONE (16:23)
[2019-10-12] MEDS ORDERED: PROPOFOL 10 MG/ML 20 ML VIAL IV ONE (16:23)
[2019-10-12] MEDS ORDERED: diphenhydrAMINE 50 MG/ML 1 ML VIAL ONE (16:23)
[2019-10-12] MEDS ORDERED: MIDAZOLAM 2 MG/2 ML VIAL ONE (16:23)
[2019-10-12] MEDS ORDERED: HEPARIN SODIUM,PORCINE 5,000 UNIT/ML 1 ML VIAL ONE (16:23)
--- NOTE | 2019-10-12 16:30 | P.HPCAR ---
History of Present Illness This is Dr. Nicholas dictating an H/P on this patient The patient was interviewed and examined IMPRESSION / ASSESSMENT: Recurrent palpitations Short RP SVT, adenosine sensitive SVT, consistent with AV epi reentry Refractory to a combination of beta blockers and calcium channel blockers Hypertension Kidney stones Chronic hypokalemia in the past Kidney stone removal in the past PLAN: Diagnoses EP study and efficacy ablation of short RP tachycardia, SVT Stop Cardizem and bisoprolol thereafter and start awilda inhibitors and combination diuretics with potassium sparing diuretic Stop oral potassium HPI Recurrent palpitations Most recent one a few days back while walking. Associated with dizziness No loss of consciousness Denies any chest discomfort Denies any fever chills cough expectoration or any GI symptoms ROS: No fever chills or rigors, no cough, phlegm or expectoration, no nausea, vomiting or diarrhea, no hematuria, dysuria, no musculoskeletal complaints, no strokes or seizures, no skin lesions. EXAMINATION: 132/77 mmHg normal respirations pulse rate in the 70s afebrile Breath sounds are clear no rhonchi no crackles Heart sounds S1 and S2 are normal no murmurs or gallops or rub appropriate no JVD Abdomen soft nontender No lower extremity edema REVIEW OF LABS, ECG & MEDICAL DATA BUN 15 creatinine 1.0 Potassium 5.0 and sodium 143 Hemoglobin 12.3 Medications reviewed She is on atorvastatin bisoprolol hydrochlorothiazide, Cardizem CD oral potassium and Synthroid Physical Exam Vitals: Vital Signs Temp Pulse Resp BP Pulse Ox 10/12/19 13:13 98 F 84 16 132/77 98 Intake and Output 10/12/19 10/12/19 10/12/19 06:59 14:59 22:59 Intake Total 100 Balance 100 Intake: IV 100 Other: Weight 72.9 kg Past Medical History Past Medical History: Cancer, GERD/Reflux, Hyperlipidemia, Hypertension, Osteoarthritis (OA), Pneumonia, Thyroid Disorder Additional Past Medical History / Comment(s): L breast cancer with lumpectomy/radiation, UTI,SEE DR NICHOLAS'S HISTORY AND PHYSICAL FOR CARDIAC HISTORY , kidney stones, chronic hypokalemia, hypothyroid, iron deficiency anemia, sinus problems, R upper arm varicosity, arthritis in R hand and neck, osteopenia. History of Any Multi-Drug Resistant Organisms: None Reported Past Surgical History: Appendectomy, Bowel Resection, Breast Surgery, Cholecystectomy, Hysterectomy, Joint Replacement, Orthopedic Surgery, Tonsillectomy Additional Past Surgical History / Comment(s): open cholecystectomy many years ago, aidan hip replacements, low back surgery, L hand tendon surgery, cystoscopies, kidney stone removal (lithotripsy/stents-all out now), L breast lumpectomy, bilateral cataract surgery with lens implants, colonoscopies, Migel fundoplication.RIGHT BREAST-LUMPECTOMY Past Anesthesia/Blood Transfusion Reactions: Postoperative Nausea & Vomiting (PONV) Smoking Status: Never smoker - Past Family History Mother Family Medical History: Cancer Additional Family Medical History / Comment(s): Mother had pancreatic cancer. She of this in her early 70s. Daughter(s) Family Medical History: Cancer Additional Family Medical History / Comment(s): Patient has 2 daughters and one of her daughters is BRCA gene positive. Daughter had colon cancer. Son(s) Family Medical History: No Reported History Additional Family Medical History / Comment(s): Patient has one son with no major medical problems. Sister(s) Family Medical History: Cancer Additional Family Medical History / Comment(s): Patient has 2 sisters with thyroid disease and one with breast cancer. Father Family Medical History: Myocardial Infarction (IA) Additional Family Medical History / Comment(s): Father at the age of 52 yrs from a IA. He was a smoker. Physical Examination Vital Signs Temp Pulse Resp BP Pulse Ox 10/12/19 13:13 98 F 84 16 132/77 98 Intake and Output 10/12/19 10/12/19 10/12/19 06:59 14:59 22:59 Intake Total 100 Balance 100 Intake: IV 100 Other: Weight 72.9 kg Results Current Medications Generic Name Dose Route Start Last Admin Trade Name Freq PRN Reason Stop Dose Admin Sodium Chloride 1,000 mls @ 50 mls/hr 05/15/19 05:56 Saline 0.9% IV .Q20H REYES Lactated Ringer's 1,000 mls @ 20 mls/hr 05/15/19 05:56 Lactated Ringers IV .Q24H REYES Lactated Ringer's 1,000 mls @ 20 mls/hr 10/12/19 12:48 Lactated Ringers IV .Q24H REYES Sodium Chloride 1,000 mls @ 20 mls/hr 10/12/19 12:48 Saline 0.9% IV .Q24H REYES Intake and Output 10/12/19 10/12/19 10/12/19 06:59 14:59 22:59 Intake Total 100 Balance 100 Intake: IV 100 Other: Weight 72.9 kg Patient Weight 10/13/19 06:59 Weight 72.9 kg
[2019-10-12] MEDS ORDERED: LIDOCAINE 1% INJ 10MG/ML (20 ML MDV) ONE (16:33)
[2019-10-12] MEDS ORDERED: LIDOCAINE 1% INJ 10MG/ML (20 ML MDV) SQ ONE (16:50)
[2019-10-12] MEDS ORDERED: HEPARIN SODIUM (1,000 UNIT/ML) 1,000 UNIT in SODIUM CHLORIDE 0.9% 1,000 ML IRRIGATION ONE (17:00)
--- NOTE | 2019-10-12 20:36 | P.PCN ---
Preoperative Diagnosis: Increase procedural services Patient had AV node reentry that was refractory to ablation despite several are a very detailed mapping of the right with inferior extension, leftward inferior extension, around the coronary sinus os and the roof and within the coronary sinus as well as transseptal in the left atrium along the inferolateral left atrial slow pathway area. 04 hours of mapping and ablation was performed but without any success despite very detailed mapping and ablating in areas with a recent response.
[2019-10-12] MEDS ORDERED: ACETAMINOPHEN TAB 325 MG TAB PO PRN (20:37)
[2019-10-12] MEDS ORDERED: ALPRAZolam 0.25 MG TAB PO PRN (20:37)
[2019-10-12] MEDS ORDERED: HYDROcodone/APAP 5-325MG 1 EACH TAB PO PRN (20:37)
[2019-10-12] MEDS ORDERED: ACETAMINOPHEN IV (For NPO) 1,000 MG in EMPTY BAG 1 BAG IVPB ONE (20:37)
[2019-10-12] MEDS ORDERED: ASPIRIN 325 MG TAB PO STA (20:58)
[2019-10-12] MEDS: DILTIAZEM CD 180 MG CAP.ER.24H PO SCH ×2 (21:47→21:56)
[2019-10-12] MEDS: LACTATED RINGERS 1,000 ML IV SCH (21:56)
--- NOTE | 2019-10-12 22:25 | PCN ---
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 These episodes make her dizzy. She was brought in for diagnostic EP study and radiofrequency ablation. Patient was brought to the EP lab in a fasting state. Written informed consent was obtained prior to the procedure. The right and left groins were prepped and draped as per protocol. Venous sheaths were placed in the right and left femoral veins, and via these diagnostic catheters were positioned in the high right atrium, His bundle area, right ventricle and coronary sinus. Her IVC was quite tortuous and the coronary sinus was somewhat posterior in its anatomical location and required some manipulation of the catheter to place it in the coronary sinus. Sinus cycle length 691 milliseconds, GA interval 180 milliseconds, QRS 99 milliseconds, QT 395 milliseconds, AH interval 61 milliseconds, HV interval 58 milliseconds. Sinus node recovery times at 600, 500 and 400 milliseconds were 1055 milliseconds, 1021 and 1316 milliseconds. Corresponding corrected sinus node recovery times were mildly prolonged only at a paced cycle length of 400 milliseconds. AV node Wenckebach block was tested on straight pacing. AV martir re-entry was very easily inducible. Onset was with a long GA interval and the septal times were very short. Of note, the mid to distal coronary sinus area had a septal time of 0. Entrainment was attempted from the right ventricle, but this repeatedly resulted in termination of the tachycardia and we could not entrain the tachycardia from the right ventricle. However, the patient had a martir response to His bundle pacing. There was no evidence for accessory pathway conduction. Initially the conduction was concentric during sinus rhythm in the coronary sinus poles. However, at the end of the procedure on account of the multiple ablations performed at the coronary sinus os, roof and in the mid coronary sinus roof, the activation pattern reversed. This was a result of the ablations rather than a second arrhythmia. Following that, the patient had just spontaneous episodes of AV martir reentry. It would start with a long GA interval and have a very short septal time. Therefore an RF ablation catheter was placed along with a long sheath and the slow pathway area was mapped. Three-dimensional electroanatomic mapping was performed. The His bundle was mapped. Coronary sinus os was identified and mapped. Coronary sinus roof was mapped and the body of the coronary sinus was mapped. The tricuspid anulus was tagged. Following that, AV martir re-entry was induced and the reset response was tested and the tachycardia could be advanced from two sites, one from the rightward inferior extension, the common area for slow pathway, and outside the roof of the coronary sinus. In both these sites, we were able to advance with PACs delivered 5-10ms before the His spike at these sites during the tachycardia. RF ablation was applied with a 4 mm tip ablation catheter in the rightward inferior extension area just anterior to the coronary sinus and somewhat below it. Junctional rhythm was obtained at each ablation here at this site with resumption of sinus rhythm thereafter. This area was completely ablated and no junctional rhythm could be obtained at the end of this part of the procedure. However, AV martir reentry was very easily inducible and there was no change in the cycle length of the AV martir reentry. Therefore, slow pathway mapping was continued and the coronary sinus os and the roof of the coronary sinus and just inside the coronary sinus roof area was mapped. RF ablation was applied here since the recent response was positive in this area. However, no junctional rhythm was obtained and the tachycardia was still very easily inducible. Thereafter we switched to a different sheath and an irrigated RF ablation catheter. RF ablation was applied once again with an irrigated-tip catheter in the rightward inferior extension area as well as just outside the coronary sinus at the floor as well as at the roof and just inside the roof of the coronary sinus with an irrigated- tip catheter. Good power and good temperature were achieved, but there was no junctional rhythm and the tachycardia was still very easily inducible. Therefore, mapping within the coronary sinus in the leftward inferior extension area within the roof of the coronary sinus was mapped and RF ablation was applied here. No junctional rhythm was obtained. A complete lesion set was applied here, but the tachycardia remained inducible at its same cycle length. Following that, the decision was made to perform a transseptal catheterization and access the left atrium to target the inferolateral left atrial slow pathway area. The mid coronary sinus poles had a VA time of 0 milliseconds. [id number] transseptal catheterization was performed. RA pressure was normal. LA pressure was within normal limits. Sheath was placed in the left atrium and the irrigated-tip catheter was placed in the left atrium and the slow pathway area, inferolateral left atrial, was mapped and RF ablation was applied here. No junctional rhythm was obtained and the tachycardia was still very easily inducible without any change in its cycle length. RF ablation was then applied along the septal aspect above the coronary sinus os in the left atrium, more septally, in juxtaposition to the ablations that were applied within the coronary sinus roof, but the tachycardia remained inducible. At this point, we had demonstrated that: 1. The patient had a martir response to His bundle pacing. 2. That she had AV martir reentry. 3. We were able to reset the tachycardia from the rightward inferior extension as well as from outside the coronary sinus os near the roof. 4. RF ablation in the common slow pathway area the rightward with inferior extension area resulted in lots of junctional rhythm and the area was completely ablated and no further junctional rhythm was noted thereafter, but the tachycardia was still inducible. 5. Mapping and ablation outside the coronary sinus roof, within the coronary sinus roof, deeper within the coronary sinus in the leftward inferior extension area was mapped and ablated, but the tachycardia continued. 6. The left atrium was accessed transseptally and the inferolateral left atrial slow 7. Reversal of CS activation in sinus rhythm noted after CS ablation The slow pathway area was mapped and ablated, but the tachycardia continued. Following that, the catheter was withdrawn from the left atrium and the usual slow pathway area was once again mapped. RF ablation was applied with good power and good temperature, but junctional rhythm could not be induced and the tachycardia remained inducible at its similar cycle length. Therefore, the ablation catheter was placed between the His bundle area and the area where we obtained lots of junctional rhythm beats, and RF ablation was applied here. No junctional rhythm was obtained. The tachycardia was still inducible, but at a much slower cycle length. However, this was millimeters below the His bundle tags. At this point, a decision was made not to ablate any further because of now increased risk of AV block if we were to head towards the His bundle area or the anterosuperior area on the other side of the . Therefore all catheters were then removed and the patient was transferred back to telemetry. She did receive heparin through the procedure. RESULT: Diagnostic EP study revealin. Martir response to parahisian pacing. 2. Very easily inducible AV martir reentry, both with minimal pacing as well as spontaneously. 3. Reset response and advancement of the tachycardia demonstrated from the rightward inferior extension area as well as outside the roof of the coronary sinus. RF ablation here resulted in appearance of junctional rhythm. There was a considerable amount of junctional rhythm seen with resumption of sinus rhythm , but despite that the tachycardia remained inducible. 4. The rightward inferior extension area was mapped and ablated, the coronary sinus floor just outside the roof as well as just within the roof was ablated without success. 5. The leftward inferior extension area was ablated without success. 6. The left atrium was accessed transseptally and the inferolateral left atrial slow pathway area was ablated without success. 7. Reversal of CS activation in sinus rhythm noted after CS ablation Slowing of the tachycardia cycle length was noted only when ablation was performed midway between the His bundle area and the rightward inferior extension area. No further ablations were performed because of increased risk of AV block at this point. All catheters were removed and patient was transferred to telemetry. She tolerated the procedure well without any acute complications. PLAN: Continue AV martir-blocking drugs for now, and if she continues to have breakthrough episodes, then permanent pacing should be considered along with ablation lesion sets closer to the His bundle area to eliminate the tachycardia. MMODL / IJN: [id number] / ABBY
[2019-10-13] MEDS ORDERED: LEVOTHYROXINE 25 MCG TAB PO SCH (06:30)
[2019-10-13] MEDS ORDERED: PANTOPRAZOLE 40 MG TABLET PO SCH (07:30)
--- NOTE | 2019-10-13 07:53 | P.DS ---
Providers Attending physician: Mukund Nicholas Primary care physician: [facility] Course: Patient is doing well. She denies any chest discomfort dizziness lightheadedness or palpitations Her groins of healed well Breath sounds are clear no rhonchi no crackles Normal heart sounds No JVD no hematoma and no lower extremity edema Twelve-lead ECG shows sinus rhythm with a normal [place] interval narrow QRS and nonspecific ST-T abnormalities Impression AV epi reentry that was refractory to ablations in the right inferior extension area, left inferior extension area and the left lateral extension area Slow pathway was modified in the region between the His bundle and the right inferior extension area with slowing of the tachycardia Increase risk of AV block if further ablations applied in the mid septal region, hence no further ablations applied in this region and this is discussed with patient and her daughter Hypertension Plan Continue Cardizem and Ziac Maximize medical treatment if needed If this fails And she continues to have dizzy spells and palpitations then permanent pacing should be considered with biventricular pacing This would be then followed by ablation of the slow pathway closer to the His bundle area and excepting an increased risk of AV block Aspirin 325 mg by mouth daily for one month then stop Followed for depression within one to 2 weeks Plan - Discharge Summary Discharge Rx Participant: Yes New Discharge Prescriptions: Discontinued RX: Diltiazem Cd [Cardizem CD] 180 mg PO W/SUPPER RX: Potassium Chloride ER [K-Dur 10] 10 meq PO W/SUPPER RX: Bisoprol/Hydrochlorothiazide [Ziac 5-6.25 MG] 1 tab PO DAILY No Action RX: Venlafaxine HCl ER [Effexor XR] 150 mg PO W/SUPPER RX: Omeprazole [PriLOSEC] 20 mg PO AC-BRKFST RX: ALPRAZolam [Xanax] 0.25 mg PO QID PRN PRN Reason: Anxiety RX: Cholecalciferol [Vitamin D3 (25 Mcg = 1000 Iu)] 1,000 unit PO W/SUPPER RX: Atorvastatin [Lipitor] 10 mg PO W/SUPPER RX: HYDROcodone/APAP 10-325MG [[place] 10-325] 1 tab PO BID PRN PRN Reason: Pain RX: Propylene Glycol [Systane Complete] 1 drop BOTH EYES DAILY RX: Vitamin B Complex 1 cap PO DAILY RX: Cetirizine HCl [Zyrtec] 10 mg PO DAILY RX: Calcium Carbonate/Vitamin D3 [Caltrate 600 Plus D3 Tablet] 1 tab PO DAILY RX: Levothyroxine Sodium [Synthroid] 25 mcg PO DAILY RX: Fluticasone Nasal [place] [Flonase Nasal [place]] 1 spray EA NOSTRIL DAILY PRN PRN Reason: Allergy Symptoms Discharge Medication List RX: Venlafaxine HCl ER [Effexor XR] 150 mg PO W/SUPPER 09/17/13 [History] RX: ALPRAZolam [Xanax] 0.25 mg PO QID PRN 02/04/15 [History] RX: Cholecalciferol [Vitamin D3 (25 Mcg = 1000 Iu)] 1,000 unit PO W/SUPPER 02/04/15 [History] RX: Omeprazole [PriLOSEC] 20 mg PO AC-BRKFST 02/04/15 [History] RX: Atorvastatin [Lipitor] 10 mg PO W/SUPPER 02/10/18 [History] RX: HYDROcodone/APAP 10-325MG [[place] 10-325] 1 tab PO BID PRN 02/10/18 [History] RX: Calcium Carbonate/Vitamin D3 [Caltrate 600 Plus D3 Tablet] 1 tab PO DAILY 02/08/19 [History] RX: Cetirizine HCl [Zyrtec] 10 mg PO DAILY 02/08/19 [History] RX: Fluticasone Nasal [place] [Flonase Nasal [place]] 1 spray EA NOSTRIL DAILY PRN 02/08/19 [History] RX: Levothyroxine Sodium [Synthroid] 25 mcg PO DAILY 02/08/19 [History] RX: Propylene Glycol [Systane Complete] 1 drop BOTH EYES DAILY 02/08/19 [History] RX: Vitamin B Complex 1 cap PO DAILY 02/08/19 [History] Follow up Appointment(s)/Referral(s): Mukund Nicholas MD [STAFF PHYSICIAN] - 1 Week (Follow-up with Dr. Nicholas/Daysi Brennan/Mel Restrepo within one to 2 weeks Follow-up with Dr. Nicholas in 6-8 weeks) Activity/Diet/Wound Care/Special Instructions: Post EP study - Ablation instructions 1. Keep access sites dry for 2 days. 2. No heavy lifting or straining for 2 days. 3. Avoid bending the hips repeatedly for 2 days. 4. You may go up and down stairs slowly Call if the following is noted 1. Bleeding, increasing swelling or pain at the access sites. 2. Increasing chest discomfort, especially upon taking a deep breath. 3. Increasing shortness of breath, at rest or with exertion. 4. Undue cough / phlegm 5. Difficulty or pain while swallowing. 6. Pain or change in color in the extremities. 7. Fever, chills, rigors. 8. Increasing headache or neurologic symptoms. 9. Dizziness, fainting, palpitations
[2019-10-13 08:01] VITALS: BP 131/68; PULSE 87; RESP 18; TEMP 97
[2019-10-13] MEDS ORDERED: VENLAFAXINE HCL ER 150 MG CAP PO STA (08:05)
[2019-10-13] MEDS ORDERED: BISOPROLOL-HCTZ 5-6.25 MG 1 EACH TAB PO SCH (09:00)
[2019-10-13] MEDS ORDERED: LORATADINE 10 MG TAB PO SCH (09:00)
[2019-10-13] MEDS ORDERED: COLCHICINE 0.6 MG EACH PO SCH (09:00)
[2019-10-13] MEDS: LACTATED RINGERS 1,000 ML IV SCH (09:03)
[2019-10-13] MEDS ORDERED: ATORVASTATIN 10 MG TAB PO SCH (17:30)
== END 2019-10-13 10:19 | disposition home or self-care (01) ==
LOC: CATHEP 12:24 → 1SOBS 19:58 → CATHEP 10-13 10:19
PROVIDERS: ATTEND Internal Medicine Clinical Cardiac Electrophysiology
DX: I47.1 Supraventricular tachycardia (principal); I10 Essential (primary) hypertension; Z87.442 Personal history of urinary calculi; E87.6 Hypokalemia; K21.9 Gastro-esophageal reflux disease without esophagitis; E03.9 Hypothyroidism, unspecified; E78.5 Hyperlipidemia, unspecified; F32.9 Major depressive disorder, single episode, unspecified; I86.8 Varicose veins of other specified sites; Z87.01 Personal history of pneumonia (recurrent); Z85.3 Personal history of malignant neoplasm of breast; Z92.3 Personal history of irradiation; M85.80 Other specified disorders of bone density and structure, unspecified site; M19.041 Primary osteoarthritis, right hand; M47.812 Spondylosis without myelopathy or radiculopathy, cervical region; Z87.440 Personal history of urinary (tract) infections; Z87.19 Personal history of other diseases of the digestive system; Z86.2 Personal history of diseases of the blood and blood-forming organs and certain disorders involving the immune mechanism; Z90.49 Acquired absence of other specified parts of digestive tract; Z90.710 Acquired absence of both cervix and uterus; Z96.643 Presence of artificial hip joint, bilateral; Z98.42 Cataract extraction status, left eye; Z98.41 Cataract extraction status, right eye; Z96.1 Presence of intraocular lens; Z98.890 Other specified postprocedural states; Z80.8 Family history of malignant neoplasm of other organs or systems; Z80.0 Family history of malignant neoplasm of digestive organs; Z80.3 Family history of malignant neoplasm of breast; Z83.49 Family history of other endocrine, nutritional and metabolic diseases; Z82.49 Family history of ischemic heart disease and other diseases of the circulatory system; Z79.890 Hormone replacement therapy; Z79.899 Other long term (current) drug therapy; Z88.0 Allergy status to penicillin
CPT/HCPCS: 93613; 93653; C1894; C1769 ×3; C1730 ×2; C1732 ×2; C1893; J2250; J1200; J1644 ×2; J2001; J3010; J0131

== ENCOUNTER → 2020-06-27 | Outpatient (CLI) | payer MEDICARE ==
--- NOTE | 2020-06-27 11:12 | FL ---
EXAMINATION TYPE: FL barium swallow DATE OF EXAM: 06/27/2020 CLINICAL HISTORY: History of hiatal hernia repair long time ago per patient with dysphasia, epigastri c pain, reflux-like symptoms, burping. TECHNIQUE: A double contrast esophagram is performed utilizing air and barium. A total of 1.03 yusra gibson of fluoroscopic time was utilized during procedure and 71 images obtained COMPARISON: Prior CT abdomen and pelvis February 08, 2019 and abdominal x-ray July 13, 2019 FINDINGS: The esophagus shows normal motility with poor transit to colon and abnormal secondary and t ertiary contractions. No focal stricturing or diverticulum. Surgical change at and just below the bebe phragmatic hiatus from prior hernia repair surgery redemonstrated. Stable small recurrent hiatal cherelle ia correlates with most recent CT. Perhaps mild narrowing just below diaphragm. Tiny right adjacent p araesophageal hernia correlates with coronal image 56. Episodes of reflux from distal esophagus into proximal to mid esophagus noted. Cholecystectomy clips incidentally seen. IMPRESSION: Moderate to severe underlying dysmotility. Recurrent small to moderate size hiatal herni a better appreciated on most recent CT.
== END | disposition home or self-care (01) ==
LOC: RADUSWWP 09:55
PROVIDERS: ATTEND Internal Medicine
DX: K44.9 Diaphragmatic hernia without obstruction or gangrene (principal)
CPT/HCPCS: 74220

== ENCOUNTER → 2020-07-29 | Outpatient (CLI) | payer MEDICARE ==
--- NOTE | 2020-07-29 14:33 | XR ---
EXAMINATION TYPE: XR KUB DATE OF EXAM: 07/29/2020 COMPARISON: 07/13/2019 HISTORY: Pain TECHNIQUE: One view abdominal series FINDINGS: The osseous structures are intact. The bowel gas pattern is nonspecific. Postsurgical changes are se en. Right kidney: There are 2 calcifications overlying the mid and lower pole measuring approximately 3.5 mm. Left kidney: There are approximately 5 calcifications overlying the upper and lower pole the left kid kye measuring approximately 3 mm in greatest dimension. Hypertrophic and degenerative change of the spine. Atherosclerotic change involving the aorta. Bilate ral hip prostheses are noted. There are calcifications in the left hemipelvis stable from the prior e xam. Ureteral stent is no longer identified. There are 2 somewhat linear calcifications in the right hemipelvis which are nonspecific. IMPRESSION: 1. Bilateral nephrolithiasis as measured above. 2. Linear calcification right hemipelvis clearly depicted on prior exam. Potentially could be within the right ureter. Measures approximately 1.5 mm in diameter. 3. Postsurgical changes.
== END | disposition home or self-care (01) ==
LOC: RADXRMAIN 14:04
PROVIDERS: ATTEND Internal Medicine
DX: N20.0 Calculus of kidney (principal)
CPT/HCPCS: 74018

== ENCOUNTER 2021-02-21 22:42 | Emergency (ER) | payer MEDICARE ==
[2021-02-21] MEDS ORDERED: HYDROmorphone 0.5 MG/0.5 ML SYRINGE IVP STA (23:17)
[2021-02-21] MEDS ORDERED: SODIUM CHLORIDE 0.9% 1,000 ML IV STA (23:17)
[2021-02-21] MEDS ORDERED: KETOROLAC 15 MG/ML 1 ML VIAL IVP STA (23:17)
[2021-02-21] MEDS ORDERED: ONDANSETRON 4 MG/2 ML VIAL IVP STA (23:17)
[2021-02-21 23:59] LABS: Basophils % (A) 0 %; Eosinophils # (A) 0.1 k/uL (0-0.7); Eosinophils % (A) 1 %; HCT 40.4 % (34.0-46.0); HGB 13.1 gm/dL (11.4-16.0); Lymphocytes # (A) 1.1 k/uL (1.0-4.8); Lymphocytes % (A) 17 %; MCH 30.2 pg (25.0-35.0); MCHC 32.4 g/dL (31.0-37.0); MCV 93.1 fL (80.0-100.0); Mean Platelet Volume 8.9; Monocytes # (A) 0.4 k/uL (0-1.0); Monocytes % (A) 6 %; Neutrophils # (A) 4.5 k/uL (1.3-7.7); Neutrophils % (A) 74 %; Platelet Count 129 k/uL (150-450); RBC 4.34 m/uL (3.80-5.40); RDW 13.6 % (11.5-15.5); WBC 6.1 k/uL (3.8-10.6)
[2021-02-22 00:03] LABS: Appearance,Urine Clear (Clear); Bacteria,Urine Rare /hpf; Bilirubin,Urine Negative (Negative); Blood,Urine Large (Negative); Color,Urine Yellow; Glucose,Urine (UA) Negative (Negative); Ketones,Urine Negative (Negative); Leukocyte Esterase,Urine Negative (Negative); Mucus,Urine Rare /hpf; Nitrite,Urine Negative (Negative); Protein,Urine Trace (Negative); RBC,Urine 49 /hpf (0-5); Specific Gravity,Urine 1.016 (1.001-1.035); Squamous Epithelial Cell,Urine 1 /hpf (0-4); Urobilinogen,Urine <2.0 mg/dL (<2.0); WBC,Urine 6 /hpf (0-5)
[2021-02-22 00:24] LABS: Albumin 4.2 g/dL (3.5-5.0); Calcium 8.7 mg/dL (8.4-10.2); Potassium 4.6 mmol/L (3.5-5.1); Total Bilirubin 1.1 mg/dL (0.2-1.3); Total Protein 7.4 g/dL (6.3-8.2)
--- NOTE | 2021-02-22 00:25 | CT ---
EXAMINATION TYPE: CT abdomen pelvis wo con DATE OF EXAM: 02/21/2021 COMPARISON: 02/08/2019 HISTORY: Right Flank Pain CT DLP: 535.50 mGycm Automated exposure control for dose reduction was used. Images obtained without contrast from the diaphragm to the floor the pelvis. Lung bases are clear. There is no pleural effusion. There is mild hiatal hernia. There is previous lopez rgery at the gastroesophageal junction. Heart size is fairly normal. There are clips from cholecystectomy. Liver spleen pancreas appear intact. The bile ducts are not dil ated. There is no adrenal mass. There are multiple bilateral renal calculi. There is moderate right-sided h ydronephrosis. There is 4 mm calculus in the right ureteral pelvic junction. Distal right ureter obsc ured by metal artifact from bilateral hip surgery. There are vascular calcifications in the pelvis. I t is not clear if there is a calculus in the distal right ureter. Right ureter is mildly ectatic. The left ureter has normal size and contour. There is no retroperitoneal adenopathy. Urinary bladder is intact. There is no inguinal hernia. There is no free fluid in the pelvis. There are sigmoid divertic sharmaine. There is no diverticulitis. There is previous surgery at the cecum. There is no mesenteric edema. There is no ascites or free air. There is no bowel obstruction. The lum bar spine shows a slight levoscoliosis. There is degenerative disc space narrowing at L2-3 and L3-4 w ith spurring and sclerosis. The bony pelvis is intact. IMPRESSION: Numerous bilateral renal calculi. Right side hydronephrosis with calculus at the right ureteropelvic junction which is probably producing obstruction. Obstruction appears new compared to old exam. No si gn of obstruction on the left side. Previous right colon surgery. No bowel obstruction.
[2021-02-22] MEDS ORDERED: HYDROmorphone 1 MG/ML 1 ML SYRINGE IVP STA (00:46)
[2021-02-22 01:10] VITALS: RESP 18
[2021-02-22] MEDS ORDERED: TAMSULOSIN 0.4 MG CAP.ER.24H PO STA (01:31)
--- NOTE | 2021-02-22 01:34 | ED ---
Back Pain HPI - General Chief Complaint: Back Pain/Injury Stated Complaint: Kidney Stone Time Seen by Provider: 02/21/21 22:56 Source: patient Limitations: no limitations - History of Present Illness Initial Comments: 75-year-old female patient presents to the emergency department today for evaluation of right flank pain, nausea. Patient states she does have history of kidney stones this does feel similar. She denies any fever or chills. Denies constipation or diarrhea. Denies any hematuria, dysuria, urinary frequency, urinary urgency. She did have a bowel surgery about a year ago. Patient denies any recent rash, fever, chills, cough, shortness of breath, chest pain, diarrhea, constipation, numbness, tingling, dizziness, weakness, headache, visual changes, or any other complaints. - Related Data Home Medications Medication Instructions Recorded Confirmed Venlafaxine HCl ER [Effexor XR] 150 mg PO W/SUPPER 09/17/13 10/12/19 ALPRAZolam [Xanax] 0.25 mg PO QID PRN 02/04/15 10/12/19 Cholecalciferol [Vitamin D3 (25 1,000 unit PO W/SUPPER 02/04/15 10/12/19 Mcg = 1000 Iu)] Omeprazole [PriLOSEC] 20 mg PO AC-BRKFST 02/04/15 10/12/19 Atorvastatin [Lipitor] 10 mg PO W/SUPPER 02/10/18 10/12/19 HYDROcodone/APAP 10-325MG [[place] 1 tab PO BID PRN 02/10/18 10/12/19 10-325] Calcium Carbonate/Vitamin D3 1 tab PO DAILY 02/08/19 10/12/19 [Caltrate 600 Plus D3 20 Mcg (800 Iu)] Cetirizine HCl [Zyrtec] 10 mg PO DAILY 02/08/19 10/12/19 Fluticasone Nasal [place] [Flonase 1 spray EA NOSTRIL DAILY PRN 02/08/19 10/12/19 Nasal [place]] Levothyroxine Sodium [Synthroid] 25 mcg PO DAILY 02/08/19 10/12/19 Propylene Glycol [Systane Complete] 1 drop BOTH EYES DAILY 02/08/19 10/12/19 Vitamin B Complex 1 cap PO DAILY 02/08/19 10/12/19 Previous Rx's Medication Instructions Recorded Tamsulosin HCl [Flomax] 0.4 mg PO DAILY #7 cap 02/22/21 oxyCODONE-APAP 5-325MG [Percocet 1 tab PO Q6HR PRN 3 Days #12 tab 02/22/21 5-325 mg] Allergies Allergy/AdvReac Type Severity Reaction Status Date / Time amoxicillin trihydrate Allergy Rash/Hives Verified 10/12/19 12:49 [From Augmentin] Penicillins Allergy Rash/Hives Verified 10/12/19 12:49 potassium clavulanate Allergy Rash/Hives Verified 10/12/19 12:49 [From Augmentin] Review of Systems ROS Statement: Those systems with pertinent positive or pertinent negative responses have been documented in the HPI. ROS Other: All systems not noted in ROS Statement are negative. Past Medical History Past Medical History: Cancer, GERD/Reflux, Hyperlipidemia, Hypertension, Os teoarthritis (OA), Pneumonia, Thyroid Disorder Additional Past Medical History / Comment(s): L breast cancer with lumpectomy/radiation, UTI,SEE DR DAY'S HISTORY AND PHYSICAL FOR CARDIAC HISTORY , kidney stones, chronic hypokalemia, hypothyroid, iron deficiency anemia, sinus problems, R upper arm varicosity, arthritis in R hand and neck, osteopenia. History of Any Multi-Drug Resistant Organisms: None Reported Past Surgical History: Appendectomy, Bowel Resection, Breast Surgery, Cholecystectomy, Hysterectomy, Joint Replacement, Orthopedic Surgery, Tonsillectomy Additional Past Surgical History / Comment(s): open cholecystectomy many years ago, aidan hip replacements, low back surgery, L hand tendon surgery, cystoscopies, kidney stone removal (lithotripsy/stents-all out now), L breast lumpectomy, bilateral cataract surgery with lens implants, colonoscopies, Migel fundoplication.RIGHT BREAST-LUMPECTOMY Past Anesthesia/Blood Transfusion Reactions: Postoperative Nausea & Vomiting (PONV) Past Psychological History: Anxiety, Depression Smoking Status: Never smoker Past Alcohol Use History: None Reported Past Drug Use History: None Reported - Past Family History Mother Family Medical History: Cancer Additional Family Medical History / Comment(s): Mother had pancreatic cancer. She of this in her early 70s. Daughter(s) Family Medical History: Cancer Additional Family Medical History / Comment(s): Patient has 2 daughters and one of her daughters is BRCA gene positive. Daughter had colon cancer. Son(s) Family Medical History: No Reported History Additional Family Medical History / Comment(s): Patient has one son with no major medical problems. Sister(s) Family Medical History: Cancer Additional Family Medical History / Comment(s): Patient has 2 sisters with thyroid disease and one with breast cancer. Father Family Medical History: Myocardial Infarction (ME) Additional Family Medical History / Comment(s): Father at the age of 52 yrs from a ME. He was a smoker. General Exam Limitations: no limitations General appearance: alert, in no apparent distress, other (This is a well- developed, well-nourished elderly female patient in no acute distress.) ENT exam: Present: normal exam, normal oropharynx, mucous membranes moist Respiratory exam: Present: normal lung sounds bilaterally. Absent: respiratory distress, wheezes, rales, rhonchi, stridor Cardiovascular Exam: Present: regular rate, normal rhythm, normal heart sounds. Absent: systolic murmur, diastolic murmur, rubs, gallop, clicks GI/Abdominal exam: Present: soft, tenderness (Right upper quadrant), normal bowel sounds. Absent: distended, guarding, rebound, rigid Back exam: Present: normal inspection, CVA tenderness (R). Absent: CVA tenderness (L) Neurological exam: Present: alert, oriented X3, CN II-XII intact Psychiatric exam: Present: normal affect, normal mood Skin exam: Present: warm, dry, intact, normal color. Absent: rash Course Vital Signs 02/21/21 02/22/21 02/22/21 22:51 01:00 01:40 Temperature 99.3 F 98.9 F Pulse Rate 78 72 74 Respiratory 20 18 18 Rate Blood Pressure 150/91 119/71 124/68 O2 Sat by Pulse 96 96 98 Oximetry Medical Decision Making - Medical Decision Making 75-year-old female patient presents to the emergency department today for evaluation of right flank pain. Physical examination reveals right upper quadrant tenderness. Right CVA tenderness. Labs reviewed and revealed normal white blood cell count is 6.1. Sodium is 134, BUN 19. Urinalysis did show 49 red blood cells, 6 white blood cells, rare bacteria. She'll be discharged to follow-up with the urologist, she has appointment on Wednesday. She does take [place] at home which is not helping her pain so I did give her a short course of Percocet for this acute pain syndrome. Is also given Flomax. Return parameters were discussed in detail. She verbalizes understanding and agrees with this plan. My attending is Dr. Mayes. - Lab Data Result diagrams: 02/21/21 23:57 02/21/21 23:40 Lab Results 02/21/21 02/21/21 02/21/21 Range/Units 23:40 23:40 23:40 WBC (3.8-10.6) k/uL RBC (3.80-5.40) m/uL Hgb (11.4-16.0) gm/dL Hct (34.0-46.0) % MCV (80.0-100.0) fL MCH (25.0-35.0) pg MCHC (31.0-37.0) g/dL RDW (11.5-15.5) % Plt Count (150-450) k/uL MPV Neutrophils % % Lymphocytes % % Monocytes % % Eosinophils % % Basophils % % Neutrophils # (1.3-7.7) k/uL Lymphocytes # (1.0-4.8) k/uL Monocytes # (0-1.0) k/uL Eosinophils # (0-0.7) k/uL Basophils # (0-0.2) k/uL Sodium 134 L (137-145) mmol/L Potassium 4.6 (3.5-5.1) mmol/L Chloride 104 (98-107) mmol/L Carbon Dioxide 21 L (22-30) mmol/L Anion Gap 9 mmol/L BUN 19 H (7-17) mg/dL Creatinine 0.89 (0.52-1.04) mg/dL Est GFR (CKD-EPI)AfAm 73 (>60 ml/min/1.73 sqM) Est GFR (CKD-EPI)NonAf 64 (>60 ml/min/1.73 sqM) Glucose 132 H (74-99) mg/dL Plasma Lactic Acid Breezy 1.4 (0.7-2.0) mmol/L Calcium 8.7 (8.4-10.2) mg/dL Total Bilirubin 1.1 (0.2-1.3) mg/dL AST 60 H (14-36) U/L ALT 27 (4-34) U/L Alkaline Phosphatase 43 (38-126) U/L Total Protein 7.4 (6.3-8.2) g/dL Albumin 4.2 (3.5-5.0) g/dL Lipase 63 (23-300) U/L Urine Color Yellow Urine Appearance Clear (Clear) Urine pH 6.0 (5.0-8.0) Ur Specific [place] 1.016 (1.001-1.035) Urine Protein Trace H (Negative) Urine Glucose (UA) Negative (Negative) Urine Ketones Negative (Negative) Urine Blood Large H (Negative) Urine Nitrite Negative (Negative) Urine Bilirubin Negative (Negative) Urine Urobilinogen <2.0 (<2.0) mg/dL Ur Leukocyte Esterase Negative (Negative) Urine RBC 49 H (0-5) /hpf Urine WBC 6 H (0-5) /hpf Ur Squamous Epith Cells 1 (0-4) /hpf Urine Bacteria Rare H (None) /hpf Urine Mucus Rare H (None) /hpf 02/21/21 Range/Units 23:57 WBC 6.1 (3.8-10.6) k/uL RBC 4.34 (3.80-5.40) m/uL Hgb 13.1 (11.4-16.0) gm/dL Hct 40.4 (34.0-46.0) % MCV 93.1 (80.0-100.0) fL MCH 30.2 (25.0-35.0) pg MCHC 32.4 (31.0-37.0) g/dL RDW 13.6 (11.5-15.5) % Plt Count 129 L (150-450) k/uL MPV 8.9 Neutrophils % 74 % Lymphocytes % 17 % Monocytes % 6 % Eosinophils % 1 % Basophils % 0 % Neutrophils # 4.5 (1.3-7.7) k/uL Lymphocytes # 1.1 (1.0-4.8) k/uL Monocytes # 0.4 (0-1.0) k/uL Eosinophils # 0.1 (0-0.7) k/uL Basophils # 0.0 (0-0.2) k/uL Sodium (137-145) mmol/L Potassium (3.5-5.1) mmol/L Chloride (98-107) mmol/L Carbon Dioxide (22-30) mmol/L Anion Gap mmol/L BUN (7-17) mg/dL Creatinine (0.52-1.04) mg/dL Est GFR (CKD-EPI)AfAm (>60 ml/min/1.73 sqM) Est GFR (CKD-EPI)NonAf (>60 ml/min/1.73 sqM) Glucose (74-99) mg/dL Plasma Lactic Acid Breezy (0.7-2.0) mmol/L Calcium (8.4-10.2) mg/dL Total Bilirubin (0.2-1.3) mg/dL AST (14-36) U/L ALT (4-34) U/L Alkaline Phosphatase (38-126) U/L Total Protein (6.3-8.2) g/dL Albumin (3.5-5.0) g/dL Lipase (23-300) U/L Urine Color Urine Appearance (Clear) Urine pH (5.0-8.0) Ur Specific [place] (1.001-1.035) Urine Protein (Negative) Urine Glucose (UA) (Negative) Urine Ketones (Negative) Urine Blood (Negative) Urine Nitrite (Negative) Urine Bilirubin (Negative) Urine Urobilinogen (<2.0) mg/dL Ur Leukocyte Esterase (Negative) Urine RBC (0-5) /hpf Urine WBC (0-5) /hpf Ur Squamous Epith Cells (0-4) /hpf Urine Bacteria (None) /hpf Urine Mucus (None) /hpf - Radiology Data Radiology results: report reviewed, image reviewed CT abdomen and pelvis without contrast is obtained. Report reviewed in its entirety. Impression by Dr. Griffith shows numerous bilateral renal calculi. Right-sided hydronephrosis with calculus at the right UPJ which is probably producing obstruction. Obstruction appears new compared to old exam. No sign of obstruction on the left side. Disposition Clinical Impression: Kidney stone on right side Disposition: HOME SELF-CARE Condition: Good Instructions (If sedation given, give patient instructions): Kidney Stones (ED) Additional Instructions: Take medications as directed. Increase fluids. Follow-up with your urologist on Wednesday as you have planned. Return for any new, worsening, or concerning symptoms. Prescriptions: Tamsulosin HCl [Flomax] 0.4 mg PO DAILY #7 cap oxyCODONE-APAP 5-325MG [Percocet 5-325 mg] 1 tab PO Q6HR PRN 3 Days #12 tab PRN Reason: Severe Pain Is patient prescribed a controlled substance at d/c from ED?: No Referrals: Sebastian Hughes MD [Primary Care Provider] - 1-2 days Time of Disposition: 01:34
[2021-02-22 01:47] VITALS: BP 124/68; PULSE 74; TEMP 98.9
== END 2021-02-22 01:42 | disposition home or self-care (01) ==
LOC: EC 22:42
DX: N20.0 Calculus of kidney (principal); K21.9 Gastro-esophageal reflux disease without esophagitis; E78.5 Hyperlipidemia, unspecified; I10 Essential (primary) hypertension; M19.90 Unspecified osteoarthritis, unspecified site; E07.9 Disorder of thyroid, unspecified; F41.9 Anxiety disorder, unspecified; F32.9 Major depressive disorder, single episode, unspecified; Z88.0 Allergy status to penicillin; Z85.3 Personal history of malignant neoplasm of breast; Z87.440 Personal history of urinary (tract) infections; Z90.49 Acquired absence of other specified parts of digestive tract; Z90.710 Acquired absence of both cervix and uterus; Z96.643 Presence of artificial hip joint, bilateral; Z88.1 Allergy status to other antibiotic agents
CPT/HCPCS: 99284; 96374; 96375 ×2; 96376; 96361; 36415; 80053; 83605; 83690; 85025; 81001; 74176; J2405; J1170 ×2; J1885

== ENCOUNTER → 2021-08-04 | Outpatient (CLI) | payer MEDICARE ==
--- NOTE | 2021-08-04 14:06 | BD ---
EXAMINATION TYPE: Axial Bone Density DATE OF EXAM: 08/04/2021 COMPARISON: 02.22.2019 CLINICAL HISTORY: 75 years year old Female. ICD-10 CODE: M81.0 OSTEOPOROSIS Height: 63.8 Weight: 161 FRAX RISK QUESTIONS: History of Fracture in Adulthood: YES RISK FACTORS HISTORY OF: LT HUMERUS >50 YRS OLD, Surgery FOR SPINE, DISC SHAVING ONLY, BUT BILAT THRs AN ADULT Active: YES Postmenopausal woman: YES, AT AGE 51 YRS OLD Hyperparathyroidism: NO Adrenal Insufficiency: NO MEDICATIONS: Thyroid Medications: YES, SYNTHROID PRODUCT, FOR ABOUT 10+ YRS Additional Medications: BP MED, XANAX, HX OF RADIATION, BILAT BR CANCER, TAMOXIFEN, REFLUX MED, STATI N FOR CHOLESTEROL, VIT D AND CALCIUM, Additional History: LT BREAST CANCER 10 YRS AGO, RT BREAST CANCER 2019, ANXIETY, REFLUX, CHOLESTEROL, THYROID, HX OF DISC SURG LOW BACK, AND BOTH HIPS REPLACED... EXAM MEASUREMENTS: Bone mineral densitometry was performed using the Pet[employer] System. Bone mineral density as measured about the Lumbar spine is: ----- L1-L4(G/cm2): 1.066 T Score Values are as follows: ----- L1: -2.1 ----- L2: -1.7 ----- L3: -0.4 ----- L4: 0.7 ----- L1-L4: -0.9 Bone mineral density has: Decreased -9.5% since study of: 02.22.2019 Bone mineral density about the L Wrist (g/cm2): 0.557 T Score values are as follows: -----Dist. R+U: -0.8 -----Prox. R+U: -0.6 -----Radius total: -1.1 Bone mineral density has: Increased 2.4% since study of: 02.22.2019 FRAX%s: NO FRAX, BILAT THRs....HIPS NOT SCANNED IMPRESSION: Osteopenia of the radius. NOTE: T-SCORE=SD OF THE YOUNG ADULT MEAN.
== END | disposition home or self-care (01) ==
LOC: RADBDWWP 13:20
PROVIDERS: ATTEND Internal Medicine
DX: M85.89 Other specified disorders of bone density and structure, multiple sites (principal)
CPT/HCPCS: 77080

== ENCOUNTER → 2022-10-28 | Outpatient (CLI) | payer MEDICARE ==
--- NOTE | 2022-10-28 15:02 | XR ---
EXAMINATION TYPE: XR foot complete LT DATE OF EXAM: 10/28/2022 COMPARISON: NONE HISTORY: Pain TECHNIQUE: Three views are submitted. FINDINGS: The osseous structures are intact. There is no acute fracture or dislocation. Severe arthropathy f irst MTP with hypertrophic changes and complete loss of joint space. Diffuse osteopenia. There is a s mall plantar calcaneal spur. There is arthropathy of the tarsometatarsal junction. Vascular calcifica tions noted. IMPRESSION: 1. Severe arthropathy first MTP joint with complete loss of joint space correlate for osteoarthritis versus gout.
== END | disposition home or self-care (01) ==
LOC: RADXRMAIN 13:49
PROVIDERS: ATTEND Internal Medicine
DX: M12.872 Other specific arthropathies, not elsewhere classified, left ankle and foot (principal)

== ENCOUNTER → 2023-01-12 | Outpatient (CLI) | payer MEDICARE ==
[2023-01-12 13:55] LABS: African American GFR (CKD) 47 (>60 ml/min/1.73 sqM); Blood Urea Nitrogen 16 mg/dL (7-17); Non-African American GFR(CKD) 41 (>60 ml/min/1.73 sqM)
--- NOTE | 2023-01-13 08:20 | CT ---
EXAMINATION TYPE: CT abdomen pelvis wo con DATE OF EXAM: 01/12/2023 COMPARISON: 02/21/2021 HISTORY: reoccuring UTIs CT DLP: 462.90 mGycm Automated exposure control for dose reduction was used. TECHNIQUE: Helical acquisition of images was performed from the lung bases through the pelvis. FINDINGS: LUNG BASES: Bilateral scarring or atelectasis. LIVER/GB: Postcholecystectomy changes. PANCREAS: No significant abnormality is seen. SPLEEN: No significant abnormality is seen. ADRENALS: No significant abnormality is seen. KIDNEYS: There are multiple bilateral renal calculi. There is mild bilateral. The pelvic structures i ncluding the bladder and UVJ are obscured by metallic artifact from bilateral hip prostheses. FREE AIR: No free air is visualized RETROPERITONEAL ADENOPATHY: None visualized REPRODUCTIVE ORGANS: Limited by artifact URINARY BLADDER: Obscured by metallic artifact from bilateral hip prostheses. PELVIC ADENOPATHY: None visualized. OSSEOUS STRUCTURES: No significant abnormality is seen. BOWEL: Diverticulosis of the colon no CT evidence of ascites. Postsurgical change involving the colo n. No evidence of obstruction. Moderate-sized hiatal hernia with surgical clips in the epigastrium. OTHER: Bilateral hip prostheses. There are severe multilevel degenerative disc disease most marked at L2-3 and L3-4. Multilevel facet arthropathy. Atherosclerotic changes of the aorta with no evidence o f aneurysm. IMPRESSION: 1. Bilateral nephrolithiasis mild bilateral hydronephrosis. Bladder and distal ureters are obscured b y metallic artifact from patient's bilateral hip prostheses. 2. Diverticulosis with no CT evidence of diverticulitis. 3. Moderate sized hiatal hernia.
== END | disposition home or self-care (01) ==
LOC: RADCTMAIN 13:09
PROVIDERS: ATTEND Internal Medicine
DX: K44.9 Diaphragmatic hernia without obstruction or gangrene (principal); K57.30 Diverticulosis of large intestine without perforation or abscess without bleeding; N13.2 Hydronephrosis with renal and ureteral calculous obstruction; N30.00 Acute cystitis without hematuria; Z96.643 Presence of artificial hip joint, bilateral
CPT/HCPCS: 36415; 74176; 82565; 84520

== ENCOUNTER → 2023-04-02 | Outpatient (CLI) | payer MEDICARE ==
--- NOTE | 2023-04-03 14:19 | US ---
EXAMINATION TYPE: US thyroid st tissue head/neck DATE OF EXAM: 04/02/2023 COMPARISON: 05/12/2013 CLINICAL INDICATION: Female, 77 years old with history of E039 HYPOTHYROIDISM, UNSPECIFIED; Abnormal blood work; patient denies any other signs or symptoms GLAND SIZE: Right Lobe: 3.1 x 0.9 x 1.1 cm Overall Parenchyma: homogeneous Left Lobe: 3.0 x 1.6 x 1.3 cm Overall Parenchyma: homogeneous Isthmus Thickness: 0.1 cm NODULES RIGHT: # of nodules measured on right: 0 Tiny 4 mm benign cyst noted at the midpole LEFT: # of nodules measured on left: 0 ISTHMUS: # of nodules measured in the isthmus: 0 Bilateral neck scanned, no evidence of lymphadenopathy. IMPRESSION: Small thyroid gland. Findings suggest chronic hypothyroidism. A tiny benign 4 mm cyst is present on t he right.
== END | disposition home or self-care (01) ==
LOC: RADUSWWP 14:29
PROVIDERS: ATTEND Internal Medicine
DX: E04.1 Nontoxic single thyroid nodule (principal); E03.9 Hypothyroidism, unspecified
CPT/HCPCS: 76536

== ENCOUNTER → 2023-04-14 | Outpatient (CLI) | payer MEDICARE ==
--- NOTE | 2023-04-14 15:55 | NM ---
EXAMINATION TYPE: NM parathyroid w/spect DATE OF EXAM: 04/14/2023 COMPARISON: 03/24/2012 CLINICAL INDICATION: Female, 77 years old with history of E03.9 HYPOTHYROIDISM, UNSPECIFIED; TECHNIQUE: Following administration of 23.8 mCi Tc99m Sestamibi. Anterior projection images of the neck and ches t were obtained 15 minutes and 3 hours post injection. SPECT images of the neck and chest were obtai vonda and reconstructed in three axes. FINDINGS: Thyroid tracer washout: Delayed images demonstrate near-complete tracer washout from the thyroid. Parathyroid uptake: None. The two-hour delayed images do not demonstrate any focal abnormal persisten t uptake in the region of the parathyroid glands to suggest parathyroid adenoma. Normal uptake: There is physiological tracer uptake in the myocardium, liver, salivary glands, and th yroid gland. IMPRESSION: Normal parathyroid imaging study. No evidence for mediastinal uptake to suggest mediastinal parathyro id adenoma
== END | disposition home or self-care (01) ==
LOC: RADNMMAIN 09:52
PROVIDERS: ATTEND Internal Medicine
DX: E03.9 Hypothyroidism, unspecified (principal)
CPT/HCPCS: 78071; A9500

== ENCOUNTER → 2024-01-21 | Outpatient (CLI) | payer MEDICARE ==
--- NOTE | 2024-01-21 19:00 | BD ---
EXAMINATION TYPE: Axial Bone Density DATE OF EXAM: 01/21/2024 CLINICAL HISTORY: 78 years old Female. ICD-10 CODE: M85.841 BONE DENSITY AND STRUCTURE, RIGHT HAND Height: 63.3 Weight: 159 FRAX RISK QUESTIONS: History of Fracture in Adulthood: yes 3. Menopause before 45: no >50 RISK FACTORS HISTORY OF: hx of bilat breast cancer, bilat lumpectomies with radiation, diabetic left arm fx, humerus, with surgical repair, as an adult. Hip no fx but surgical, with bilat total hip replacements, as an adult. History of Wrist Fracture: yes, left hand and wrist, thumb surgical repair MEDICATIONS: calcium and vit d, bp meds, cholesterol meds, hx of radiation, Tamoxifen, metformin, Thyroid Medications: yes, for about 10+ yrs synthroid product EXAM MEASUREMENTS: Bone mineral densitometry was performed using the netTALK System. Bone mineral density as measured about the Lumbar spine is: ----- L1-L4(G/cm2): 1.295 T Score Values are as follows: ----- L1: -2.5 ----- L2: 1.4 ----- L3: 3.0 ----- L4: 1.7 ----- L1-L4: 1.0 Z Score Values are as follows: ----- L1: -0.9 ----- L2: 2.9 ----- L3: 4.6 ----- L4: 3.3 ----- L1-L4: 2.5 Bone mineral density has: Increased 21.5% since study of: 08.04.2021 bilat hip replacements, neither hip scanned. Bone mineral density about the L Wrist (g/cm2): 0.542 T Score values are as follows: -----Dist. R+U: -1.4 -----Prox. R+U: -0.5 -----Radius total: -1.3 Z Score values are as follows: -----Dist. R+U: 1.2 -----Prox. R+U: 2.0 -----Radius total: 1.2 Bone mineral density has: Increased 0.6% since study of: 08.04.2021 FRAX%s hips not scanned IMPRESSION: Osteopenia (T Score between -2.5 and -1). There is slightly increased risk of fracture and the patient may be considered for treatment. Re-Screen 2-5 years. NOTE: T-SCORE=SD OF THE YOUNG ADULT MEAN. [facility], , 01/21/2024 6:58 PM
== END | disposition home or self-care (01) ==
LOC: RADBDWWP 10:52
PROVIDERS: ATTEND Internal Medicine
DX: M85.841 Other specified disorders of bone density and structure, right hand (principal)
CPT/HCPCS: 77080

== ENCOUNTER 2024-03-13 08:57 | Inpatient (IN) | payer MEDICARE ==
[2024-03-13] MEDS: MORPHINE SULFATE 4 MG/ML SYRINGE IVP STA ×2 (09:53→12:34)
[2024-03-13] MEDS: SODIUM CHLORIDE 0.9% 1,000 ML IV STA (09:53)
[2024-03-13] MEDS: PANTOPRAZOLE 40 MG/10 ML VIAL IVP STA (09:54)
[2024-03-13] MEDS: ONDANSETRON 4 MG/2 ML VIAL IVP STA (09:54)
[2024-03-13 10:08] LABS: Anisocytosis Slight; Basophils % (A) 1 %; Eosinophils # (A) 0.1 k/uL (0-0.7); Eosinophils % (A) 1 %; HGB 13.5 gm/dL (11.4-16.0); Hypochromasia Slight; Lymphocytes # (A) 1.2 k/uL (1.0-4.8); Lymphocytes % (A) 20 %; MCH 27.2 pg (25.0-35.0); MCHC 30.7 g/dL (31.0-37.0); MCV 88.5 fL (80.0-100.0); Mean Platelet Volume 9.1; Monocytes # (A) 0.3 k/uL (0-1.0); Monocytes % (A) 5 %; Neutrophils # (A) 4.5 k/uL (1.3-7.7); Neutrophils % (A) 73 %; Platelet Count 121 k/uL (150-450); RBC 4.97 m/uL (3.80-5.40); RDW 16.2 % (11.5-15.5); WBC 6.2 k/uL (3.8-10.6)
[2024-03-13 10:10] LABS: ALT 27 U/L (4-34); AST 53 U/L (14-36); African American GFR (CKD) >90 (>60 ml/min/1.73 sqM); Albumin 4.3 g/dL (3.5-5.0); Alkaline Phosphatase 83 U/L (38-126); Amylase 40 U/L (30-110); Anion Gap 11 mmol/L; Blood Urea Nitrogen 10 mg/dL (7-17); Calcium 8.9 mg/dL (8.4-10.2); Carbon Dioxide 25 mmol/L (22-30); Chloride 105 mmol/L (98-107); Glucose 129 mg/dL (74-99); INR 1.1 (<1.2); Lipase 111 U/L (23-300); Non-African American GFR(CKD) 79 (>60 ml/min/1.73 sqM); Potassium 3.1 mmol/L (3.5-5.1); Prothrombin Time 11.9 sec (10.0-12.5); Sodium 141 mmol/L (137-145); Total Bilirubin 0.7 mg/dL (0.2-1.3); Total Protein 8.1 g/dL (6.3-8.2)
[2024-03-13 11:02] LABS: Appearance,Urine Cloudy (Clear); Bacteria,Urine Moderate /hpf; Bilirubin,Urine Negative (Negative); Blood,Urine Large (Negative); Color,Urine Colorless; Glucose,Urine (UA) 4+ (Negative); Hyaline Casts,Urine 3 /lpf (0-2); Ketones,Urine Negative (Negative); Leukocyte Esterase,Urine Large (Negative); Mucus,Urine Rare /hpf; Nitrite,Urine Positive (Negative); PH, Urine 5.5 (5.0-8.0); Protein,Urine Negative (Negative); RBC,Urine 34 /hpf (0-5); Specific Gravity,Urine 1.011 (1.001-1.035); Squamous Epithelial Cell,Urine 2 /hpf (0-4); Urobilinogen,Urine <2.0 mg/dL (<2.0); WBC,Urine 139 /hpf (0-5)
[2024-03-13] MEDS: HYDROmorphone 0.5 MG/0.5 ML SYRINGE IVP STA (11:03)
--- NOTE | 2024-03-13 11:12 | CT ---
EXAMINATION TYPE: CT abdomen pelvis w con CT DLP: 859.5 mGycm, Automated exposure control for dose reduction was used. DATE OF EXAM: 03/13/2024 10:58 AM COMPARISON: CT abdomen pelvis 01/12/2023, 02/21/2021 CLINICAL INDICATION:Female, 78 years old with history of abdominal pain. LLQ.; LLQ abdominal pain TECHNIQUE: Standard CT of the abdomen and pelvis following the administration of 100 cc of Isovue 3 00 IV contrast material. Coronal and sagittal reformats were performed. FINDINGS: LOWER CHEST: Mild posterior dependent subsegmental atelectasis is noted. Additional linear atelectasi s within the right lower and middle lobes. ABDOMEN LIVER: Unremarkable GALLBLADDER AND BILE DUCTS: The gallbladder is surgically absent. No biliary ductal dilatation. PANCREAS: Unremarkable. SPLEEN: Unremarkable. ADRENAL GLANDS: Unremarkable. KIDNEYS AND URETERS: Mild bilateral hydroureteronephrosis. There is an obstructive 3 mm calculus with in the proximal left ureter just past uteropelvic junction. There is ureteral wall enhancement and th ickening with some fat stranding involving the proximal portion. Both distal ureters at the ureterove sical junction are poorly evaluated due to streak artifact from hip prosthesis. No definitive right r enal obstructing calculus. Additional nonobstructive bilateral renal calculi. There is a 5 mm calculu s within the left renal pelvis. Bilateral extrarenal pelvises. The kidneys enhance symmetrically. Con trast is demonstrated within both collecting systems on the delayed phase. PELVIS BLADDER: Limited evaluation due to streak artifact from hip prosthesis. REPRODUCTIVE: Limited evaluation due to streak artifact from hip prosthesis. ABDOMEN & PELVIS STOMACH AND BOWEL: Small hiatal hernia with postsurgical changes at the GE junction.Distal colonic di verticulosis without evidence for acute diverticulitis. Post surgical changes at the cecum. No focal bowel wall thickening or surrounding inflammatory changes. No evidence of bowel obstruction. PERITONEUM: No evidence of pneumoperitoneum or free fluid. VASCULATURE: Mild atherosclerotic calcifications are present throughout the abdominal aorta and its b ranches. No evidence of aortic aneurysm. Pelvic phleboliths. MUSCULOSKELETAL: No acute osseous abnormalities. Post surgical changes from bilateral total hip arthr oplasty. Moderate multilevel degenerative disc disease of the lumbar spine. S-shaped scoliotic curvat ure of the thoracolumbar spine. LYMPH NODES: No evidence for lymphadenopathy. SOFT TISSUE/ABDOMINAL WALL: Unremarkable IMPRESSION: 1. Mild bilateral hydroureteronephrosis with an obstructing 3 mm calculus within the proximal left u reter. No definitive right obstructing calculus however evaluation is limited due to poor visualizati on of both distal ureters because of streak artifact from hip prosthesis. There is enhancement with f at stranding involving the proximal left ureter suggesting urothelial inflammatory changes. Underlyin g neoplasm is not excluded. 2. Nonobstructive bilateral renal calculi. 3. Distal colonic diverticulosis without definitive evidence for acute diverticulitis however evaluat ion is limited due to streak artifact from it prosthesis. [facility], , 03/13/2024 11:10 AM
[2024-03-13] MEDS: CEFEPIME 2 GM in SODIUM CHLORIDE 0.9% 100 ML IVPB SCH (12:32)
[2024-03-13] MEDS ORDERED: ACETAMINOPHEN TAB 325 MG TAB PO PRN (12:38)
[2024-03-13] MEDS ORDERED: ONDANSETRON 4 MG/2 ML VIAL IVP PRN (12:38)
[2024-03-13] MEDS ORDERED: NALOXONE 0.4 MG/ML 1 ML VIAL IV PRN (12:38)
--- NOTE | 2024-03-13 12:43 | ED ---
General Adult HPI - General Chief complaint: Abdominal Pain Stated complaint: L sided abd pain Time Seen by Provider: 03/13/24 09:18 Source: patient, RN notes reviewed, old records reviewed Mode of arrival: ambulatory Limitations: no limitations - History of Present Illness Initial comments: Patient is a 78-year-old female presents emergency department complaining of left-sided abdominal pain. States it was sudden onset this morning. Somewhat radiates around her flank to her back. 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 Denies any significant nausea or vomiting. Denies any significant constipation. Denies chest pain or shortness of breath or fevers or chills. Has no urinary complaints. Denies vaginal discharge or bleeding. Presents for further evaluation at this time. - Related Data Home Medications Medication Instructions Recorded Confirmed ALPRAZolam [Xanax] 0.5 mg PO HS 02/04/15 03/13/24 Atorvastatin [Lipitor] 10 mg PO W/SUPPER 02/10/18 03/13/24 HYDROcodone/APAP 10-325MG [[place] 1 tab PO Q12H PRN 02/10/18 03/13/24 10-325] Fluticasone Nasal [place] [Flonase 1 spr EA NOSTRIL HS 02/08/19 03/13/24 Nasal [place]] Levothyroxine Sodium [Synthroid] 25 mcg PO AC-BRKFST 02/08/19 03/13/24 Bisoprolol-Hctz 5-6.25 mg [Ziac 1 tab PO DAILY 03/13/24 03/13/24 5-6.25 MG] Caltrate(Unknown Dose) 1 tab PO W/SUPPER 03/13/24 03/13/24 Dapagliflozin Propanediol [Farxiga] 5 mg PO AC-BRKFST 03/13/24 03/13/24 Ibuprofen [Motrin] 800 mg PO Q6H PRN 03/13/24 03/13/24 Magnesium(Unknown Dose) 1 tab PO W/SUPPER 03/13/24 03/13/24 Montelukast [Singulair] 10 mg PO W/SUPPER 03/13/24 03/13/24 Omeprazole 40 mg PO DAILY 03/13/24 03/13/24 Potassium Chloride [Klor-Con 10 ER] 10 meq PO W/SUPPER 03/13/24 03/13/24 Tamoxifen [Nolvadex] 10 mg PO Q2D 03/13/24 03/13/24 Venlafaxine HCl ER [Effexor Xr] 225 mg PO AC-BRKFST 03/13/24 03/13/24 Vitamin B-12(Unknown Dose) 1 tab PO W/SUPPER 03/13/24 03/13/24 Vitamin D3(Unknown Dose) 1 tab PO W/SUPPER 03/13/24 03/13/24 dilTIAZem HCL [dilTIAZem HCL 24Hr 180 mg PO W/SUPPER 03/13/24 03/13/24 ER (LA)] metFORMIN HCL ER [Glucophage XR] 500 mg PO W/SUPPER 03/13/24 03/13/24 Allergies Allergy/AdvReac Type Severity Reaction Status Date / Time amoxicillin trihydrate Allergy Rash/Hives Verified 03/13/24 12:37 [From Augmentin] Penicillins Allergy Rash/Hives Verified 03/13/24 12:37 on face potassium clavulanate Allergy Rash/Hives Verified 03/13/24 12:37 [From Augmentin] Review of Systems ROS Statement: Those systems with pertinent positive or pertinent negative responses have been documented in the HPI. Review of Systems: CONST: Denies fever EYES: Denies blurry vision ENT: Denies nasal congestion C/V: Denies Chest pain RESP: Denies shortness of breath GI: Endorses abdominal pain : Denies dysuria SKIN: Denies rash. MSK: Denies joint pain. NEURO: Denies headache ROS Other: All systems not noted in ROS Statement are negative. Past Medical History Past Medical History: Cancer, Diabetes Mellitus, GERD/Reflux, Hyperlipidemia, Hypertension, Osteoarthritis (OA), Pneumonia, Thyroid Disorder Additional Past Medical History / Comment(s): L breast cancer with bala mpectomy/radiation, UTI,SEE DR DAY'S HISTORY AND PHYSICAL FOR CARDIAC HISTORY , kidney stones, chronic hypokalemia, hypothyroid, iron deficiency anemia, sinus problems, R upper arm varicosity, arthritis in R hand and neck, osteopenia. History of Any Multi-Drug Resistant Organisms: None Reported Past Surgical History: Appendectomy, Bowel Resection, Breast Surgery, Cholecystectomy, Hysterectomy, Joint Replacement, Orthopedic Surgery, Tonsillec weston Additional Past Surgical History / Comment(s): open cholecystectomy many years ago, aidan hip replacements, low back surgery, L hand tendon surgery, cystoscopies, kidney stone removal (lithotripsy/stents-all out now), L breast lumpectomy, bilateral cataract surgery with lens implants, colonoscopies, Migel fundoplication.RIGHT BREAST-LUMPECTOMY Past Anesthesia/Blood Transfusion Reactions: Postoperative Nausea & Vomiting (PONV) Past Psychological History: Anxiety, Depression Smoking Status: Never smoker Past Alcohol Use History: None Reported Past Drug Use History: None Reported - Past Family History Mother Family Medical History: Cancer Additional Family Medical History / Comment(s): Mother had pancreatic cancer. She of this in her early 70s. Daughter(s) Family Medical History: Cancer Additional Family Medical History / Comment(s): Patient has 2 daughters and one of her daughters is BRCA gene positive. Daughter had colon cancer. Son(s) Family Medical History: No Reported History Additional Family Medical History / Comment(s): Patient has one son with no major medical problems. Sister(s) Family Medical History: Cancer Additional Family Medical History / Comment(s): Patient has 2 sisters with thyroid disease and one with breast cancer. Father Family Medical History: Myocardial Infarction ([place]) Additional Family Medical History / Comment(s): Father at the age of 52 yrs from a [facility]. He was a smoker. General Exam - General Exam Comments Initial Comments: General: Appears in no acute distress. HEAD: Normal with no signs of head trauma. EYES: PERRLA, EOMI, conjunctiva normal, no discharge. ENT: Hearing grossly intact, normal oropharynx. RESPIRATORY: Clear breath sounds bilaterally. No wheezes, rales, or rhonchi. C/V: Regular rate and rhythm. S1 and S2 auscultated, no edema, peripheral pulses 2+ and intact throughout ABD: Abdomen soft, nondistended. Tender to palpation in the left lower quadrant, left flank. No guarding. No significant CVA tenderness to percussion. No rebound tenderness. EXT: Normal range of motion, no obvious deformity SKIN: No rashes or lesions observed on exposed skin. NEURO: Alert and oriented x 4. Limitations: no limitations Course Vital Signs 03/13/24 03/13/24 03/13/24 09:02 11:07 12:21 Temperature 98.4 F Pulse Rate 78 79 84 Respiratory 22 18 18 Rate Blood Pressure 162/95 153/92 140/91 O2 Sat by Pulse 99 92 L 93 L Oximetry Medical Decision Making - Medical Decision Making Was pt. sent in by a medical professional or institution (CHATO Rojas, CORN CUTTER OPERATOR, urgent care, hospital, or correction...) When possible be specific @ -No Did you speak to anyone other than the patient for history (EMS, parent, family, police, friend...)? What history was obtained from this source @ -No Did you review nursing and triage notes (agree or disagree)? Why? @ -I reviewed and agree with nursing and triage notes Were old charts reviewed (outside hosp., previous admission, EMS record, old EKG, old radiological studies, urgent care reports/EKG's, correction records)? Report findings @ -Reviewed prior CT imaging and surgical procedure from 2019 when patient had a cecal volvulus. Differential Diagnosis (chest pain, altered mental status, abdominal pain women, abdominal pain men, vaginal bleeding, weakness, fever, dyspnea, syncope, headache, dizziness, GI bleed, back pain, seizure, CVA, palpatations, mental health, musculoskeletal)? @ -Differential Abdominal Pain Women: Appendicitis, Cholecystitis, diverticulosis, ischemic bowel, pancreatitis, hepatitis, UTI, gastroenteritis, AAA, incarcerated hernia, bowel obstruction, constipation, inflammatory bowel, hepatitis, peptic ulcer disease, splenic infarction, perforated viscus, vulvitis, ovarian torsion, PID, kidney stone, placenta abruption, this is not meant to be an all-inclusive list EKG interpreted by me (3pts min.). @ -As above X-rays interpreted by me (1pt min.). @ -None done CT interpreted by me (1pt min.). @ -CT imaging reveals a left-sided ureteral lithiasis with mild hydronephrosis. Stone size is approximately 3 mm. No obvious other acute intra-abdominal process noted. U/S interpreted by me (1pt. min.). @ -None done What testing was considered but not performed or refused? (CT, X-rays, U/S, labs)? Why? @ -None What meds were considered but not given or refused? Why? @ -None Did you discuss the management of the patient with other professionals (professionals i.e. Dr., PA, CORN CUTTER OPERATOR, lab, RT, psych nurse, social work lecturer, weigher alloy, teacher, equal employment opportunity officer, case finisher)? Give summary @ -Discussed results with urology, Dr. Isbell who is in agreement plan for admission and requested patient be made n.p.o. after midnight. Was in agreement with plan for IV antibiotics. Discussed with the admitting provider, Dr. Hughes who accepted the admission. Was smoking cessation discussed for >3mins.? @ -No Was critical care preformed (if so, how long)? @ -No Were there social determinants of health that impacted care today? How? (Homelessness, low income, unemployed, alcoholism, drug addiction, transportation, low edu. Level, literacy, decrease access to med. care, residential, rehab)? @ -No Was there de-escalation of care discussed even if they declined (Discuss DNR or withdrawal of care, Hospice)? DNR status @ -No What co-morbidities impacted this encounter? (DM, HTN, Smoking, COPD, CAD, Cancer, CVA, ARF, Chemo, Hep., AIDS, mental health diagnosis, sleep apnea, morbid obesity)? @ -None Was patient admitted / discharged? Hospital course, mention meds given and route, prescriptions, significant lab abnormalities, going to OR and other [facility] info. @ -Based on the patient's presentation and physical exam, patient presents emergency department for left lower quadrant abdominal pain. We will obtain CT imaging as well as abdominal pain workup. Patient agreement this plan. Vitals are within acceptable limits. Patient administered IV fluids, analgesia medications, antiemetics for symptomatic control. Laboratory studies remarkable for slight lactic acidosis of 2.1, as well as findings of UTI on urinalysis. Imaging does show a left-sided proximal ureter ureteral lithiasis. Mild hydronephrosis. Concern for infected kidney stone. Patient updated. We will start the patient on IV antibiotics, IV fluids. I spoke with urology who requested patient be made n.p.o. after midnight. Will continue with analgesia medications. Urine culture obtained and sent. Spoke with the admitting provider, Dr. Hughes who accepted the admission. Undiagnosed new problem with uncertain prognosis? @ -No Drug Therapy requiring intensive monitoring for toxicity (Heparin, Nitro, Insulin, Cardizem)? @ -No Were any procedures done? @ -No Diagnosis/symptom? @ -Ureteral lithiasis, infected kidney stone Acute, or Chronic, or Acute on Chronic? @ -Acute Uncomplicated (without systemic symptoms) or Complicated (systemic symptoms)? @ -Complicated Side effects of treatment? @ -No Exacerbation, Progression, or Severe Exacerbation? @ -No Poses a threat to life or bodily function? How? (Chest pain, [place], [place], pneumonia, PE, COPD, DKA, ARF, appy, cholecystitis, CVA, Diverticulitis, Homicidal, Suicidal, threat to staff... and all critical care pts) @ -Yes - Lab Data Result diagrams: 03/13/24 09:42 03/13/24 09:42 Lab Results 03/13/24 03/13/24 03/13/24 Range/Units 09:42 09:42 09:42 WBC 6.2 (3.8-10.6) k/uL RBC 4.97 (3.80-5.40) m/uL Hgb 13.5 (11.4-16.0) gm/dL Hct 44.0 (34.0-46.0) % MCV 88.5 (80.0-100.0) fL MCH 27.2 (25.0-35.0) pg MCHC 30.7 L (31.0-37.0) g/dL RDW 16.2 H (11.5-15.5) % Plt Count 121 L (150-450) k/uL MPV 9.1 Neutrophils % 73 % Lymphocytes % 20 % Monocytes % 5 % Eosinophils % 1 % Basophils % 1 % Neutrophils # 4.5 (1.3-7.7) k/uL Lymphocytes # 1.2 (1.0-4.8) k/uL Monocytes # 0.3 (0-1.0) k/uL Eosinophils # 0.1 (0-0.7) k/uL Basophils # 0.0 (0-0.2) k/uL Hypochromasia Slight Anisocytosis Slight PT 11.9 (10.0-12.5) sec INR 1.1 (<1.2) APTT 25.0 (22.0-30.0) sec Sodium 141 (137-145) mmol/L Potassium 3.1 L (3.5-5.1) mmol/L Chloride 105 (98-107) mmol/L Carbon Dioxide 25 (22-30) mmol/L Anion Gap 11 mmol/L BUN 10 (7-17) mg/dL Creatinine 0.73 (0.52-1.04) mg/dL Est GFR (CKD-EPI)AfAm >90 (>60 ml/min/1.73 sqM) Est GFR (CKD-EPI)NonAf 79 (>60 ml/min/1.73 sqM) Glucose 129 H (74-99) mg/dL Lactic Ac Sepsis Rflx Plasma Lactic Acid Breezy (0.7-2.0) mmol/L Calcium 8.9 (8.4-10.2) mg/dL Total Bilirubin 0.7 (0.2-1.3) mg/dL AST 53 H (14-36) U/L ALT 27 (4-34) U/L Alkaline Phosphatase 83 (38-126) U/L Total Protein 8.1 (6.3-8.2) g/dL Albumin 4.3 (3.5-5.0) g/dL Amylase 40 (30-110) U/L Lipase 111 (23-300) U/L Urine Color Urine Appearance (Clear) Urine pH (5.0-8.0) Ur Specific [place] (1.001-1.035) Urine Protein (Negative) Urine Glucose (UA) (Negative) Urine Ketones (Negative) Urine Blood (Negative) Urine Nitrite (Negative) Urine Bilirubin (Negative) Urine Urobilinogen (<2.0) mg/dL Ur Leukocyte Esterase (Negative) Urine RBC (0-5) /hpf Urine WBC (0-5) /hpf Urine WBC Clumps (None) /hpf Ur Squamous Epith Cells (0-4) /hpf Urine Bacteria (None) /hpf Hyaline Casts (0-2) /lpf Urine Mucus (None) /hpf 03/13/24 03/13/24 03/13/24 Range/Units 09:42 10:26 10:32 WBC (3.8-10.6) k/uL RBC (3.80-5.40) m/uL Hgb (11.4-16.0) gm/dL Hct (34.0-46.0) % MCV (80.0-100.0) fL MCH (25.0-35.0) pg MCHC (31.0-37.0) g/dL RDW (11.5-15.5) % Plt Count (150-450) k/uL MPV Neutrophils % % Lymphocytes % % Monocytes % % Eosinophils % % Basophils % % Neutrophils # (1.3-7.7) k/uL Lymphocytes # (1.0-4.8) k/uL Monocytes # (0-1.0) k/uL Eosinophils # (0-0.7) k/uL Basophils # (0-0.2) k/uL Hypochromasia Anisocytosis PT (10.0-12.5) sec INR (<1.2) APTT (22.0-30.0) sec Sodium (137-145) mmol/L Potassium (3.5-5.1) mmol/L Chloride (98-107) mmol/L Carbon Dioxide (22-30) mmol/L Anion Gap mmol/L BUN (7-17) mg/dL Creatinine (0.52-1.04) mg/dL Est GFR (CKD-EPI)AfAm (>60 ml/min/1.73 sqM) Est GFR (CKD-EPI)NonAf (>60 ml/min/1.73 sqM) Glucose (74-99) mg/dL Lactic Ac Sepsis Rflx Y Plasma Lactic Acid Breezy 2.1 H* (0.7-2.0) mmol/L Calcium (8.4-10.2) mg/dL Total Bilirubin (0.2-1.3) mg/dL AST (14-36) U/L ALT (4-34) U/L Alkaline Phosphatase (38-126) U/L Total Protein (6.3-8.2) g/dL Albumin (3.5-5.0) g/dL Amylase (30-110) U/L Lipase (23-300) U/L Urine Color Colorless Urine Appearance Cloudy H (Clear) Urine pH 5.5 (5.0-8.0) Ur Specific [place] 1.011 (1.001-1.035) Urine Protein Negative (Negative) Urine Glucose (UA) 4+ H (Negative) Urine Ketones Negative (Negative) Urine Blood Large H (Negative) Urine Nitrite Positive H (Negative) Urine Bilirubin Negative (Negative) Urine Urobilinogen <2.0 (<2.0) mg/dL Ur Leukocyte Esterase Large H (Negative) Urine RBC 34 H (0-5) /hpf Urine WBC 139 H (0-5) /hpf Urine WBC Clumps Few H (None) /hpf Ur Squamous Epith Cells 2 (0-4) /hpf Urine Bacteria Moderate H (None) /hpf Hyaline Casts 3 H (0-2) /lpf Urine Mucus Rare H (None) /hpf - EKG Data -: EKG Interpreted by Me EKG Comments: 12-lead Electrocardiogram Interpretation Note EKG was reviewed and interpreted by myself. 12-lead ECG performed at 0927 is interpreted by me as revealing normal sinus rhythm at a rate of 73 beats per minute. Left axis deviation. OH interval is 184 ms, QRS duration is 102 ms, QTc is 462 ms.. There were no ST or T wave abnormalities to suggest myocardial ischemia or injury. R wave progression across the precordium was delayed. By my interpretation this EKG is non-diagnostic for acute ischemia. Disposition Clinical Impression: Ureterolithiasis, UTI (urinary tract infection) Disposition: ADMITTED IP TO THIS [facility] Condition: Stable Referrals: Sebastian Hughes MD [Primary Care Provider] - 1-2 days Time of Disposition: 12:25
[2024-03-13] MEDS: SODIUM CHLORIDE 0.9% 1,000 ML IV SCH (13:10)
[2024-03-13] MEDS: DILTIAZEM CD 180 MG CAP.ER.24H PO SCH (17:10)
[2024-03-13] MEDS: metFORMIN 500 MG TAB PO SCH (17:11)
[2024-03-13] MEDS: ATORVASTATIN 10 MG TAB PO SCH (17:11)
[2024-03-13] MEDS: CALCIUM CARB-VIT D 500 MG-5 MCG TAB PO SCH (17:11)
[2024-03-13] MEDS: TAMSULOSIN 0.4 MG CAP.ER.24H PO STA (20:13)
[2024-03-13] MEDS: ALPRAZolam 0.25 MG TAB PO SCH (20:13)
[2024-03-13] MEDS: HYDROmorphone 0.5 MG/0.5 ML SYRINGE IVP PRN (20:14)
[2024-03-13 20:52] LABS: Glucose,Whole Blood 96 mg/dL (70-110)
[2024-03-13] MEDS: FLUTICASONE NASAL 50MCG/SPRAY 16GM BTL EA NOSTRIL SCH (22:07)
[2024-03-14] MEDS: HYDROcodone/APAP 10-325MG 1 EACH TAB PO PRN ×2 (00:56→11:51)
--- NOTE | 2024-03-14 06:32 | P.HPIM ---
History of Present Illness H&P Date: 03/13/24 Chief Complaint: Urinary tract infection/3 mm obstructing stone left proximal ureter HISTORY OF PRESENT ILLNESS: This is a 78-year-old female with a previous medical history significant for hypertension and hypertensive cardiovascular disease hyperlipidemia,, hypothyroidism, diabetes mellitus type 2, GERD with esophagitis, malignant neoplasm of left breast, status post left breast lumpectomy with radiation therapy, history of kidney stones, iron deficiency ane volodymyr secondary to blood loss chronic, patient has been under the care of Dr. Seay at [facility] for recurrent kidney stones, as matter fact she was seen by him about a month ago and she was given the clearance to come back and see me in a year from now, apparently the patient woke up in the morning with severe abdominal pain located in the left side radiating to the front of the abdomen associated with diaphoresis and nausea but no vomiting, she had contacted her granddaughter to come pick her up to go to the emergency department for evaluation, she went to the ER, had a CT scan of the abdomen and pelvis that did show evidence of obstructing 3 mm proximal left ureteral stone with bilateral hydroureteronephrosis with no evidence of any obstruction on the right side, however there was evidence of fat stranding in the left side due to possible pyelonephritis as well, urinalysis was suggestive of urinary tract infection as well, she was started on IV antibiotic in the form of cefepime 2 g piggyback every 8 hours, urine culture and blood culture were sent, urology consultation was obtained for possible intervention tomorrow morning, she was started on IV fluid resuscitation in the form of normal saline at 100 cc an hour, she was placed on Dilaudid 0.5 mg IV push every 3 hours, along with her hydrocodone twice every day as needed, patient will be seen by urology tomorrow morning she will be kept on nothing per mouth midnight. REVIEW OF SYSTEMS: Constitutional: No documented fever, positive for chills, night sweats. No weight change. No weakness, fatigue or lethargy. No daytime sleepiness. EENT: No headache. No blurred vision or double vision, no loss of vision. No loss of Hearing, no ringing in the ears, no dizziness. No nasal drainage or congestion. No epistaxis. No sore throat. Lungs: No shortness of breath, no cough, no sputum production. No wheezing. Reports dyspnea with activity. Cardiovascular: No chest pain, no lower extremity edema. No palpitations. No paroxysmal nocturnal dyspnea. No orthopnea. No lightheadedness or dizziness. No syncopal episodes. Abdominal: Reports abdominal pain. Positive for nausea, vomiting. No diarrhea. No constipation. No bloody or tarry stools reports loss of appetite. Genitourinary: Positive for dysuria, increased frequency, urgency. No urinary retention. Positive for hematuria. Musculoskeletal: No myalgias. No muscle weakness, no gait dysfunction, no frequent falls. No back pain. No neck pain. Integumentary: No wounds, no lesions. No rash or pruritus. No unusual bruising. No change in hair or nails. Neurologic: No aphasia. No facial droop. No change in mentation. No head injury. No headache. No paralysis. No paresthesia. Psychiatric: No depression. Positive for anxiety. No mood swings. Endocrine: No abnormal blood sugars. No weight change. PAST MEDICAL HISTORY: Hypertension and hypertensive cardiovascular disease Mixed hyperlipidemia. Diabetes mellitus type 2. Hypothyroidism. GERD with esophagitis. Malignant neoplasm of the left female breast Bilateral kidney stones. Iron deficiency anemia due to chronic blood loss. Onychomycosis. Stage II chronic kidney disease. Osteopenia of the right hand. Esophageal dysphagia. Dry mouth. PAST SURGICAL HISTORY: Right lumpectomy April 2019 SVT ablation 10/14/2019 Left breast lumpectomy with radiation. Open cholecystectomy. Bilateral total hip arthroplasty. Low back surgery. Left hand tendon surgery. Cystoscopy with lithotripsy Bilateral cataract surgery Migel fundoplication Colonoscopy 2016 Right hemicolectomy from volvulus February 12 2019. EGD 08/28/2020 EGD and colonoscopy 09/25/2021 Kidney stone removal 2020 SOCIAL HISTORY: Patient is a lifelong non-smoker, she is drinks occasionally, she denies any drug use or abuse, she lives alone from her . FAMILY HISTORY: Father at the age of 51 from [place] mother at the age of 72 from pancreatic cancer patient had 1 2 sisters 1 at the age of 66 from non- Hodgkin lymphoma patient has 1 son alive and well with hypertension hyperlipi demia patient has 2 daughters with hypertension and depression. PHYSICAL EXAMINATION: General: 78-year-old female examined in bed in mild to moderate distress. HEENT: Head is atraumatic, normocephalic, pupils were equal round reactive to light and recommendation, extraocular muscle movement were intact, sclera nonicteric, conjunctivae were pale, mucous membranes of the mouth are somewhat dry. Neck: Supple, no JVP, normal carotid upstroke bilaterally, no lymphadenopathy. Chest: Decreased breath sounds at the bases, few rhonchi, no expiratory wheezes, no chest wall tenderness, no intercostal retractions. Heart: First heart sound is normal, second heart sounds normal there is systolic ejection murmur 2/6 located left sternal border Abdomen: Soft, mild tenderness to the left upper quadrant suprapubic area, nondistended, positive bowel sounds. Extremities: There is no edema no calf tenderness DP +2 bilaterally. Neurologic examination: Patient is awake alert and oriented x3, cranial nerves II-12 appear grossly intact, muscle power were 5 out of 5 in upper extremities and 5 out of 5 in bilateral lower extremities, deep tendon reflexes normal bilaterally. ASSESSMENT AND PLAN: 1. Acute bilateral hydroureteronephrosis with obstructing stone 3 mm in the proximal left ureter continue IV fluid resuscitation in the form of normal saline at 100 cc an hour, start the patient on tamsulosin 0.4 mg orally once every day, consult urology for possible intervention tomorrow morning, start the patient on cefepime 2 g IV piggyback every 8 hours, urine culture blood culture will be obtained, start the patient also on Dilaudid 0.5 mg IV push every 3 hours as needed, continue hydrocodone every 6 hours as needed. Follow-up with the patient very closely. 2. Lactic acidosis. Continue patient on IV fluid resuscitation repeat lactic acid in the next 6 hours. 3. Left pyelonephritis with SIRS. Blood cultures, urine culture, continue cefepime 2 g piggyback every 8 hours, monitor the patient's symptoms very closely. 4. Recurrent bilateral kidney stones status post multiple intervention in the past. Urology consultation is in order. 5. Hypertension and hypertensive cardiovascular disease. Patient on Ziac 5/6.25 mg orally once every day, as well as Cardizem CD1 80 mg once every day monitor the patient blood pressure very closely. 6. Mixed hyperlipidemia. Continue patient on atorvastatin 10 mg once every day, monitor lipid panel, keep LDL 55-70. 7. Diabetes mellitus type 2. Continue patient on Farxiga 5 mg orally once every day. Start the patient on sliding scale insulin as well. 8.. Hypothyroidism .continue levothyroxine 25 mcg orally once every day. 9. Allergic rhinitis. Continue montelukast 10 mg once every day as well as Flonase nasal spray 1 puff in each nostril once every day. 10. History of SVT status post ablation. 11. Breast cancer status post left lumpectomy with radiation therapy continue tamoxifen 10 mg every other day. 12. Disorder. Continue patient on Xanax 0.5 mg at bedtime. 13. Major depressive disorder. Continue patient on venlafaxine to 25 mg orally once every day. 14. DVT prophylaxis. Continue patient on Lovenox 40 mg subcutaneous every 24 hours. 15. Prophylaxis. Continue patient on Protonix 40 mg IV push every 24 hours. 16. To inpatient. Estimated length of stay 2 midnights. 17. Patient is full code. Past Medical History Past Medical History: Cancer, Diabetes Mellitus, GERD/Reflux, Hyperlipidemia, Hypertension, Osteoarthritis (OA), Pneumonia, Thyroid Disorder Additional Past Medical History / Comment(s): L breast cancer with lumpectomy/radiation, UTI,SEE DR DAY'S HISTORY AND PHYSICAL FOR CARDIAC HISTORY , kidney stones, chronic hypokalemia, hypothyroid, iron deficiency anemia, sinus problems, R upper arm varicosity, arthritis in R hand and neck, osteopenia. History of Any Multi-Drug Resistant Organisms: None Reported Past Surgical History: Appendectomy, Bowel Resection, Breast Surgery, Cholecystectomy, Hysterectomy, Joint Replacement, Orthopedic Surgery, Tonsi llectomy Additional Past Surgical History / Comment(s): open cholecystectomy many years ago, aidan hip replacements, low back surgery, L hand tendon surgery, cystoscopies, kidney stone removal (lithotripsy/stents-all out now), L breast lumpectomy, bilateral cataract surgery with lens implants, colonoscopies, Migel fundoplication.RIGHT BREAST-LUMPECTOMY Past Anesthesia/Blood Transfusion Reactions: Postoperative Nausea & Vomiting (PONV) Past Psychological History: Anxiety, Depression Smoking Status: Never smoker Past Alcohol Use History: None Reported Past Drug Use History: None Reported - Past Family History Mother Family Medical History: Cancer Additional Family Medical History / Comment(s): Mother had pancreatic cancer. She of this in her early 70s. Daughter(s) Family Medical History: Cancer Additional Family Medical History / Comment(s): Patient has 2 daughters and one of her daughters is BRCA gene positive. Daughter had colon cancer. Son(s) Family Medical History: No Reported History Additional Family Medical History / Comment(s): Patient has one son with no major medical problems. Sister(s) Family Medical History: Cancer Additional Family Medical History / Comment(s): Patient has 2 sisters with thyroid disease and one with breast cancer. Father Family Medical History: Myocardial Infarction ([place]) Additional Family Medical History / Comment(s): Father at the age of 52 yrs from a [place]. He was a smoker. Medications and Allergies Home Medications Medication Instructions Recorded Confirmed Type ALPRAZolam [Xanax] 0.5 mg PO HS 02/04/15 03/13/24 History Atorvastatin [Lipitor] 10 mg PO W/SUPPER 02/10/18 03/13/24 History HYDROcodone/APAP 10-325MG [[place] 1 tab PO Q12H PRN 02/10/18 03/13/24 History 10-325] Fluticasone Nasal [place] [Flonase 1 spr EA NOSTRIL HS 02/08/19 03/13/24 History Nasal [place]] Levothyroxine Sodium [Synthroid] 25 mcg PO AC-BRKFST 02/08/19 03/13/24 History Bisoprolol-Hctz 5-6.25 mg [[place] 1 tab PO DAILY 03/13/24 03/13/24 History 5-6.25 MG] Caltrate(Unknown Dose) 1 tab PO W/SUPPER 03/13/24 03/13/24 History Dapagliflozin Propanediol [Farxiga] 5 mg PO AC-BRKFST 03/13/24 03/13/24 History Ibuprofen [Motrin] 800 mg PO Q6H PRN 03/13/24 03/13/24 History Magnesium(Unknown Dose) 1 tab PO W/SUPPER 03/13/24 03/13/24 History Montelukast [Singulair] 10 mg PO W/SUPPER 03/13/24 03/13/24 History Omeprazole 40 mg PO DAILY 03/13/24 03/13/24 History Potassium Chloride [Klor-Con 10 ER] 10 meq PO W/SUPPER 03/13/24 03/13/24 History Tamoxifen [Nolvadex] 10 mg PO Q2D 03/13/24 03/13/24 History Venlafaxine HCl ER [Effexor Xr] 225 mg PO AC-BRKFST 03/13/24 03/13/24 History Vitamin B-12(Unknown Dose) 1 tab PO W/SUPPER 03/13/24 03/13/24 History Vitamin D3(Unknown Dose) 1 tab PO W/SUPPER 03/13/24 03/13/24 History dilTIAZem HCL [dilTIAZem HCL 24Hr 180 mg PO W/SUPPER 03/13/24 03/13/24 History ER (LA)] metFORMIN HCL ER [Glucophage XR] 500 mg PO W/SUPPER 03/13/24 03/13/24 History Allergies Allergy/AdvReac Type Severity Reaction Status Date / Time amoxicillin trihydrate Allergy Rash/Hives Verified 03/13/24 12:37 [From Augmentin] Penicillins Allergy Rash/Hives Verified 03/13/24 12:37 on face potassium clavulanate Allergy Rash/Hives Verified 03/13/24 12:37 [From Augmentin] Physical Exam Vitals: Vital Signs Temp Pulse Resp BP Pulse Ox 03/13/24 18:31 98.8 F 105 H 18 152/103 98 03/13/24 16:01 102 H 16 150/101 91 L 03/13/24 14:31 16 151/92 03/13/24 13:13 86 17 139/87 90 L 03/13/24 12:21 84 18 140/91 93 L 03/13/24 11:07 79 18 153/92 92 L 03/13/24 09:02 98.4 F 78 22 162/95 99 Intake and Output 03/13/24 03/13/24 03/13/24 06:59 14:59 22:59 Other: Weight 72.575 kg Results CBC & Chem 7: 03/13/24 09:42 03/13/24 09:42 Labs: Abnormal Lab Results - Last 24 Hours (Table) 03/13/24 03/13/24 03/13/24 Range/Units 09:42 09:42 09:42 MCHC 30.7 L (31.0-37.0) g/dL RDW 16.2 H (11.5-15.5) % Plt Count 121 L (150-450) k/uL Potassium 3.1 L (3.5-5.1) mmol/L Glucose 129 H (74-99) mg/dL Plasma Lactic Acid Breezy 2.1 H* (0.7-2.0) mmol/L AST 53 H (14-36) U/L Urine Appearance (Clear) Urine Glucose (UA) (Negative) Urine Blood (Negative) Urine Nitrite (Negative) Ur Leukocyte Esterase (Negative) Urine RBC (0-5) /hpf Urine WBC (0-5) /hpf Urine WBC Clumps (None) /hpf Urine Bacteria (None) /hpf Hyaline Casts (0-2) /lpf Urine Mucus (None) /hpf 03/13/24 Range/Units 10:32 MCHC (31.0-37.0) g/dL RDW (11.5-15.5) % Plt Count (150-450) k/uL Potassium (3.5-5.1) mmol/L Glucose (74-99) mg/dL Plasma Lactic Acid Breezy (0.7-2.0) mmol/L AST (14-36) U/L Urine Appearance Cloudy H (Clear) Urine Glucose (UA) 4+ H (Negative) Urine Blood Large H (Negative) Urine Nitrite Positive H (Negative) Ur Leukocyte Esterase Large H (Negative) Urine RBC 34 H (0-5) /hpf Urine WBC 139 H (0-5) /hpf Urine WBC Clumps Few H (None) /hpf Urine Bacteria Moderate H (None) /hpf Hyaline Casts 3 H (0-2) /lpf Urine Mucus Rare H (None) /hpf
[2024-03-14 06:36] LABS: Glucose,Whole Blood 114 mg/dL (70-110)
[2024-03-14] MEDS: INSULIN ASPART (NovoLOG) 100 UNIT/ML VIAL SQ SCH (06:41)
[2024-03-14] MEDS: PANTOPRAZOLE 40 MG TABLET PO SCH (06:45)
[2024-03-14] MEDS: LEVOTHYROXINE 25 MCG TAB PO SCH (06:45)
[2024-03-14] MEDS: DAPAGLIFLOZIN PROPANEDIOL 5 MG TABLET PO SCH (06:45)
[2024-03-14] MEDS: VENLAFAXINE HCL ER 75 MG CAP PO SCH (06:45)
[2024-03-14] MEDS: TAMSULOSIN 0.4 MG CAP.ER.24H PO SCH (08:12)
[2024-03-14] MEDS: BISOPROLOL-HCTZ 5-6.25 MG 1 EACH TAB PO SCH (08:12)
[2024-03-14] MEDS: ENOXAPARIN 40 MG/0.4 ML SYRINGE SQ SCH (08:28)
[2024-03-14] MEDS: TAMOXIFEN 10 MG TAB PO SCH (08:50)
[2024-03-14 08:59] LABS: ALT 22 U/L (8-44); AST 37 U/L (13-35); Albumin 3.3 g/dL (3.8-4.9); Albumin/Globulin Ratio 1.18 Ratio (1.60-3.17); Alkaline Phosphatase 54 U/L (41-126); BUN/Creat Ratio 11.62 Ratio (12.00-20.00); Blood Urea Nitrogen 9.3 mg/dL (9.0-27.0); Calcium 8.1 mg/dL (8.7-10.3); Carbon Dioxide 24.2 mmol/L (21.6-31.8); Chloride 107 mmol/L (96-109); Globulin 2.8 g/dL (1.6-3.3); Glucose 120 mg/dL (70-110); Potassium 3.2 mmol/L (3.5-5.5); Sodium 141 mmol/L (135-145); Total Bilirubin 0.4 mg/dL (0.3-1.2); Total Protein 6.1 g/dL (6.2-8.2)
[2024-03-14] MEDS ORDERED: NON FORMULARY DRUG (Omeprazole [Omeprazole] 40 MG Capsule.Dr) PO SCH (09:00)
[2024-03-14] MEDS: POTASSIUM CHLORIDE ER 20 MEQ TAB.ER PO STA (10:06)
[2024-03-14 10:12] LABS: Basophils # (A) 0.06 X 10*3/uL (0.00-0.10); Basophils % (A) 0.8 %; Eosinophils # (A) 0.02 X 10*3/uL (0.04-0.35); Eosinophils % (A) 0.3 %; HCT 35.9 % (37.2-46.3); HGB 10.8 g/dL (12.0-15.0); Lymphocytes # (A) 1.43 X 10*3/uL (0.90-5.00); Lymphocytes % (A) 19.7 %; MCH 27.1 pg (27.0-32.0); MCHC 30.1 g/dL (32.0-37.0); Mean Platelet Volume 12.2 FL (9.5-12.2); Monocytes # (A) 0.71 X 10*3/uL (0.20-1.00); Monocytes % (A) 9.8 %; NRBC Per 100 WBC 0 X 10*3/uL (0.00-0.01); Neutrophils # (A) 5.02 X 10*3/uL (1.80-7.70); Neutrophils % (A) 69.1 %; Platelet Count 104 X 10*3/uL (140-440); RBC 3.99 X 10*6/uL (4.10-5.20); RDW 17.1 % (11.5-14.5); WBC 7.26 X 10*3/uL (4.50-10.00)
[2024-03-14 11:59] LABS: Glucose,Whole Blood 99 mg/dL (70-110)
--- NOTE | 2024-03-14 12:00 | P.GSCN ---
History of Present Illness Consult date: 03/14/24 Reason for Consult: Left ureteral stone, bilateral hydro History of present illness: This is a 78-year-old female history of a 3 mm left-sided proximal stone with hydronephrosis. She presented to the ER with left-sided flank pain associated w ith nausea. Denies any dysuria, gross hematuria or fevers or chills. Does have a strong history of kidney stones and has required multiple interventions before. She follows up at [facility] for her kidney stones. In the ER she underwent a CT abdomen pelvis that showed evidence of a 3 mm proximal stone with hydronephrosis, there is also mild right-sided hydronephrosis on the CT. CT also showed multiple nonobstructing stones. She does have a known history of medullary sponge kidney. Urinalysis on presentation is consistent with a UTI. On evaluation this morning she is having mild left flank pain. Review of Systems - Constitutional Denies fever, Denies weight loss - Cardiovascular Denies chest pain, Denies shortness of breath - Respiratory Denies cough, Denies 7 - Gastrointestinal Reports abdominal pain, Reports nausea, Denies vomiting - Genitourinary Genitourinary: Reports flank pain, Denies dysuria, Denies hematuria - Neurological Denies headaches, Denies syncope Past Medical History Past Medical History: Cancer, Diabetes Mellitus, GERD/Reflux, Hyperlipidemia, Hypertension, Osteoarthritis (OA), Pneumonia, Thyroid Disorder Additional Past Medical History / Comment(s): L breast cancer with lumpectomy/radiation, UTI,SEE DR DAY'S HISTORY AND PHYSICAL FOR CARDIAC HISTORY , kidney stones, chronic hypokalemia, hypothyroid, iron deficiency anemia, sinus problems, R upper arm varicosity, arthritis in R hand and neck, osteopenia. History of Any Multi-Drug Resistant Organisms: None Reported Past Surgical History: Appendectomy, Bowel Resection, Breast Surgery, Chol ecystectomy, Hysterectomy, Joint Replacement, Orthopedic Surgery, Tonsillectomy Additional Past Surgical History / Comment(s): open cholecystectomy many years ago, aidan hip replacements, low back surgery, L hand tendon surgery, cystoscopies, kidney stone removal (lithotripsy/stents-all out now), L breast lumpectomy, bilateral cataract surgery with lens implants, colonoscopies, Migel fundoplication.RIGHT BREAST-LUMPECTOMY Past Anesthesia/Blood Transfusion Reactions: Postoperative Nausea & Vomiting (PONV) Past Psychological History: Anxiety, Depression Smoking Status: Never smoker Past Alcohol Use History: None Reported Past Drug Use History: None Reported - Past Family History Mother Family Medical History: Cancer Additional Family Medical History / Comment(s): Mother had pancreatic cancer. She of this in her early 70s. Daughter(s) Family Medical History: Cancer Additional Family Medical History / Comment(s): Patient has 2 daughters and one of her daughters is BRCA gene positive. Daughter had colon cancer. Son(s) Family Medical History: No Reported History Additional Family Medical History / Comment(s): Patient has one son with no major medical problems. Sister(s) Family Medical History: Cancer Additional Family Medical History / Comment(s): Patient has 2 sisters with thyr oid disease and one with breast cancer. Father Family Medical History: Myocardial Infarction (CT) Additional Family Medical History / Comment(s): Father at the age of 52 yrs from a [place]. He was a smoker. Medications and Allergies Home Medications Medication Instructions Recorded Confirmed Type ALPRAZolam [Xanax] 0.5 mg PO HS 02/04/15 03/13/24 History Atorvastatin [Lipitor] 10 mg PO W/SUPPER 02/10/18 03/13/24 History HYDROcodone/APAP 10-325MG [[place] 1 tab PO Q12H PRN 02/10/18 03/13/24 History 10-325] Fluticasone Nasal [place] [Flonase 1 spr EA NOSTRIL HS 02/08/19 03/13/24 History Nasal [place]] Levothyroxine Sodium [Synthroid] 25 mcg PO AC-BRKFST 02/08/19 03/13/24 History Bisoprolol-Hctz 5-6.25 mg [Z[place] 1 tab PO DAILY 03/13/24 03/13/24 History 5-6.25 MG] Caltrate(Unknown Dose) 1 tab PO W/SUPPER 03/13/24 03/13/24 History Dapagliflozin Propanediol [Farxiga] 5 mg PO AC-BRKFST 03/13/24 03/13/24 History Ibuprofen [Motrin] 800 mg PO Q6H PRN 03/13/24 03/13/24 History Magnesium(Unknown Dose) 1 tab PO W/SUPPER 03/13/24 03/13/24 History Montelukast [Singulair] 10 mg PO W/SUPPER 03/13/24 03/13/24 History Omeprazole 40 mg PO DAILY 03/13/24 03/13/24 History Potassium Chloride [Klor-Con 10 ER] 10 meq PO W/SUPPER 03/13/24 03/13/24 History Tamoxifen [Nolvadex] 10 mg PO Q2D 03/13/24 03/13/24 History Venlafaxine HCl ER [Effexor Xr] 225 mg PO AC-BRKFST 03/13/24 03/13/24 History Vitamin B-12(Unknown Dose) 1 tab PO W/SUPPER 03/13/24 03/13/24 History Vitamin D3(Unknown Dose) 1 tab PO W/SUPPER 03/13/24 03/13/24 History dilTIAZem HCL [dilTIAZem HCL 24Hr 180 mg PO W/SUPPER 03/13/24 03/13/24 History ER ([place])] metFORMIN HCL ER [Glucophage XR] 500 mg PO W/SUPPER 03/13/24 03/13/24 History Allergies Allergy/AdvReac Type Severity Reaction Status Date / Time amoxicillin trihydrate Allergy Rash/Hives Verified 03/13/24 12:37 [From Augmentin] Penicillins Allergy Rash/Hives Verified 03/13/24 12:37 on face potassium clavulanate Allergy Rash/Hives Verified 03/13/24 12:37 [From Augmentin] Surgical - Exam Vital Signs Temp Pulse Resp BP Pulse Ox 98.4 F 78 22 162/95 99 03/13/24 09:02 03/13/24 09:02 03/13/24 09:02 03/13/24 09:02 03/13/24 09:02 - General no distress, moderate pain - Eyes normal ocular movement, no pale - ENT normal nares, normal mucosa - Respiratory normal expansion, normal respiratory effort - Abdomen Abdomen: soft, non tender, no distended - Psychiatric oriented to time, oriented to person, oriented to place Results - Labs 03/14/24 03:21 03/14/24 03:21 Abnormal Lab Results - Last 24 Hours (Table) 03/14/24 03/14/24 03/14/24 Range/Units 03:21 03:21 06:35 RBC 3.99 L (4.10-5.20) X 10*6/uL Hgb 10.8 L (12.0-15.0) g/dL Hct 35.9 L (37.2-46.3) % MCHC 30.1 L (32.0-37.0) g/dL RDW 17.1 H (11.5-14.5) % Plt Count 104 L (140-440) X 10*3/uL Eosinophils # 0.02 L (0.04-0.35) X 10*3/uL Potassium 3.2 L (3.5-5.5) mmol/L BUN/Creatinine Ratio 11.62 L (12.00-20.00) Ratio Glucose 120 H (70-110) mg/dL POC Glucose (mg/dL) 114 H (70-110) mg/dL Calcium 8.1 L (8.7-10.3) mg/dL AST 37 H (13-35) U/L Total Protein 6.1 L (6.2-8.2) g/dL Albumin 3.3 L (3.8-4.9) g/dL Albumin/Globulin Ratio 1.18 L (1.60-3.17) Ratio Microbiology - Last 24 Hours (Table) 03/13/24 10:32 Urine Culture - Preliminary Urine,Voided Gram Neg Bacilli Diabetes panel 03/14/24 Range/Units 03:21 Sodium 141 (135-145) mmol/L Potassium 3.2 L (3.5-5.5) mmol/L Chloride 107 (96-109) mmol/L Carbon Dioxide 24.2 (21.6-31.8) mmol/L BUN 9.3 (9.0-27.0) mg/dL Creatinine 0.8 (0.6-1.5) mg/dL Glucose 120 H (70-110) mg/dL Calcium 8.1 L (8.7-10.3) mg/dL AST 37 H (13-35) U/L ALT 22 (8-44) U/L Alkaline Phosphatase 54 (41-126) U/L Total Protein 6.1 L (6.2-8.2) g/dL Albumin 3.3 L (3.8-4.9) g/dL Calcium panel 03/14/24 Range/Units 03:21 Calcium 8.1 L (8.7-10.3) mg/dL Albumin 3.3 L (3.8-4.9) g/dL Pituitary panel 03/14/24 Range/Units 03:21 Sodium 141 (135-145) mmol/L Potassium 3.2 L (3.5-5.5) mmol/L Chloride 107 (96-109) mmol/L Carbon Dioxide 24.2 (21.6-31.8) mmol/L BUN 9.3 (9.0-27.0) mg/dL Creatinine 0.8 (0.6-1.5) mg/dL Glucose 120 H (70-110) mg/dL Calcium 8.1 L (8.7-10.3) mg/dL Adrenal panel 03/14/24 Range/Units 03:21 Sodium 141 (135-145) mmol/L Potassium 3.2 L (3.5-5.5) mmol/L Chloride 107 (96-109) mmol/L Carbon Dioxide 24.2 (21.6-31.8) mmol/L BUN 9.3 (9.0-27.0) mg/dL Creatinine 0.8 (0.6-1.5) mg/dL Glucose 120 H (70-110) mg/dL Calcium 8.1 L (8.7-10.3) mg/dL Total Bilirubin 0.4 (0.3-1.2) mg/dL AST 37 H (13-35) U/L ALT 22 (8-44) U/L Alkaline Phosphatase 54 (41-126) U/L Total Protein 6.1 L (6.2-8.2) g/dL Albumin 3.3 L (3.8-4.9) g/dL Assessment and Plan Assessment: 78-year-old female history of medullary sponge kidney, presents to the hospital with a UTI and a 3 mm left-sided proximal stone, her pain is manageable this morning. Discussed with her at this point recommend continue IV antibiotics and we will reassess tomorrow, if she continues to have pain then we will proceed with left-sided stent insertion, but if pain resolves then she can be discharged home for a trial of medical expulsive therapy if she fails to pass the stone and then we will proceed with left-sided ureteroscopy with homing laser. -Will keep n.p.o. after midnight, she will be tentatively scheduled for left- sided stent insertion tomorrow,
[2024-03-14] MEDS: CEFEPIME 2 GM in SODIUM CHLORIDE 0.9% 100 ML IVPB SCH (15:15)
[2024-03-14 16:29] LABS: Glucose,Whole Blood 97 mg/dL (70-110)
[2024-03-14] MEDS: POTASSIUM CHLORIDE ER 10 MEQ TAB.ER.PRT PO SCH (16:30)
[2024-03-14] MEDS: CHOLECALCIFEROL 25 MCG (1000 IU) TABLET PO SCH (16:31)
[2024-03-14] MEDS: CYANOCOBALAMIN 500 MCG TAB PO SCH (16:31)
[2024-03-14] MEDS: MONTELUKAST 10 MG TAB PO SCH (16:31)
[2024-03-14 20:49] LABS: Glucose,Whole Blood 116 mg/dL (70-110)
[2024-03-14] MEDS: MELATONIN 5 MG TABLET PO SCH (21:31)
[2024-03-15 06:35] LABS: Glucose,Whole Blood 103 mg/dL (70-110)
[2024-03-15 07:39] VITALS: BP 170/80; PULSE 74; RESP 15; TEMP 97.5
[2024-03-15 10:57] LABS: Glucose,Whole Blood 93 mg/dL (70-110)
--- NOTE | 2024-03-15 13:04 | P.PN ---
Subjective Progress Note Date: 03/14/24 HISTORY OF PRESENT ILLNESS: This is a 78-year-old female with a previous medical history signif icant for hypertension and hypertensive cardiovascular disease hyperlipidemia,, hypothyroidism, diabetes mellitus type 2, GERD with esophagitis, malignant neoplasm of left breast, status post left breast lumpectomy with radiation therapy, history of kidney stones, iron deficiency anemia secondary to blood loss chronic, patient has been under the care of Dr. Seay at [facility] for recurrent kidney stones, as matter fact she was seen by him about a month ago and she was given the clearance to come back and see me in a year from now, apparently the patient woke up in the morning with severe abdominal pain located in the left side radiating to the front of the abdomen associated with diaphoresis and nausea but no vomiting, she had contacted her granddaughter to come pick her up to go to the emergency department for evaluation, she went to the ER, had a CT scan of the abdomen and pelvis that did show evidence of obstructing 3 mm proximal left ureteral stone with bilateral hydroureteronephrosis with no evidence of any obstruction on the right side, however there was evidence of fat stranding in the left side due to possible pyelonephritis as well, urinalysis was suggestive of urinary tract infection as well, she was started on IV antibiotic in the form of cefepime 2 g piggyback every 8 hours, urine culture and blood culture were sent, urology consultation was obtained for possible intervention tomorrow morning, she was started on IV fluid resuscitation in the form of normal saline at 100 cc an hour, she was placed on Dilaudid 0.5 mg IV push every 3 hours, along with her hydrocodone twice every day as needed, patient will be seen by urology tomorrow morning she will be kept on nothing per mouth midnight. 03/14: Patient is doing better today, she is laying down in bed in no apparent distress, she is eating better, she has no nausea or vomiting at this time, she did not sleep very well last night, she was seen earlier by urology, it was recommended continue conservative management, unless the patient is not getting better over the next 24 hours then she will have an intervention, likely she will be able to pass the stone on her own, patient feeling a lot better continue fluid resuscitation continue IV antibiotic, await final result of the culture of the urine. REVIEW OF SYSTEMS: Constitutional: No documented fever, positive for chills, night sweats. No weight change. No weakness, fatigue or lethargy. No daytime sleepiness. EENT: No headache. No blurred vision or double vision, no loss of vision. No loss of Hearing, no ringing in the ears, no dizziness. No nasal drainage or congestion. No epistaxis. No sore throat. Lungs: No shortness of breath, no cough, no sputum production. No wheezing. Reports dyspnea with activity. Cardiovascular: No chest pain, no lower extremity edema. No palpitations. No paroxysmal nocturnal dyspnea. No orthopnea. No lightheadedness or dizziness. No syncopal episodes. Abdominal: Reports abdominal pain. Positive for nausea, no vomiting. No diarrhea. No constipation. No bloody or tarry stools reports loss of appetite. Genitourinary: Positive for dysuria, increased frequency, urgency. No urinary retention. Positive for hematuria. Musculoskeletal: No myalgias. No muscle weakness, no gait dysfunction, no frequent falls. No back pain. No neck pain. Integumentary: No wounds, no lesions. No rash or pruritus. No unusual bruising. No change in hair or nails. Neurologic: No aphasia. No facial droop. No change in mentation. No head injury. No headache. No paralysis. No paresthesia. Psychiatric: No depression. Positive for anxiety. No mood swings. Endocrine: No abnormal blood sugars. No weight change. PHYSICAL EXAMINATION: General: 78-year-old female examined in bed in mild to moderate distress. HEENT: Head is atraumatic, normocephalic, pupils were equal round reactive to light and recommendation, extraocular muscle movement were intact, sclera nonicteric, conjunctivae were pale, mucous membranes of the mouth are somewhat dry. Neck: Supple, no JVP, normal carotid upstroke bilaterally, no lymphadenopathy. Chest: Decreased breath sounds at the bases, few rhonchi, no expiratory wheezes, no chest wall tenderness, no intercostal retractions. Heart: First heart sound is normal, second heart sounds normal there is systolic ejection murmur 2/6 located left sternal border Abdomen: Soft, mild tenderness to the left upper quadrant suprapubic area, nondistended, positive bowel sounds. Extremities: There is no edema no calf tenderness DP +2 bilaterally. Neurologic examination: Patient is awake alert and oriented x3, cranial nerves II-12 appear grossly intact, muscle power were 5 out of 5 in upper extremities and 5 out of 5 in bilateral lower extremities, deep tendon reflexes normal bilaterally. ASSESSMENT AND PLAN: 1. Acute bilateral hydroureteronephrosis with obstructing stone 3 mm in the proximal left ureter continue IV fluid resuscitation in the form of normal saline at 100 cc an hour, start the patient on tamsulosin 0.4 mg orally once every day, consult urology for s continue the patient on cefepime 2 g IV piggyback every 8 hours, urine culture blood culture will be obtained, start the patient also on Dilaudid 0.5 mg IV push every 3 hours as needed, continue hydrocodone every 6 hours as needed. Follow-up with the patient very closely. 2. Lactic acidosis. Continue patient on IV fluid resuscitation . Resolved. 3. Left pyelonephritis with SIRS. Blood cultures, urine culture, continue cefepime 2 g piggyback every 8 hours, monitor the patient's symptoms very closely. 4. Recurrent bilateral kidney stones status post multiple intervention in the past. Urology consultation is in order. 5. Hypertension and hypertensive cardiovascular disease. Patient on Ziac 5/6.25 mg orally once every day, as well as Cardizem CD1 80 mg once every day monitor the patient blood pressure very closely. 6. Mixed hyperlipidemia. Continue patient on atorvastatin 10 mg once every day, monitor lipid panel, keep LDL 55-70. 7. Diabetes mellitus type 2. Continue patient on Farxiga 5 mg orally once every day. Start the patient on sliding scale insulin as well. 8.. Hypothyroidism .continue levothyroxine 25 mcg orally once every day. 9. Allergic rhinitis. Continue montelukast 10 mg once every day as well as Flonase nasal spray 1 puff in each nostril once every day. 10. History of SVT status post ablation. 11. Breast cancer status post left lumpectomy with radiation therapy continue tamoxifen 10 mg every other day. 12. Disorder. Continue patient on Xanax 0.5 mg at bedtime. 13. Major depressive disorder. Continue patient on venlafaxine to 25 mg orally once every day. 14. DVT prophylaxis. Continue patient on Lovenox 40 mg subcutaneous every 24 hours. 15. Prophylaxis. Continue patient on Protonix 40 mg IV push every 24 hours. 16. Likely home in the next 24 hours. Objective - Vital Signs Vital signs: Vital Signs Temp 99.4 F 03/14/24 00:49 Pulse 98 03/14/24 00:49 Resp 17 03/14/24 00:49 BP 115/62 03/14/24 00:49 Pulse Ox 96 03/14/24 00:49 FiO2 Intake & Output 03/13/24 03/14/24 03/14/24 18:59 06:59 18:59 Weight 72.575 kg 72.575 kg Other: Voiding Method Toilet # Voids 1 - Labs CBC & Chem 7: 03/14/24 03:21 03/14/24 03:21 Labs: Abnormal Lab Results - Last 24 Hours (Table) 03/13/24 03/13/24 03/13/24 Range/Units 09:42 09:42 09:42 MCHC 30.7 L (31.0-37.0) g/dL RDW 16.2 H (11.5-15.5) % Plt Count 121 L (150-450) k/uL Potassium 3.1 L (3.5-5.1) mmol/L Glucose 129 H (74-99) mg/dL POC Glucose (mg/dL) (70-110) mg/dL Plasma Lactic Acid Breezy 2.1 H* (0.7-2.0) mmol/L AST 53 H (14-36) U/L Urine Appearance (Clear) Urine Glucose (UA) (Negative) Urine Blood (Negative) Urine Nitrite (Negative) Ur Leukocyte Esterase (Negative) Urine RBC (0-5) /hpf Urine WBC (0-5) /hpf Urine WBC Clumps (None) /hpf Urine Bacteria (None) /hpf Hyaline Casts (0-2) /lpf Urine Mucus (None) /hpf 03/13/24 03/14/24 Range/Units 10:32 06:35 MCHC (31.0-37.0) g/dL RDW (11.5-15.5) % Plt Count (150-450) k/uL Potassium (3.5-5.1) mmol/L Glucose (74-99) mg/dL POC Glucose (mg/dL) 114 H (70-110) mg/dL Plasma Lactic Acid Breezy (0.7-2.0) mmol/L AST (14-36) U/L Urine Appearance Cloudy H (Clear) Urine Glucose (UA) 4+ H (Negative) Urine Blood Large H (Negative) Urine Nitrite Positive H (Negative) Ur Leukocyte Esterase Large H (Negative) Urine RBC 34 H (0-5) /hpf Urine WBC 139 H (0-5) /hpf Urine WBC Clumps Few H (None) /hpf Urine Bacteria Moderate H (None) /hpf Hyaline Casts 3 H (0-2) /lpf Urine Mucus Rare H (None) /hpf
--- NOTE | 2024-03-15 13:19 | P.DS ---
Providers Date of admission: 03/13/24 12:41 Expected date of discharge: 03/15/24 Attending physician: Sebastian Hughes Consults: 03/13/24 12:38 Consult Physician Routine Consulting Provider: Bryan Clarke Consult Reason/Comments: infected ureterolithasis Do you want consulting provider notified?: Already Contacted [facility] HISTORY OF PRESENT ILLNESS: This is a 78-year-old female with a previous medical history significant for hypertension and hypertensive cardiovascular disease hyperlipidemia,, hypothyroidism, diabetes mellitus type 2, GERD with esophagitis, malignant neoplasm of left breast, status post left breast lumpectomy with radiation therapy, history of kidney stones, iron deficiency anemia secondary to blood loss chronic, patient has been under the care of Dr. Seay at [facility] for recurrent kidney stones, as matter fact she was seen by him about a month ago and she was given the clearance to come back and see me in a year from now, apparently the patient woke up in the morning with severe abdominal pain located in the left side radiating to the front of the abdomen associated with diaphoresis and nausea but no vomiting, she had contacted her granddaughter to come pick her up to go to the emergency department for evaluation, she went to the ER, had a CT scan of the abdomen and pelvis that did show evidence of obstructing 3 mm proximal left ureteral stone with bilateral hydroureteronephrosis with no evidence of any obstruction on the right side, however there was evidence of fat stranding in the left side due to possible pyelonephritis as well, urinalysis was suggestive of urinary tract infection as well, she was started on IV antibiotic in the form of cefepime 2 g piggyback every 8 hours, urine culture and blood culture were sent, urology consultation was obtained for possible intervention tomorrow morning, she was started on IV fluid resuscitation in the form of normal saline at 100 cc an hour, she was placed on Dilaudid 0.5 mg IV push every 3 hours, along with her hydrocodone twice every day as needed, patient will be seen by urology tomorrow morning she will be kept on nothing per mouth midnight. 03/14: Patient is doing better today, she is laying down in bed in no apparent distress, she is eating better, she has no nausea or vomiting at this time, she did not sleep very well last night, she was seen earlier by urology, it was recommended continue conservative management, unless the patient is not getting better over the next 24 hours then she will have an intervention, likely she will be able to pass the stone on her own, patient feeling a lot better continue fluid resuscitation continue IV antibiotic, await final result of the culture of the urine. 03/15: Patient is doing better today, she denies any chest pain, shortness of breath, she is tolerating treatment very well, urine cultures positive for Klebsiella oxytoca, I will switch the patient to ciprofloxacin 500 mg orally twice every day for the next 7 days, follow-up with urology as an outpatient, continue to increase the fluid intake, continue tamsulosin, will follow-up with the patient very closely. Discharge diagnoses: 1. Acute bilateral hydroureteronephrosis with obstructing stone 3 mm in the proximal left ureter 2. Lactic acidosis. 3. Left pyelonephritis with Klebsiella oxytoca associated with SIRS. 4. Recurrent bilateral kidney stones status post multiple intervention in the past. 5. Hypertension and hypertensive cardiovascular disease. 6. Mixed hyperlipidemia. 7. Diabetes mellitus type 2. 8.. Hypothyroidism . 9. Allergic rhinitis. 10. History of SVT status post ablation. 11. Breast cancer status post left lumpectomy with radiation therapy 12. Anxiety disorder. 13. Major depressive disorder. Patient Condition at Discharge: Stable Plan - Discharge Summary Discharge Rx Participant: Yes New Discharge Prescriptions: No Action ALPRAZolam [Xanax] 0.5 mg PO HS Atorvastatin [Lipitor] 10 mg PO W/SUPPER HYDROcodone/APAP 10-325MG [[place] 10-325] 1 tab PO Q12H PRN PRN Reason: Pain Levothyroxine Sodium [Synthroid] 25 mcg PO AC-BRKFST Fluticasone Nasal [place] [Flonase Nasal [place]] 1 spr EA NOSTRIL HS Caltrate(Unknown Dose) 1 tab PO W/SUPPER Potassium Chloride [Klor-Con 10 ER] 10 meq PO W/SUPPER Tamoxifen [Nolvadex] 10 mg PO Q2D Bisoprolol-Hctz 5-6.25 mg [Ziac 5-6.25 MG] 1 tab PO DAILY Dapagliflozin Propanediol [Farxiga] 5 mg PO AC-BRKFST Magnesium(Unknown Dose) 1 tab PO W/SUPPER Vitamin B-12(Unknown Dose) 1 tab PO W/SUPPER Vitamin D3(Unknown Dose) 1 tab PO W/SUPPER dilTIAZem HCL [dilTIAZem HCL 24Hr ER (LA)] 180 mg PO W/SUPPER Ibuprofen [Motrin] 800 mg PO Q6H PRN PRN Reason: Pain metFORMIN HCL ER [Glucophage XR] 500 mg PO W/SUPPER Montelukast [Singulair] 10 mg PO W/SUPPER Venlafaxine HCl ER [Effexor Xr] 225 mg PO [facility] Omeprazole 40 mg PO DAILY Discharge Medication List ALPRAZolam [Xanax] 0.5 mg PO HS 02/04/15 [History] Atorvastatin [Lipitor] 10 mg PO W/SUPPER 02/10/18 [History] HYDROcodone/APAP 10-325MG [[place] 10-325] 1 tab PO Q12H PRN 02/10/18 [History] Fluticasone Nasal [place] [Flonase Nasal [place]] 1 spr EA NOSTRIL 02/08/19 [History] Levothyroxine Sodium [Synthroid] 25 mcg PO AC-BRKT 02/08/19 [History] Bisoprolol-Hctz 5-6.25 mg [Ziac 5-6.25 MG] 1 tab PO DAILY 03/13/24 [History] Caltrate(Unknown Dose) 1 tab PO W/SUPPER 03/13/24 [History] Dapagliflozin Propanediol [Farxiga] 5 mg PO AC-BRKT 03/13/24 [History] Ibuprofen [Motrin] 800 mg PO Q6H PRN 03/13/24 [History] Magnesium(Unknown Dose) 1 tab PO W/SUPPER 03/13/24 [History] Montelukast [Singulair] 10 mg PO W/SUPPER 03/13/24 [History] Omeprazole 40 mg PO DAILY 03/13/24 [History] Potassium Chloride [Klor-Con 10 ER] 10 meq PO W/SUPPER 03/13/24 [History] Tamoxifen [Nolvadex] 10 mg PO Q2D 03/13/24 [History] Venlafaxine HCl ER [Effexor Xr] 225 mg PO AC-BRKFST 03/13/24 [History] Vitamin B-12(Unknown Dose) 1 tab PO W/SUPPER 03/13/24 [History] Vitamin D3(Unknown Dose) 1 tab PO W/SUPPER 03/13/24 [History] dilTIAZem HCL [dilTIAZem HCL 24Hr ER (LA)] 180 mg PO W/SUPPER 03/13/24 [History] metFORMIN HCL ER [Glucophage XR] 500 mg PO W/SUPPER 03/13/24 [History] Follow up Appointment(s)/Referral(s): Sebastian Hughes MD [Primary Care Provider] - 1-2 days
--- NOTE | 2024-03-15 17:46 | P.PN ---
Subjective Progress Note Date: 03/15/24 Having minimal left flank pain, denies any nausea or vomiting Objective - Vital Signs Vital signs: Vital Signs Temp 97.5 F L 03/15/24 07:01 Pulse 74 03/15/24 07:01 Resp 15 03/15/24 07:01 BP 170/80 03/15/24 07:01 Pulse Ox 92 L 03/15/24 07:01 FiO2 Intake & Output 03/14/24 03/15/24 03/15/24 18:59 06:59 18:59 Intake Total 900 Balance 900 Intake: Intake, IV Titration 900 Amount Cefepime 2 gm In Sodium 100 Chloride 0.9% 100 ml @ 25 mls/hr IVPB Q12H [facility] Rx# :[id number] Sodium Chloride 0.9% 1, 800 000 ml @ 100 mls/hr IV . Q10H [facility] Rx#:[id number] Other: Voiding Method Toilet Toilet Toilet # Voids 2 3 - Constitutional General appearance: Present: no acute distress - Gastrointestinal General gastrointestinal: Present: soft. Absent: distended, tenderness - Psychiatric Psychiatric: Present: A&O x's 3 - Labs CBC & Chem 7: 03/14/24 03:21 03/14/24 03:21 Labs: Abnormal Lab Results - Last 24 Hours (Table) 03/14/24 Range/Units 20:47 POC Glucose (mg/dL) 116 H (70-110) mg/dL Microbiology - Last 24 Hours (Table) 03/13/24 12:19 Blood Culture - Preliminary Blood 03/13/24 10:32 Urine Culture - Final Urine,Voided Klebsiella oxytoca 03/13/24 19:37 Blood Culture - Preliminary Blood Assessment and Plan Assessment: 78-year-old female history of medullary sponge kidney, presents to the hospital with a UTI and a 3 mm left-sided proximal stone, having minimal flank pain. Discussed with given the minimal symptoms we will continue with medical expulsive therapy, discussed if she fails to pass the stone that we will proceed with left-sided ureteroscopy with holmium laser next week, but if she passes the stone we will hold off on any further surgical intervention -Okay for discharge from urology standpoint, recommend discharging home with p.o. antibiotics -Will arrange for follow-up next week, if fails to pass the stone will proceed with left-sided ureteroscopy with holmium laser
== END 2024-03-15 15:12 | disposition home or self-care (01) | DRG 690 ==
LOC: EC 08:57 → 4SSUR 12:41
PROVIDERS: ADMIT Internal Medicine; ATTEND Internal Medicine
DX: N13.6 Pyonephrosis (principal); E87.20 Acidosis, unspecified; R65.10 Systemic inflammatory response syndrome (SIRS) of non-infectious origin without acute organ dysfunction; N18.6 End stage renal disease; I13.10 Hypertensive heart and chronic kidney disease without heart failure, with stage 1 through stage 4 chronic kidney disease, or unspecified chronic kidney disease; N18.2 Chronic kidney disease, stage 2 (mild); E11.22 Type 2 diabetes mellitus with diabetic chronic kidney disease; E78.2 Mixed hyperlipidemia; F41.9 Anxiety disorder, unspecified; E03.9 Hypothyroidism, unspecified; Z79.890 Hormone replacement therapy; F32.9 Major depressive disorder, single episode, unspecified; J30.9 Allergic rhinitis, unspecified; M19.041 Primary osteoarthritis, right hand; M85.841 Other specified disorders of bone density and structure, right hand; Z79.84 Long term (current) use of oral hypoglycemic drugs; Z82.49 Family history of ischemic heart disease and other diseases of the circulatory system; Z87.442 Personal history of urinary calculi; Z85.3 Personal history of malignant neoplasm of breast; Z90.49 Acquired absence of other specified parts of digestive tract; Z90.710 Acquired absence of both cervix and uterus; Z96.1 Presence of intraocular lens; Z98.41 Cataract extraction status, right eye; Z98.42 Cataract extraction status, left eye; Z96.643 Presence of artificial hip joint, bilateral; Z88.1 Allergy status to other antibiotic agents; Z88.0 Allergy status to penicillin; Z88.8 Allergy status to other drugs, medicaments and biological substances; Z87.19 Personal history of other diseases of the digestive system
CPT/HCPCS: 36415; 74177; 80053; 81001; 82150; 83605; 83690; 85025; 85610; 85730; 87040; 87077; 87086; 87186; 93005; 96361; 96365; 96366; 96375; 99285

== ENCOUNTER → 2024-03-27 | Outpatient (CLI) | payer MEDICARE ==
--- NOTE | 2024-03-27 13:48 | XR ---
EXAMINATION TYPE: XR KUB DATE OF EXAM: 03/27/2024 1:13 PM COMPARISON: 01/20/2023 CLINICAL INDICATION: Female, 78 years old with history of N20.0 kidney stone; TECHNIQUE: One radiographic view of the abdomen was obtained. FINDINGS: The bowel gas pattern is nonspecific without dilated loops of small or large bowel. . Fecal material and gas are demonstrated throughout the colon and rectum. There is no evidence for organomegaly or pneumoperitoneum. The osseous structures are intact. Bilat eral renal calculi measuring up to 8 mm on the right and 7 mm on the left. Right upper quadrant cours e significance. Severe degeneration changes spine. Surgical suture projects over the right lower quad rant. IMPRESSION: 1. Bilateral renal calculi. 2. Nonspecific bowel gas pattern without radiographic evidence for acute process. [facility], , 03/27/2024 1:46 PM
== END | disposition home or self-care (01) ==
LOC: RADXRMAIN 12:31
PROVIDERS: ATTEND Internal Medicine
DX: N20.0 Calculus of kidney (principal); R31.9 Hematuria, unspecified; Z87.442 Personal history of urinary calculi
CPT/HCPCS: 74018

== ENCOUNTER → 2024-04-06 | Outpatient (CLI) | payer MEDICARE ==
--- NOTE | 2024-04-06 12:17 | FL ---
EXAMINATION TYPE: FL barium swallow DATE OF EXAM: 04/06/2024 11:39 AM COMPARISON: 06/27/2020 CLINICAL INDICATION:Female, 78 years old with history of R13.19 OTHER DYSPHAGIA; PHH, TECHNIQUE: The procedure was explained and patient history elicited. All patient questions were ans wered prior to start of procedure. Multiple spot fluoroscopic images of the esophagus were obtained a fter the oral ingestion of effervescent crystals and liquid barium as the contrast agent. Fluoroscopic time:36 sec Fluoroscopic images:0 Radiographs taken: 137 DAP: NOT REPORTED [id number] FINDINGS: The esophagus demonstrates Tertiary contractions are seen with delayed emptying of the esophageal con tents. The esophageal mucosa is otherwise smooth without evidence of focal stricture, ulceration, or abnormal outpouching. No gastroesophageal reflux disease was identified. The esophagus is somewhat p atulous. IMPRESSION: Moderate to severe Esophageal dysmotility with liquid barium. [facility], , 04/06/2024 12:15 PM
== END | disposition home or self-care (01) ==
LOC: RADFLMAIN 10:17
PROVIDERS: ATTEND Internal Medicine
DX: K22.4 Dyskinesia of esophagus (principal); R13.19 Other dysphagia
CPT/HCPCS: 74220

== ENCOUNTER → 2024-09-21 | Outpatient (CLI) | payer MEDICARE ==
[2024-09-21 14:09] LABS: African American GFR (CKD) 85 (>60 ml/min/1.73 sqM); Blood Urea Nitrogen 12 mg/dL (7-17); Non-African American GFR(CKD) 73 (>60 ml/min/1.73 sqM)
--- NOTE | 2024-09-26 14:40 | CT ---
EXAMINATION TYPE: CT urogram wo/w con DATE OF EXAM: 09/21/2024 3:54 PM COMPARISON: None. CLINICAL INDICATION: Female, 78 years old with history of R31.0 gross hematuria, blood in urine, [facility] for kidney stones TECHNIQUE: Axial images were obtained from above the diaphragm to the pubic rami in the axial plane a t 5 mm thick sections. Reconstructed images are reviewed on the computer in the coronal plane. Thre e-D reconstructed images performed through the renal collecting system are performed on separate comp uter by the technologist. MIP imaging performed. CONTRAST: 100 ml mL of Isovue 370. Study performed without Oral Contrast DLP: 2560 mGycm, Automated exposure control for dose reduction was used. FINDINGS: Limited CT sections are obtained the lung bases. Small hiatal hernia is present. CT ABDOMEN: Liver: Normal Spleen: Normal Pancreas: Normal Adrenal glands: The adrenal glands are normal. Gallbladder: Surgically absent Kidneys: There is a 0.6 cm long calcification superior pole right kidney. Punctate calcifications in the lateral mid right kidney. There is a 0.3 cm calcification posterior mid to inferior pole right ki dney. A 0.3 cm calcifications in the mid inferior lateral right kidney. There is a large calcificatio n measuring 1.1 x 0.6 cm mid inferior pole right kidney. Additional calcification within the anterior mid to inferior pole right kidney measuring 0.5 cm. A 0.9 x 0.5 cm calcifications in the mid to infe rior pole left kidney. There is an adjacent 0.8 cm calcification. Faint calcifications in the mid to upper pole left kidney. There is a upper pole left renal calcification measuring 0.5 cm. 0.4 cm calci fications are noted mid to upper pole left kidney. There are several small cortical medullary calcifi cations in the upper pole left kidney. There is a 0.4 cm calcification upper pole left kidney. Within the left renal pelvis is a 0.8 cm calcification. No obstructing renal pelvic calcifications ar e evident. There is mild prominence of the left ureter which extends to the pelvis. Within the pelvis the left ureter has a normal caliber where visualized. The distal ureter is obscured from beam harde kelly artifact from bilateral hip prostheses. There is milder prominence of the right ureter with norm al caliber within the renal pelvis. Lower ureter is not visualized due to beam artifact from the keo ent's bilateral hip prostheses. No masses are evident. Mild-moderate left and minimal right hydronephrosis is present. No cysts are present. Early and delayed imaging was performed through the kidneys and ureters. A right ureteropel livier junction focal stenosis may be present. Aorta: Vascular calcification is within the aorta. Inferior vena cava: Normal. CT PELVIS: Loops of bowel within the abdomen and pelvis are normal. Diverticular changes are within the sigmoid colon This study is without oral contrast limiting bowel evaluation. Appendix: Postsurgical changes are seen. Prior appendectomy or prior bowel surgery at this level like ly present. Urinary bladder: Limited without obvious dependent ossifications. Genitourinary structures: Uterus and ovaries are not identified. Osseous structures: No suspicious lytic or sclerotic lesions. IMPRESSION: 1. There is mild to moderate left hydronephrosis and mild right hydronephrosis. No obstructing etiol ogy is evident. Focal stenosis may be at the right ureteropelvic junction. 2. Multiple bilateral renal calcifications without obstruction. A left renal pelvis calcification wit hout obstruction is present. 3. No obstructing ureteral stones. Consider recent passage of a renal stone in the left ureter. 4. Diverticulosis without acute diverticulitis. [facility], , 09/26/2024 2:38 PM
== END | disposition home or self-care (01) ==
LOC: RADCTMAIN 13:01
PROVIDERS: ATTEND Urology
DX: N28.89 Other specified disorders of kidney and ureter (principal); N13.30 Unspecified hydronephrosis; K57.30 Diverticulosis of large intestine without perforation or abscess without bleeding; R31.0 Gross hematuria; Z87.442 Personal history of urinary calculi
CPT/HCPCS: 82565; 84520; 74178; 36415; 74400; Q9967

== ENCOUNTER → 2024-10-03 | Outpatient (CLI) | payer MEDICARE ==
--- NOTE | 2024-10-04 07:05 | CA ---
Transthoracic Echo Report Name: Nancy Estrada Age: 78 Gender: F : 1945 Exam Date: 10/03/2024 16:01 Exam Location: [facility] Ht (in): 64 Wt (lb): 156 Ordering Physician: Sebastian Hughes MD Attending/Referring Phys: Paper Tube Machine Operator Lala Pineda RDCS Procedure CPT: Indications: I34.0 nonrheumatic mitral valve regurgitation Cardiac Hx: Technical Quality: Fair Contrast 1: Total Dose (mL): Contrast 2: Total Dose (mL): MEASUREMENTS (Male / Female) Normal Values 2D ECHO LV Diastolic Diameter PLAX 4.5 cm 4.2 - 5.9 / 3.9 - 5.3 cm LV Systolic Diameter PLAX 3.4 cm IVS Diastolic Thickness 1.0 cm 0.6 - 1.0 / 0.6 - 0.9 cm LVPW Diastolic Thickness 1.1 cm 0.6 - 1.0 / 0.6 - 0.9 cm LV Relative Wall Thickness 0.5 RV Internal Dim ED PLAX 3.1 cm LA Systolic Diameter LX 3.4 cm 3.0 - 4.0 / 2.7 - 3.8 cm LV Diastolic Volume MOD 4C 57.0 cm??? LV Systolic Volume MOD 4C 22.8 cm??? LV Ejection Fraction MOD 4C 60.0 % LV Cardiac Index MOD 4C 1401.9 cm???/min???m??? LV Diastolic Length 4C 8.0 cm LV Systolic Length 4C 6.7 cm LV Diastolic Volume MOD 2C 41.2 cm??? LV Systolic Volume MOD 2C 20.4 cm??? LV Ejection Fraction MOD 2C 50.5 % LV Cardiac Index MOD 2C 853.6 cm???/min???m??? LV Diastolic Length 2C 7.4 cm LV Systolic Length 2C 6.7 cm Aorta at Sinotubular Diameter 3.1 cm DOPPLER AV Peak Velocity 114.4 cm/s AV Peak Gradient 5.2 mmHg Mitral E Point Velocity 92.8 cm/s Mitral A Point Velocity 115.5 cm/s Mitral E to A Ratio 0.8 MV Deceleration Time 298.5 ms MV E' Velocity 7.8 cm/s Mitral E to MV E' Ratio 11.8 TR Peak Velocity 306.1 cm/s TR Peak Gradient 37.5 mmHg Right Ventricular Systolic Press 47.5 mmHg FINDINGS Left Ventricle Left ventricular ejection fraction is estimated at 55-60 %. Left ventricular cavity size normal. Normal left ventricular systolic function with no obvious regional wall motion abnormalities. Right Ventricle Normal right ventricular size. Moderate pulmonary hypertension. Right Atrium Normal right atrial size. No right atrial thrombus or mass seen. Left Atrium Normal left atrial size. No left atrial thrombus or mass present. Mitral Valve Structurally normal mitral valve. Mitral valve thickened. mild mitral regurgitation. Aortic Valve Trileaflet aortic valve. No aortic valve stenosis or regurgitation. Tricuspid Valve Structurally normal tricuspid valve. Mild tricuspid regurgitation. Pulmonic Valve Pulmonic valve not well visualized. No pulmonic regurgitation. Pericardium No pericardial effusion. Aorta Normal size aortic root and proximal ascending aorta. CONCLUSIONS 1. Normal left ventricular size and systolic function 2. Mild mitral and tricuspid regurgitation 3. Moderate pulmonary hypertension Previewed by: Dr. Olga Corbin MD (Electronically Signed) Final Date: 04 October 2024 07:04
== END | disposition home or self-care (01) ==
LOC: RADECHMAIN 15:54
PROVIDERS: ATTEND Internal Medicine
DX: I08.1 Rheumatic disorders of both mitral and tricuspid valves (principal); I27.20 Pulmonary hypertension, unspecified
CPT/HCPCS: 93306

== ENCOUNTER → 2024-10-09 | Outpatient (CLI) | payer MEDICARE ==
[2024-10-09 16:27] LABS: HGB 12.5 g/dL (12.0-15.0); MCH 28.7 pg (27.0-32.0); MCHC 30.5 g/dL (32.0-37.0); Mean Platelet Volume 12.2 FL (9.5-12.2); NRBC Per 100 WBC 0 X 10*3/uL (0.00-0.01); Platelet Count 125 X 10*3/uL (140-440); RBC 4.36 X 10*6/uL (4.10-5.20); RDW 14.2 % (11.5-14.5); WBC 6.87 X 10*3/uL (4.50-10.00)
[2024-10-09 16:28] LABS: Basophils # (A) 0.07 X 10*3/uL (0.00-0.10); Eosinophils # (A) 0.12 X 10*3/uL (0.04-0.35); Eosinophils % (A) 1.7 %; Lymphocytes # (A) 1.24 X 10*3/uL (0.90-5.00); Monocytes # (A) 0.74 X 10*3/uL (0.20-1.00); Monocytes % (A) 10.8 %; Neutrophils # (A) 4.69 X 10*3/uL (1.80-7.70); Neutrophils % (A) 68.4 %
[2024-10-09 16:53] LABS: Blood Urea Nitrogen 9.2 mg/dL (9.0-27.0); Chloride 103 mmol/L (96-109); Glucose 112 mg/dL (70-110); Potassium 3.6 mmol/L (3.5-5.5); Sodium 140 mmol/L (135-145)
[2024-10-09 18:54] LABS: Appearance,Urine Clear (Clear); Bilirubin,Urine Negative (Negative); Blood,Urine Moderate (Negative); Color,Urine Yellow (Yellow); Ketones,Urine Trace (Negative); Nitrite,Urine Negative (Negative); Specific Gravity,Urine 1.023 (1.001-1.030); Urobilinogen,Urine 0.2 E.U./DL
[2024-10-09 19:15] LABS: Bacteria,Urine Trace (None Seen); Calcium Oxalate Crystals,Urine Present (None Seen)
== END | disposition home or self-care (01) ==
LOC: LABPAT 11:02
PROVIDERS: ATTEND Urology
DX: Z01.812 Encounter for preprocedural laboratory examination (principal); N20.0 Calculus of kidney
CPT/HCPCS: 80048; 81001; 85025; 87086

== ENCOUNTER 2024-10-17 10:25 | Day surgery (SDC) | payer MEDICARE ==
--- NOTE | 2024-10-12 12:17 | P.HPIHPCON ---
History of Present Illness H&P Date: 10/12/24 Chief Complaint: Bilateral renal stones This is a 78-year-old female with history of bilateral renal stones. She does have extensive history of kidney stones. She is symptomatic from recurrent stone. Option of bilateral ureteroscopy with holmium laser was discussed. She is aware of the risk which include but not limited to bleeding, infection, injury to the ureter. She understood all the risk and agreed to proceed Consent for Procedure: I have explained the operation/procedure to the patient, including the risks, benefits, side effects, alternative therapies (including not receiving the proposed treatment or service), the likelihood of the patient achieving his/her goals, and potential recuperation problems for the procedure/sedation/analgesia, as well as any blood products, if indicated. I also explained to the patient the risks, benefits and side effects of the alternatives, as well as the risks related to not receiving the proposed procedure, care, treatment, or services. Past Medical History Past Medical History: Cancer, Diabetes Mellitus, GERD/Reflux, Hyperlipidemia, Hypertension, Osteoarthritis (OA), Pneumonia, Thyroid Disorder Additional Past Medical History / Comment(s): Lt and rt breast cancer with lumpectomy/radiation , UTI,SEE DR DAY'S HISTORY AND PHYSICAL FOR CARDIAC HISTORY , kidney stones, chronic hypokalemia, hypothyroid, iron deficiency anemia, sinus problems, R upper arm varicosity, arthritis in R hand and neck, osteopenia. Type II diabetic NIDDM. History of Any Multi-Drug Resistant Organisms: None Reported Past Surgical History: Appendectomy, Bowel Resection, Breast Surgery, Cholecystectomy, Hysterectomy, Joint Replacement, Orthopedic Surgery, Tonsillectomy Additional Past Surgical History / Comment(s): open cholecystectomy many years ago, aidan hip replacements, low back surgery, L hand tendon surgery, cystoscopies, kidney stone removal (lithotripsy/stents-all out now), L and breast lumpectomy, bilateral cataract surgery with lens implants, colonoscopies, Migel fundoplication.RIGHT BREAST-LUMPECTOMY Past Anesthesia/Blood Transfusion Reactions: No Reported Reaction, Postoperative Nausea & Vomiting (PONV) Additional Past Anesthesia/Blood Transfusion Reaction / Comment(s): No hx of blood transfusion to date. Past Psychological History: Anxiety, Depression Smoking Status: Never smoker Past Alcohol Use History: None Reported Past Drug Use History: None Reported - Past Family History Mother Family Medical History: Cancer Additional Family Medical History / Comment(s): Mother had pancreatic cancer. She of this in her early 70s. Daughter(s) Family Medical History: Cancer Additional Family Medical History / Comment(s): Patient has 2 daughters and one of her daughters is BRCA gene positive. Daughter had colon cancer. Son(s) Family Medical History: No Reported History Additional Family Medical History / Comment(s): Patient has one son with no major medical problems. Sister(s) Family Medical History: Cancer Additional Family Medical History / Comment(s): Patient has 2 sisters with thyroid disease and one with breast cancer. Father Family Medical History: Myocardial Infarction (AL) Additional Family Medical History / Comment(s): Father at the age of 52 yrs from a AL. He was a smoker. Medications and Allergies Home Medications Medication Instructions Recorded Confirmed Type ALPRAZolam [Xanax] 0.5 mg PO HS 02/04/15 03/17/24 History Atorvastatin [Lipitor] 10 mg PO W/SUPPER 02/10/18 03/17/24 History HYDROcodone/APAP 10-325MG [[place] 1 tab PO Q12H PRN 02/10/18 03/17/24 History 10-325] Fluticasone Nasal [place] [Flonase 1 spr EA NOSTRIL HS 02/08/19 03/17/24 History Nasal [place]] Levothyroxine Sodium [Synthroid] 25 mcg PO AC-BRKFST 02/08/19 03/17/24 History Bisoprolol-Hctz 5-6.25 mg [Ziac 1 tab PO QAM 03/13/24 03/17/24 History 5-6.25 MG] Caltrate(Unknown Dose) 1 tab PO W/SUPPER 03/13/24 03/17/24 History Dapagliflozin Propanediol [Farxiga] 5 mg PO AC-BRKFST 03/13/24 03/17/24 History Magnesium(Unknown Dose) 1 tab PO W/SUPPER 03/13/24 03/17/24 History Montelukast [Singulair] 10 mg PO W/SUPPER 03/13/24 03/17/24 History Omeprazole 40 mg PO QAM 03/13/24 03/17/24 History Potassium Chloride [Klor-Con 10 ER] 10 meq PO W/SUPPER 03/13/24 03/17/24 History Tamoxifen [Nolvadex] 10 mg PO Q2D 03/13/24 03/17/24 History Venlafaxine HCl ER [Effexor XR] 225 mg PO AC-BRKFST 03/13/24 03/17/24 History Vitamin B-12(Unknown Dose) 1 tab PO W/SUPPER 03/13/24 03/17/24 History Vitamin D3(Unknown Dose) 1 tab PO W/SUPPER 03/13/24 03/17/24 History dilTIAZem HCL [dilTIAZem HCL 24Hr 180 mg PO W/SUPPER 03/13/24 03/17/24 History ER (LA)] metFORMIN HCL ER [Glucophage XR] 500 mg PO W/SUPPER 03/13/24 03/17/24 History Ciprofloxacin HCl [Cipro] 500 mg PO Q12HR 7 Days #14 tab 03/15/24 03/17/24 Rx Tamsulosin [Flomax] 0.4 mg PO PC-BRKFST #30 cap 03/15/24 03/17/24 Rx Ferrous Sulfate [Iron] 325 mg PO 1800 03/17/24 History Allergies Allergy/AdvReac Type Severity Reaction Status Date / Time amoxicillin trihydrate Allergy Rash/Hives Verified 03/17/24 15:10 [From Augmentin] Penicillins Allergy Rash/Hives Verified 03/17/24 15:10 on face potassium clavulanate Allergy Rash/Hives Verified 03/17/24 15:10 [From Augmentin] Surgical - Exam - General no distress, moderate pain - Eyes normal ocular movement, no pale - ENT normal nares, normal mucosa - Respiratory normal expansion, normal respiratory effort - Abdomen Abdomen: soft, non tender, no distended Assessment and Plan Assessment: OR for bilateral ureteroscopy, millimeter lithotripsy, stone basketing and stent insertion
[2024-10-13 11:11] VITALS: BMI 26.7
[~2024-10-17 10:25] MED LIST changes: +HYDROmorphone 0.5 MG/0.5 ML SYRINGE IVP PRN; +LIDOCAINE 1% (10MG/ML) FOR IV START INTRADERMA PRN; +MIDAZOLAM 2 MG/2 ML VIAL IV PRN; -SODIUM CHLORIDE 0.9% 1,000 ML IV SCH; +fentaNYL (PF) 50 MCG/ML 2 ML AMP IVP PRN
[2024-10-17] MEDS: IV FLUID CONTINUATION 1,000 ML IV ONE (10:38)
[2024-10-17 10:46] VITALS: TEMP 98.1
[2024-10-17 10:51] LABS: Glucose,Whole Blood 103 mg/dL (70-110)
[2024-10-17] MEDS: ONDANSETRON 4 MG/2 ML VIAL IVP ONE (10:52)
[2024-10-17] MEDS: DEXAMETHASONE SOD PHOSPHATE 4 MG/ML 1 ML VIAL IV ONE (10:52)
[2024-10-17] MEDS: LACTATED RINGERS 1,000 ML IV SCH (10:53)
[2024-10-17] MEDS ORDERED: PROPOFOL 10 MG/ML 20 ML VIAL IV ONE (11:10)
[2024-10-17] MEDS ORDERED: SUCCINYLCHOLINE CHLORIDE 200 MG/10 ML VIAL IV ONE (11:10)
[2024-10-17] MEDS ORDERED: LIDOCAINE 1% INJ 10MG/ML (20 ML MDV) ONE (11:10)
[2024-10-17] MEDS ORDERED: LABETALOL 5 MG/ML VIAL MDV ONE (11:10)
[2024-10-17] MEDS ORDERED: fentaNYL (PF) 50 MCG/ML 2 ML AMP ONE (11:10)
[2024-10-17] MEDS: CIPROFLOXACIN/DEXTROSE PMX 400 MG in DEXTROSE/WATER 1 200ML.BAG IVPB PRN (11:15)
--- NOTE | 2024-10-17 13:09 | FL ---
EXAMINATION TYPE: FL guidance operating room DATE OF EXAM: 10/17/[address] Clarke for LT sided stone 54 sec fluoro time .[id number] DAP SP/SC 9 images are submitted. [facility], , 10/17/2024 1:07 PM
--- NOTE | 2024-10-17 13:16 | P.OP ---
Date of Procedure: 10/17/24 Preoperative Diagnosis: Bilateral renal stones Postoperative Diagnosis: Same Procedure(s) Performed: Cystoscopy, bilateral ureteroscopy, millimeter orthotripsy, stone basketing and stent insertion Implants: 6 [place] by 24 cm stents in the bilateral ureters Anesthesia: KRISTI Surgeon: Bryan Clarke Estimated Blood Loss (ml): 5 Pathology: other (Right renal stone) Condition: stable Disposition: PACU Indications for Procedure: This is a 78-year-old female with history of bilateral renal stones. She does have extensive history of kidney stones. She is symptomatic from recurrent stone. Option of bilateral ureteroscopy with holmium laser was discussed. She is aware of the risk which include but not limited to bleeding, infection, injury to the ureter. She understood all the risk and agreed to proceed Operative Findings: Multiple bilateral renal stones Description of Procedure: Patient brought to the operating room, general anesthesia was induced. She was prepped and draped in sterile fashion placed in a dorsolithotomy position. Cystoscopy fitted through the 21 [place] sheath was inserted per urethra, cystoscopy was performed showed no abnormality within the bladder. Attention was then carried to the right ureteral orifice, this was intubated with a sensor wire, the wire was advanced under fluoroscopy into the kidney. Next an 1113 [place] access sheath was passed over the wire and into the proximal ureter. The flexible ureteroscope was inserted through the access sheath, renoscopy was performed which showed multiple stones throughout the kidney. Using the holmium laser the stones were completely dusted, any sizable fragments were removed using the stone basket. Repeat renoscopy showed no sizable fragments or injury to the kidney, all the fragments were smaller than the diameter of the laser. On fluoroscopy there was no radiopaque density seen. Pullback ureteroscopy was performed showed no injury to the ureter or any ureteral stone. As ureteroscope was withdrawn a sensor wire was advanced through. Next a ureteral stent was passed over the wire, the proximal curl was visualized on fluoroscopy and the distal curl was visualized using the cystoscope. Attention was then carried to the left side which was also intubated with a sensor wire. I Attempted to advance an 1113 [place] access sheath over the wire under fluoroscopy, but resistance was met at the distal ureter. At this point the ureter was dilated using the inner part of the access sheath. I reattempted to advance the access sheath but resistance was still met at the distal ureter. At this time the flexible ureteroscope was backloaded over the wire and was advanced under fluoroscopy into the kidney. Renoscopy was performed showed multiple sizable stones within the kidney. Using the holmium laser the stone was dusted, one of the stone in the lower pole was repositioned into the upper pole using the stone basket when it was dusted. Repeat renoscopy showed no sizable fragments or injury to the kidney on fluoroscopy there is no radiopaque densities. There was significant amount of dust which slightly limited visualization but there was no obvious sizable fragments. Pullback ureteroscopy was performed showed no injury to the ureter and ureteral stones, as ureteroscope was withdrawn a sensor wire was advanced through. Next a ureteral stent was passed over the wire, the proximal curl was visualized on fluoroscopy and the distal curl was visualized using cystoscope. The bladder was emptied at the end of the case. Patient tolerated procedure well was taken to recovery in stable condition
[2024-10-17 13:20] LABS: Glucose,Whole Blood 116 mg/dL (70-110)
[2024-10-17 14:04] VITALS: RESP 16
[2024-10-17 14:17] VITALS: BP 154/88; PULSE 74
== END 2024-10-17 14:31 | disposition home or self-care (01) ==
LOC: OR 10:25
PROVIDERS: ATTEND Urology
DX: N20.0 Calculus of kidney (principal); E03.9 Hypothyroidism, unspecified; E11.9 Type 2 diabetes mellitus without complications; E78.5 Hyperlipidemia, unspecified; F32.A Depression, unspecified; F41.9 Anxiety disorder, unspecified; I10 Essential (primary) hypertension; M85.80 Other specified disorders of bone density and structure, unspecified site; Z85.3 Personal history of malignant neoplasm of breast; Z88.0 Allergy status to penicillin; Z88.1 Allergy status to other antibiotic agents; Z90.49 Acquired absence of other specified parts of digestive tract; Z90.710 Acquired absence of both cervix and uterus; Z79.890 Hormone replacement therapy; Z79.84 Long term (current) use of oral hypoglycemic drugs; Z79.899 Other long term (current) drug therapy
CPT/HCPCS: 52356; 82365; C2625; C1769; J0330; J1100; J2405; J2003; J3010; J0744; J2704; J1920

== ENCOUNTER → 2024-11-17 | Outpatient (CLI) | payer MEDICARE ==
--- NOTE | 2024-11-19 18:30 | US ---
EXAMINATION TYPE: US liver DATE OF EXAM: 11/17/2024 COMPARISON: CT 09/21/24 CLINICAL INDICATION: Female, 79 years old with history of R74.01 ELEV ALT/AST; Elevated liver enzymes TECHNIQUE: Grayscale and color Doppler imaging of the right upper quadrant was performed. 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 No focal lesion. Gallbladder: Surgically absent Evidence for sonographic Burns's sign: No CBD: upper limits for post-cholecystectomy status. Limited evaluation due to bowel gas. Measured [address] of 09/21/2024. Right Kidney: No hydronephrosis or masses seen IMPRESSION: 1. Bile duct measured 8 mm back on 09/21/2024. Currently measuring 1.0 cm. Possibly due to chronic pos tcholecystectomy status. Short interval follow-up ultrasound if concern for early biliary obstruction . 2. Mildly echogenic and borderline enlarged liver. Possible underlying cirrhosis. Appropriate further clinical evaluation advised. [facility], Workstation: [email or web address], 11/19/2024 6:27 PM
== END | disposition home or self-care (01) ==
LOC: RADUSWWP 08:46
PROVIDERS: ATTEND Internal Medicine
DX: R74.01 Elevation of levels of liver transaminase levels (principal); R16.0 Hepatomegaly, not elsewhere classified
CPT/HCPCS: 76705